=== PATIENT | female | born 1970 | race Caucasian/White ===

== ENCOUNTER → 2016-03-29 | Outpatient (CLI) | payer BC ==
[~2016-03-29] MED LIST: ASPI81TA28 PO; BUPR-79 PO; CHOL100010 PO; CLC100 PO; DAPA1TAB2 PO; ESZO1TAB16 PO; EZET10TA63 PO; HYDR200T5 PO; INSDGI SC; LORA-741 PO; MOMLX PO; MTR600X PO; OMEP20CA59 PO; ONDA4TAB46 PO; OXYC5TAB PO; RANI300T2 PO; SIMV80TA2 PO
[2016-03-29 09:32] LABS: BASO % 0.3 %; BASO ABS # 0.06 K/uL (0-0.2); COMPLETE YES; EOS % 2.1 %; HEMATOCRIT 44.9 % (37-47); IG% 0.3 %; LYMPH % 27.1 %; LYMPH ABS # 4.66 K/uL (1.2-3.4); MEAN CELL VOLUME 87.7 fL (80-100); MEAN CORPUSCULAR HEMOGLOBIN 29.7 pg (25-34); MEAN CORPUSCULAR HGB CONC 33.9 g/dl (32-36); MEAN PLATELET VOLUME 9.7 fL (7.4-10.4); MONO % 5.4 %; NEUT % 64.8 %; PLATELET COUNT 453 K/uL (130-400); RED BLOOD COUNT 5.12 M/uL (4.2-5.4); WHITE BLOOD COUNT 17.19 K/uL (4.8-10.8)
[2016-03-29 09:51] LABS: ESTIMATED AVERAGE GLUCOSE 166 mg/dl; HA1C FLAG Normal (Normal)
[2016-03-29 10:08] LABS: ALT/SGPT 19 U/L (12-78); AST/SGOT 8 U/L (15-37); BLOOD UREA NITROGEN 17 mg/dl (7-18); CALCIUM 8.9 mg/dl (8.5-10.1); CARBON DIOXIDE 23 mmol/L (21-32); CHLORIDE 106 mmol/L (98-107); CHOLESTEROL 189 mg/dl (0-200); CREATININE 0.76 mg/dl (0.60-1.20); GLUCOSE 160 mg/dl (70-99); POTASSIUM 3.9 mmol/L (3.5-5.1); SODIUM 140 mmol/L (136-145); TRIGLYCERIDES 449 mg/dl (0-150)
[2016-03-29 10:11] LABS: HDL CHOLESTEROL 21 mg/dl
== END | disposition home or self-care (01) ==
LOC: C.LAB1850 07:19
DX: E11.9 Type 2 diabetes mellitus without complications (principal); E78.5 Hyperlipidemia, unspecified

== ENCOUNTER → 2016-03-31 | Outpatient (CLI) | payer BC ==
[2016-03-31 17:20] LABS: BASO % 0.2 %; BASO ABS # 0.04 K/uL (0-0.2); COMPLETE YES; EOS % 1.7 %; HEMATOCRIT 47.3 % (37-47); IG% 0.4 %; LYMPH % 27.1 %; MEAN CELL VOLUME 88.2 fL (80-100); MEAN PLATELET VOLUME 9.2 fL (7.4-10.4); MONO % 5.4 %; NEUT % 65.2 %; PLATELET COUNT 420 K/uL (130-400); RED BLOOD COUNT 5.36 M/uL (4.2-5.4); WHITE BLOOD COUNT 18.09 K/uL (4.8-10.8)
--- NOTE | 2016-03-31 17:48 | DIAGNOSTIC IMAGING REPORT ---
CHEST 2 VIEWS ROUTINE HISTORY: Atypical CHEST PAIN/LEUKOCYTOSIS COMPARISON: None. FINDINGS: The lungs are clear. Cardiac silhouette is normal in size. No pleural effusions. No pneumothorax. IMPRESSION: No acute process. Electronically signed by: Wilton Duckworth M.D. 03/31/2016 5:47 PM Dictated Date/Time: 03/31/2016 5:46 PM
[2016-03-31 18:03] LABS: CKMB/CK RATIO 1.4 (0-3.0)
== END | disposition home or self-care (01) ==
LOC: C.CPL 16:54
DX: R07.9 Chest pain, unspecified (principal); D72.829 Elevated white blood cell count, unspecified

== ENCOUNTER → 2016-04-22 | Outpatient (CLI) | payer BC ==
--- NOTE | 2016-04-22 17:11 | EXERCISE STRESS ECHO ---
*NOTICE TO RECEIVING REPUBLICAN AGENCY This information is strictly Confidential and protected under [place] law. [place] law prohibits you from making any further disclosure of this information unless further disclosure is expressly permitted by the written consent of the person to whom it pertains or is authorized by law. A general authorization for the release of medical or other information is not sufficient for this purpose. Hospital accepts no responsibility if the information is made available to any other person, INCLUDING THE PATIENT. Interpretation Summary * Name: JOSEPH LAU Study Date: 04/22/2016 09:45 AM BP: 115/64 mmHg * Patient Location: [facility] HR: 87 * : 1970 (M/d/yyyy) Gender: Female Height: 61 in * Age: 45 yrs Ethnicity: [place] Weight: 139 lb * Ordering Physician: Easton Hua * Referring Physician: Easton Hua D.O. * Performed By: Anitra Falcon * * Reason For Study: REDUCED EXERTIONAL TOLERANCE, DYSPNEA, DIABETES * BSA: 1.6 m2 * -- Conclusions -- * Left ventricular systolic function is normal. Procedure Details * ECHOEX, CPT #99246 * ECHO DOPPLER, CPT #19812 * ECHO COLOR FLOW, CPT #46778 Left Ventricular Findings with Stress * Normal baseline echocardiogram EKG and echo images suggest mild ischemia in the anterior apex., but her overall risk for coronary disease is low Left Ventricle * The left ventricle is normal in size. * There is normal left ventricular wall thickness. * Left ventricular systolic function is normal. * The left ventricular wall motion is normal. Right Ventricle * The right ventricle is normal in size and function. Atria * The left atrial size is normal. * Right atrial size is normal. Mitral Valve * The mitral valve is grossly normal. * There is no mitral regurgitation noted. Tricuspid Valve * The tricuspid valve is not well visualized, but is grossly normal. * There is trace tricuspid regurgitation. Aortic Valve * The aortic valve is normal in structure and function. * No hemodynamically significant valvular aortic stenosis. * There is no significant aortic regurgitation. Great Vessels * The aortic root is normal size. Pericardium * There is no pericardial effusion. Stress Parameters * Sinus with T-wave flattening * 05mm horozontal depressions at peak exertion whcih resolved quickly in recovery * The stress portion of this study was personally supervised by the undersigned interpreting physician. * Rest heart rate was '87' BPM. * Rest blood pressure was '115/64' * Maximum heart rate achieved was 141 bpm. * Maximum heart rate was 81 % of maximum age-predicted heart rate. * Maximum blood pressure was '181/71' * Total exercise time was '8:28' * Maximum exercise MET level achieved was '10.1' METS * Maximum treadmill speed was '3.40' miles per hour. * Maximum treadmill elevation was '14.00'% grade. * Exercise was terminated due to 'fatigue.' * Target Heart Rate was not achieved due to fatigue. * The patient exhibited leg pain during exercise. * Normal blood pressure response to exercise. Left Ventricular Findings with Stress * Baseline echo reveals normal function and wall motion. Stress images suggest inducible hypokinesis of the anterior apex (mild) in one view No symptoms reported. Hughes treadmill score: 6 (low risk) Left Ventricular Diastolic Function * Normal diastolic function MMode 2D Measurements and Calculations IVSd 1.1 cm IVSs 1.5 cm LVIDd 4.0 cm LVIDs 2.7 cm LVPWd 0.88 cm LVPWs 1.3 cm IVS/LVPW 1.2 FS 30.7 % EDV(Teich) 68.5 ml ESV(Teich) 28.2 ml EF(Teich) 58.8 % EDV(cubed) 62.3 ml ESV(cubed) 20.8 ml EF(cubed) 66.7 % % IVS thick 36.3 % % LVPW thick 50.4 % LV mass(C)d 121.5 grams LV mass(C)dI 75.1 grams/m\S\2 LV mass(C)s 124.9 grams LV mass(C)sI 77.2 grams/m\S\2 CO(Teich) 3.1 l/min CI(Teich) 1.9 l/min/m\S\2 SV(Teich) 40.3 ml SI(Teich) 24.9 ml/m\S\2 CO(cubed) 3.2 l/min CI(cubed) 2.0 l/min/m\S\2 SV(cubed) 41.5 ml SI(cubed) 25.7 ml/m\S\2 ACS 1.1 cm LA dimension 3.0 cm asc Aorta Diam 2.4 cm LVOT diam 1.7 cm LVOT area 2.2 cm\S\2 LVAd ap4 22.0 cm\S\2 LVLd ap4 7.0 cm EDV(MOD-sp4) 58.4 ml LVAs ap4 13.1 cm\S\2 LVLs ap4 6.1 cm ESV(MOD-sp4) 24.5 ml EF(MOD-sp4) 58.0 % LVAd ap2 19.8 cm\S\2 LVLd ap2 7.1 cm EDV(MOD-sp2) 46.4 ml LVAs ap2 11.1 cm\S\2 LVLs ap2 5.5 cm ESV(MOD-sp2) 18.6 ml EF(MOD-sp2) 59.9 % CO(MOD-sp4) 2.6 l/min CI(MOD-sp4) 1.6 l/min/m\S\2 SV(MOD-sp4) 33.9 ml SI(MOD-sp4) 20.9 ml/m\S\2 CO(MOD-sp2) 2.2 l/min CI(MOD-sp2) 1.3 l/min/m\S\2 SV(MOD-sp2) 27.8 ml SI(MOD-sp2) 17.2 ml/m\S\2 Doppler Measurements and Calculations MV E max john 85.2 cm/sec MV A max john 71.8 cm/sec MV E/A 1.2 MV dec time 0.20 sec Ao V2 max 160.2 cm/sec Ao max PG 10.3 mmHg Ao max PG (full) 5.5 mmHg SHIV(V,A) 1.5 cm\S\2 SHIV(V,D) 1.5 cm\S\2 LV V1 max PG 4.7 mmHg LV V1 mean PG 2.2 mmHg LV V1 max 108.8 cm/sec LV V1 mean 68.1 cm/sec LV V1 VTI 24.9 cm SV(LVOT) 54.0 ml SI(LVOT) 33.3 ml/m\S\2 PA V2 max 66.4 cm/sec PA max PG 1.8 mmHg PI end-d john 106.6 cm/sec
== END | disposition home or self-care (01) ==
LOC: C.CPL 09:28
DX: R06.09 Other forms of dyspnea (principal); E78.5 Hyperlipidemia, unspecified; E11.8 Type 2 diabetes mellitus with unspecified complications; Z87.891 Personal history of nicotine dependence; Z82.49 Family history of ischemic heart disease and other diseases of the circulatory system

== ENCOUNTER → 2016-05-26 | Outpatient (CLI) | payer BC ==
[~2016-05-26] MED LIST changes: -DAPA1TAB2 PO; +DAPA1TAB8 PO
[2016-05-26 09:36] LABS: BASO % 0.2 %; BASO ABS # 0.03 K/uL (0-0.2); COMPLETE YES; EOS % 1.7 %; HEMATOCRIT 46.6 % (37-47); IG% 0.1 %; LYMPH % 24.1 %; LYMPH ABS # 3.47 K/uL (1.2-3.4); MEAN CELL VOLUME 90.5 fL (80-100); MEAN CORPUSCULAR HEMOGLOBIN 30.7 pg (25-34); MEAN CORPUSCULAR HGB CONC 33.9 g/dl (32-36); MEAN PLATELET VOLUME 9.8 fL (7.4-10.4); MONO % 5.5 %; NEUT % 68.4 %; PLATELET COUNT 382 K/uL (130-400); RED BLOOD COUNT 5.15 M/uL (4.2-5.4); WHITE BLOOD COUNT 14.37 K/uL (4.8-10.8)
[2016-05-26 09:54] LABS: ESTIMATED AVERAGE GLUCOSE 171 mg/dl; HA1C FLAG Normal (Normal)
[2016-05-30 00:37] LABS: ENDOMYSIAL IGA AB TC 15064 Negative (Negative); GLIADIN DEAMIDATED IgA AB 4 UNITS (<20); GLIADIN DEAMIDATED IgG AB 8 UNITS (<20)
--- NOTE | 2016-05-31 13:19 | CODING QUERY MEDICAL NECESSITY ---
SUPPORTING DIAGNOSIS NEEDED A supporting diagnosis is required for the test/procedure performed on this patient in order for us to be reimbursed by the patient's insurance. Please provide a supporting diagnosis for the following test/procedure listed below next to the test name along with your signature. *If there is no additional diagnosis for this patient that would support the following test/procedure please document that below next to the test/procedure. Test(s)/Procedure(s) that require a supporting diagnosis: DOS 05/26 * Vitamin D DIAGNOSIS: Provider Signature: Date: Thank you Marcela King Health Information Management Once completed, please kindly fax back to [phone] For questions please call [phone]
== END | disposition home or self-care (01) ==
LOC: C.LAB1850 07:52
DX: D72.829 Elevated white blood cell count, unspecified (principal); R10.9 Unspecified abdominal pain; E11.9 Type 2 diabetes mellitus without complications; E55.9 Vitamin D deficiency, unspecified

== ENCOUNTER → 2016-07-19 | Outpatient (CLI) | payer BC ==
[2016-07-19 10:09] LABS: BLOOD UREA NITROGEN 15 mg/dl (7-18); BUN/CREATININE RATIO 17.9 (10-20); CARBON DIOXIDE 23 mmol/L (21-32); CHLORIDE 108 mmol/L (98-107); CREATININE 0.86 mg/dl (0.60-1.20); GLUCOSE 176 mg/dl (70-99); POTASSIUM 3.9 mmol/L (3.5-5.1); SODIUM 141 mmol/L (136-145)
[2016-07-19 10:15] LABS: CALCIUM 8.9 mg/dl (8.5-10.1)
[2016-07-19 10:18] LABS: ESTIMATED AVERAGE GLUCOSE 157 mg/dl; HA1C FLAG Normal (Normal)
[2016-07-19 10:21] LABS: RATIO 26.8 mcg/mg (0-30.0)
== END | disposition home or self-care (01) ==
LOC: C.LAB1850 07:34
DX: E11.9 Type 2 diabetes mellitus without complications (principal)

== ENCOUNTER → 2016-10-05 | Outpatient (CLI) | payer BC ==
[~2016-10-05] MED LIST changes: +DAPA1TAB2 PO; -DAPA1TAB8 PO
[2016-10-05 09:54] LABS: BASO % 0.4 %; BASO ABS # 0.06 K/uL (0-0.2); COMPLETE YES; EOS % 2.3 %; HEMATOCRIT 45.7 % (37-47); IG% 0.4 %; LYMPH % 20.9 %; LYMPH ABS # 3.32 K/uL (1.2-3.4); MEAN CELL VOLUME 90.3 fL (80-100); MEAN CORPUSCULAR HEMOGLOBIN 30.4 pg (25-34); MEAN CORPUSCULAR HGB CONC 33.7 g/dl (32-36); MEAN PLATELET VOLUME 10.2 fL (7.4-10.4); PLATELET COUNT 359 K/uL (130-400); RED BLOOD COUNT 5.06 M/uL (4.2-5.4); WHITE BLOOD COUNT 15.92 K/uL (4.8-10.8)
[2016-10-05 10:03] LABS: BLOOD UREA NITROGEN 19 mg/dl (7-18); BUN/CREATININE RATIO 23.8 (10-20); CARBON DIOXIDE 27 mmol/L (21-32); CHLORIDE 105 mmol/L (98-107); CREATININE 0.79 mg/dl (0.60-1.20); GLUCOSE 147 mg/dl (70-99); SODIUM 137 mmol/L (136-145)
[2016-10-05 10:10] LABS: ESTIMATED AVERAGE GLUCOSE 148 mg/dl; HA1C FLAG Normal (Normal)
== END | disposition home or self-care (01) ==
LOC: C.LAB1850 07:31
DX: D72.829 Elevated white blood cell count, unspecified (principal); E11.9 Type 2 diabetes mellitus without complications

== ENCOUNTER → 2016-12-22 | Outpatient (CLI) | payer BC ==
[~2016-12-22] MED LIST changes: -DAPA1TAB2 PO; +DAPA1TAB8 PO
[2016-12-22 09:37] LABS: BASO % 0.5 %; BASO ABS # 0.06 K/uL (0-0.2); COMPLETE YES; EOS % 2.4 %; HEMATOCRIT 45.4 % (37-47); IG% 0.3 %; LYMPH ABS # 3.53 K/uL (1.2-3.4); MEAN CELL VOLUME 90.4 fL (80-100); MEAN CORPUSCULAR HEMOGLOBIN 30.7 pg (25-34); MEAN CORPUSCULAR HGB CONC 33.9 g/dl (32-36); MEAN PLATELET VOLUME 9.4 fL (7.4-10.4); MONO % 6.6 %; NEUT % 63.2 %; PLATELET COUNT 422 K/uL (130-400); RED BLOOD COUNT 5.02 M/uL (4.2-5.4); WHITE BLOOD COUNT 13.07 K/uL (4.8-10.8)
[2016-12-22 09:47] LABS: ALT/SGPT 24 U/L (12-78); AST/SGOT 16 U/L (15-37); BLOOD UREA NITROGEN 18 mg/dl (7-18); BUN/CREATININE RATIO 22.9 (10-20); CALCIUM 8.5 mg/dl (8.5-10.1); CARBON DIOXIDE 26 mmol/L (21-32); CHLORIDE 106 mmol/L (98-107); CHOLESTEROL 168 mg/dl (0-200); GLUCOSE 156 mg/dl (70-99); POTASSIUM 3.9 mmol/L (3.5-5.1); SODIUM 140 mmol/L (136-145)
[2016-12-22 09:50] LABS: HDL CHOLESTEROL 28 mg/dl; TRIGLYCERIDES 149 mg/dl (0-150); VERY LOW DENSITY LIPOPROT CALC 30 mg/dl
[2016-12-22 10:14] LABS: ESTIMATED AVERAGE GLUCOSE 151 mg/dl; HA1C FLAG Normal (Normal)
== END | disposition home or self-care (01) ==
LOC: C.LAB1850 07:35
DX: E11.9 Type 2 diabetes mellitus without complications (principal); E78.5 Hyperlipidemia, unspecified; D72.829 Elevated white blood cell count, unspecified

== ENCOUNTER → 2017-08-30 | Outpatient (CLI) | payer OTHER ==
[~2017-08-30] MED LIST changes: +DAPA1TAB8; +NTRGSL/4 UT; +NVLGI7030 SC; +PLQ200; +ROSU40TA PO; +[UNRECOGNIZED DRUG - OTHER]
--- NOTE | 2017-08-30 16:34 | DIAGNOSTIC IMAGING REPORT ---
CERVICAL WITHOUT CONTRAST HISTORY: Pain. Neuropathy. CERVICAL RADICULOPATHY, RT SIDE TECHNIQUE: Multiplanar multisequence MRI of the cervical spine was performed without the use of contrast. COMPARISON STUDY: None. FINDINGS: Signal characteristics of the vertebral bodies are unremarkable. Minimal disc desiccation C6-C7. Signal characteristics of all the vertebral disks otherwise are unremarkable. Note is made of low-lying cerebellar tonsils C2-C3: No significant central canal or neural foraminal narrowing. C3-C4: No significant central canal or neural foraminal narrowing. C4-C5: No significant central canal or neural foraminal narrowing. C5-C6: No significant central canal or neural foraminal narrowing. C6-C7: Moderate right posterior disc herniation. Mild focal impact right anterior aspect cervical cord with moderate narrowing right neuroforamina. C7-T1: No significant central canal or neural foraminal narrowing. IMPRESSION: 1. Mild right posterior disc herniation C6-C7.. 2. This creates a mild impact upon the anterior aspect of the cervical cord as well as mild compromise of the right neuroforamina.. 3. Study is otherwise negative. The above report was generated using voice recognition software. It may contain grammatical, syntax or spelling errors. Electronically signed by: Yang Arriaza M.D. 08/30/2017 4:33 PM Dictated Date/Time: 08/30/2017 4:30 PM
== END | disposition home or self-care (01) ==
LOC: C.MRI 15:40
DX: M50.20 Other cervical disc displacement, unspecified cervical region (principal)

== ENCOUNTER → 2017-09-12 | Outpatient (CLI) | payer OTHER ==
[~2017-09-12] MED LIST changes: -CLC100 PO; -DAPA1TAB8; -EZET10TA63 PO; -HYDR200T5 PO; -INSDGI SC; -MOMLX PO; -OXYC5TAB PO; -SIMV80TA2 PO
== END | disposition home or self-care (01) ==
LOC: C.LABSPEC 14:59
DX: N39.0 Urinary tract infection, site not specified (principal)

== ENCOUNTER 2022-03-11 15:15 | Inpatient (IN) ==
[2022-03-11 15:51] LABS: Basophils % (auto) 0.5 %; Eosinophils # (auto) 0.19 K/uL (0-0.50); Eosinophils % (auto) 0.9 %; Hematocrit (blood only) 46.7 % (37.0-47.0); Immature Granulocytes # (auto) 0.12 K/uL (0.01-0.20); Immature Granulocytes % (auto) 0.5 %; Lymphocytes # (auto) 2.83 K/uL (1.2-3.4); Lymphocytes % (auto) 12.9 %; Mean Corpuscular Hemoglobin 30.9 pg (25.0-34.0); Mean Corpuscular Hgb Conc 34.3 g/dL (32.0-36.0); Mean Corpuscular Volume 90.3 fL (80.0-100.0); Monocytes # (auto) 1.46 K/uL (0.11-0.59); Monocytes % (auto) 6.6 %; Neutrophils # (auto) 17.31 K/uL (1.40-6.50); Neutrophils % (auto) 78.6 %; Platelet Count 403 K/uL (130-400); RDW Coefficient of Variation 13.3 % (11.5-14.5); RDW Standard Deviation 44.1 fL (36.4-46.3); Red Blood Count 5.17 M/uL (4.20-5.40); White Blood Count 22.01 K/ul (4.8-10.8)
[2022-03-11 16:02] LABS: Partial Thromboplastin Ratio 1.1; Partial Thromboplastin Time 31.3 Seconds (21.0-31.0); Prothrombin Time 10.9 Seconds (9.0-12.0)
[2022-03-11 16:05] LABS: Albumin Level 4.4 gm/dl (3.4-5.0); Anion Gap 9 (3-11); Bilirubin,Total 0.4 mg/dl (0.2-1.0); Calcium 10.1 mg/dl (8.5-10.1); Carbon Dioxide 28 mmol/L (21-32); Chloride 101 mmol/L (98-107); Magnesium 1.8 mg/dl (1.7-2.4); Potassium 4.1 mmol/L (3.5-5.1); Sodium 138 mmol/L (136-145)
[2022-03-11 16:11] LABS: Alanine Aminotransferase 15 U/L (7-52); Albumin Globulin Ratio 1.3 (0.9-2); Alkaline Phosphatase 95 U/L (34-104); Aspartate Aminotransferase 14 U/L (13-39); BUN Creatinine Ratio 15.7 (10-20); Blood Urea Nitrogen 14 mg/dl (6-23); Est GFR (African American) 85.8 ml/min; Globulin 3.4 gm/dl (2.5-4.0); Glucose 156 mg/dl (70-99(Fasting)); Total Protein 7.8 gm/dl (6.0-8.3)
[2022-03-11] MEDS ORDERED: CEFEPIME 2,000 MG/20 ML VIAL IV STA (16:12)
[2022-03-11] MEDS ORDERED: SODIUM CHLORIDE 0.9% 1000ML 1,000 ML IV SCH (16:15)
[2022-03-11] MEDS ORDERED: methylPREDNISolone 125 MG/2 ML VIAL IV STA (16:22)
[2022-03-11] MEDS ORDERED: ALBUT/IPRATROP 3MG/0.5MG NEB 3 ML VIAL NEB STA (16:22)
[2022-03-11] MEDS: SODIUM CHLORIDE 0.9% 1000ML 1,000 ML IV SCH ×2 (16:53→18:01)
--- NOTE | 2022-03-11 17:03 | XRay Report ---
XR chest 1V portable HISTORY: 51 years-old Female Sepsis acute chest pain COMPARISON: 01/01/2019 TECHNIQUE: AP view of the chest FINDINGS: Cardiomediastinal and hilar silhouettes are within normal limits. Subtle ill-defined patchy left midl joe airspace opacities. No pneumothorax, large pleural effusion or overt pulmonary edema. Bones of th e chest appear grossly intact. IMPRESSION: Subtle ill-defined left midlung airspace opacities are suspicious for pneumonia. ACT 112: Negative or not required by law. The above report was generated using voice recognition software. It may contain grammatical, syntax o r spelling errors. Electronically signed by: Casper Huber M.D. 03/11/2022 5:01 PM
[2022-03-11 17:57] LABS: Troponin I High Sensitivity 8.3 pg/ml (0-14)
[2022-03-11] MEDS ORDERED: ACETAMINOPHEN 325 MG TAB PO STA (18:09)
--- NOTE | 2022-03-11 18:13 | Emergency Department Note ---
Impression & Plan Pneumonia, Hypoxia ED Provider Note INFORMANT: Patient ED PROVIDER(S): Papo Law DO CHIEF COMPLAINT: Low pulse ox, pneumonia PLAN: Disposition: Admission Condition: Stable Outpatient prescription management: none Referral: I spoke with the hospitalist, who will see the patient for admission /observation and further evaluation and consultation. MEDICAL DECISION MAKING: This is a 51-year-old female who presents to the ED with a chief complaint of upper respiratory cold symptoms. The patient states that she saw her PCP yesterday and was clinically diagnosed with pneumonia. She was started on a Z- Aden. She states that her pulse ox at the office was in the high 80s. She does have a history of smoking and likely COPD although no formal diagnosis has ever been made. She reports 1 week of cough and upper respiratory symptoms. She took a home COVID test a couple of days ago that was negative. The patient also is a insulin-dependent diabetic. She reports pulse ox in the low 80s at home today and decided to come in for further evaluation. The patient also had a dose of prednisone last night. She was started on this. No inhalers. She does have wheezing on my exam. The patient does have a pneumonia in the left lung on chest x-ray. She does have a leukocytosis with a white blood cell count around 22,000. EKG showed a sinus tach at a rate of 110. Lactic acid and procalcitonin are negative. Because of the patient's hypoxia, I spoke with the hospitalist about inpatient evaluation. She was given IV cefepime here as well as 30 cc/kg of IV fluids and IV Solu-Medrol as well as a DuoNeb treatment. Triage Nursing notes reviewed. Vital Signs: reviewed Prior /Outside records reviewed: none Differential diagnosis: Differential includes pneumonia, bronchitis, pulmonary embolism, congestive heart failure less likely, other. Diagnostics, as interpreted by me: 12 lead ECG: Sinus tach at a rate of 110. No ST elevation. No PVCs. Normal QTC Cardiac Monitoring: none Medical decision rules: none Imaging studies: Chest x-ray: Left middle lobe pneumonia Procedures: none. Critical care: none. HPI: See MDM above. PAST MEDICAL HISTORY: See Below PAST SURGICAL HISTORY: See Below SOCIAL HISTORY: See Below HOME MEDICATIONS: See Below ALLERGIES: See Below VITALS: See Below PHYSICAL EXAMINATION: CONSTITUTIONAL/VITAL SIGNS: Reviewed GENERAL: Non-toxic in appearance. INTEGUMENTARY: Warm, dry, and [place]. HEAD: Normocephalic. EYES: without scleral icterus. ENT/OROPHARYNX: clear and moist. RESPIRATORY: No increased work of breathing. Lungs diminished bilaterally with some expiratory wheezing. CARDIOVASCULAR: Regular rate. Regular rhythm. GI/ABDOMEN: Soft and nontender. . EXTREMITIES: Normal NEUROLOGICAL: Intact without focal deficits. PSYCHIATRIC: Normal affect. MUSCULOSKELETAL: Normal. TRIAGE NURSING DOCUMENTATION REVIEWED. Past Med/Surg History Medical History (Updated 03/11/22 @ 18:13 by Papo Law DO) Anxiety disorder Depressive disorder Diabetes Diverticulitis Fibroid, uterine GERD (gastroesophageal reflux disease) Hypercholesterolemia Osteoarthritis Surgical History History of bilateral carpal tunnel release History of hysterectomy History of recent maxillofacial surgery Social History Smoking Status: Never smoker Cigarettes Per Day: 1 ppd; Preferred Language: Ug[place] marital status: Current Living Situation: Spouse current occupational status: employed current occupation: [employer] x 20 years Feels Safe at Home: Yes Allergies Allergies Allergy/AdvReac Type Severity Reaction Status Date / Time metformin AdvReac Unknown GI UPSET Verified 06/18/21 12:44 Home Meds Home Medications Medication Instructions Recorded Confirmed gabapentin 300 mg capsule 300 mg PO HS 05/30/18 06/18/21 aspirin 81 mg tablet,delayed 81 mg PO QAM 06/29/18 06/18/21 release (Adult Low Dose Aspirin) bupropion HCl 150 mg 24 hr tablet, 150 mg PO QAM 06/29/18 06/18/21 extended release (Wellbutrin XL) eszopiclone 3 mg tablet (Lunesta) 3 mg PO HS 06/29/18 06/18/21 hydroxychloroquine 200 mg tablet 200 mg PO QAM 06/29/18 06/18/21 (Plaquenil) ibuprofen 600 mg tablet 600 mg PO Q6H PRN pain 06/29/18 06/18/21 insulin admin supplies (InPen (for #1 ea 06/29/18 06/29/18 Novolog or Fiasp) subcutaneous) lorazepam 0.5 mg tablet (Ativan) 0.5 mg PO DAILY PRN Anxiety 06/29/18 06/18/21 nitroglycerin 0.4 mg sublingual 0.4 mg sublingual Q5M PRN Chest 06/29/18 06/18/21 tablet (Nitrostat) Pain omeprazole 40 mg capsule,delayed 40 mg PO Q OTHER DAY 06/29/18 06/18/21 release ondansetron 4 mg disintegrating 4 mg PO Q8H PRN Nausea 06/29/18 06/18/21 tablet ranitidine HCl 300 mg tablet 300 mg PO HS 06/29/18 06/18/21 (Zantac) rosuvastatin 40 mg tablet (Crestor) 40 mg PO PM 06/29/18 06/18/21 amitriptyline 10 mg tablet 30 mg PO HS 01/01/19 06/18/21 clonidine HCl 0.1 mg tablet 0.1 mg PO HS 01/01/19 06/18/21 insulin aspart U-100 100 unit/mL 0 unit subcut UD 01/01/19 06/18/21 (3 mL) subcutaneous pen (Novolog FlexPen U-100 Insulin aspart) dulaglutide 0.75 mg/0.5 mL 0.75 mg subcut WK 06/18/21 06/18/21 subcutaneous pen injector (Trulicity) Results & Data (ED) Vital Signs Vital Signs - 24 hr 03/11/22 15:26 03/11/22 15:29 03/11/22 16:55 Temperature 36.8 C Temperature Source Temporal Artery Scan Pulse Rate 107 H 101 H Pulse Rhythm Regular Regular Pulse Strength Normal Respiratory Rate 20 20 Respiratory Effort / Characteristics Non-Labored Spontaneous Respiratory Depth Normal Respiratory Pattern Regular Blood Pressure 156/79 H Blood Pressure Mean 104 Blood Pressure Position Sitting Pulse Oximetry 86 L 92 99 Oxygen Delivery Method Room Air Nasal Cannula Nasal Cannula Oxygen Flow Rate 4 4 Sepsis Recent Fever Within 48 Hours No Sepsis New/Unexplained Change in Mental Status No Sepsis Action Taken by Nursing No Action Required 03/11/22 16:38 03/11/22 16:45 Temperature Temperature Source Pulse Rate 106 H 108 H Pulse Rhythm Pulse Strength Respiratory Rate 35 H 33 H Respiratory Effort / Characteristics Respiratory Depth Respiratory Pattern Blood Pressure 127/66 Blood Pressure Mean 86 Blood Pressure Position Pulse Oximetry Oxygen Delivery Method Oxygen Flow Rate Sepsis Recent Fever Within 48 Hours Sepsis New/Unexplained Change in Mental Status Sepsis Action Taken by Nursing Laboratory Data 03/11/22 15:40 03/11/22 15:40 Lab Results 03/11/22 03/11/22 03/11/22 Range/Units 15:40 15:40 15:40 WBC 22.01 H (4.8-10.8) K/ul RBC 5.17 (4.20-5.40) M/uL Hgb 16.0 (12.0-16.0) g/dl Hct 46.7 (37.0-47.0) % MCV 90.3 (80.0-100.0) fL MCH 30.9 (25.0-34.0) pg MCHC 34.3 (32.0-36.0) g/dL RDW Std Deviation 44.1 (36.4-46.3) fL RDW Coeff of Narcisa 13.3 (11.5-14.5) % Plt Count 403 H (130-400) K/uL MPV 9.0 L (9.4-12.4) fL Immature Gran % (Auto) 0.5 % Neut % (Auto) 78.6 % Lymph % (Auto) 12.9 % [place] % (Auto) 6.6 % Eos % (Auto) 0.9 % Baso % (Auto) 0.5 % Neut # (Auto) 17.31 H (1.40-6.50) K/uL Lymph # (Auto) 2.83 (1.2-3.4) K/uL [place] # (Auto) 1.46 H (0.11-0.59) K/uL Eos # (Auto) 0.19 (0-0.50) K/uL Baso # (Auto) 0.10 (0-0.2) K/uL Immature Gran # (Auto) 0.12 (0.01-0.20) K/uL PT 10.9 (9.0-12.0) Seconds INR 1.0 (0.9-1.1) APTT 31.3 H (21.0-31.0) Seconds PTT Ratio 1.1 Sodium 138 (136-145) mmol/L Potassium 4.1 (3.5-5.1) mmol/L Chloride 101 (98-107) mmol/L Carbon Dioxide 28 (21-32) mmol/L Anion Gap 9 (3-11) BUN 14 (6-23) mg/dl Creatinine 0.89 (0.6-1.2) mg/dl Est Cr Clr Drug Dosing Not Reportable Est GFR ( Amer) 85.8 ml/min Est GFR (Non-Af Amer) 74.0 ml/min BUN/Creatinine Ratio 15.7 (10-20) Glucose 156 H (70-99(Fasting)) mg/dl Lactate (0.4-2.0) mmol/L Calcium 10.1 (8.5-10.1) mg/dl Magnesium 1.8 (1.7-2.4) mg/dl Total Bilirubin 0.4 (0.2-1.0) mg/dl AST 14 (13-39) U/L ALT 15 (7-52) U/L Alkaline Phosphatase 95 (34-104) U/L Troponin I High Sens 8.3 (0-14) pg/ml Total Protein 7.8 (6.0-8.3) gm/dl Albumin 4.4 (3.4-5.0) gm/dl Globulin 3.4 (2.5-4.0) gm/dl Albumin/Globulin Ratio 1.3 (0.9-2) Procalcitonin (0-0.5) ng/ml 03/11/22 03/11/22 03/11/22 Range/Units 15:40 15:40 16:41 WBC (4.8-10.8) K/ul RBC (4.20-5.40) M/uL Hgb (12.0-16.0) g/dl Hct (37.0-47.0) % MCV (80.0-100.0) fL MCH (25.0-34.0) pg MCHC (32.0-36.0) g/dL RDW Std Deviation (36.4-46.3) fL RDW Coeff of Narcisa (11.5-14.5) % Plt Count (130-400) K/uL MPV (9.4-12.4) fL Immature Gran % (Auto) % Neut % (Auto) % Lymph % (Auto) % [place] % (Auto) % Eos % (Auto) % Baso % (Auto) % Neut # (Auto) (1.40-6.50) K/uL Lymph # (Auto) (1.2-3.4) K/uL [place] # (Auto) (0.11-0.59) K/uL Eos # (Auto) (0-0.50) K/uL Baso # (Auto) (0-0.2) K/uL Immature Gran # (Auto) (0.01-0.20) K/uL PT (9.0-12.0) Seconds INR (0.9-1.1) APTT (21.0-31.0) Seconds PTT Ratio Sodium (136-145) mmol/L Potassium (3.5-5.1) mmol/L Chloride (98-107) mmol/L Carbon Dioxide (21-32) mmol/L Anion Gap (3-11) BUN (6-23) mg/dl Creatinine (0.6-1.2) mg/dl Est Cr Clr Drug Dosing Est GFR ( Amer) ml/min Est GFR (Non-Af Amer) ml/min BUN/Creatinine Ratio (10-20) Glucose (70-99(Fasting)) mg/dl Lactate 0.7 (0.4-2.0) mmol/L Calcium (8.5-10.1) mg/dl Magnesium (1.7-2.4) mg/dl Total Bilirubin (0.2-1.0) mg/dl AST (13-39) U/L ALT (7-52) U/L Alkaline Phosphatase (34-104) U/L Troponin I High Sens Cancelled (0-14) pg/ml Total Protein (6.0-8.3) gm/dl Albumin (3.4-5.0) gm/dl Globulin (2.5-4.0) gm/dl Albumin/Globulin Ratio (0.9-2) Procalcitonin 0.08 (0-0.5) ng/ml Administered Medications Sodium Chloride (Nss 1000ml) 1,000 mls @ 999 mls/hr IV .Q1H1M LUCAS Stop: 03/11/22 18:15 Last Admin: 03/11/22 18:01 Dose: 999 mls/hr Documented By: [id number] Infusion: 03/11/22 17:54 Dose: 999 mls/hr Documented By: [id number] Admin: 03/11/22 16:53 Dose: 999 mls/hr Documented By: AJH Discontinued Medications Albuterol (Albut/Ipratrop 3mg/0.5mg Neb 3 Ml Vial) 3 ml NEB NOW STA; Protocol Stop: 03/11/22 16:23 Last Admin: 03/11/22 16:54 Dose: 3 ml Documented By: JO ANN Sodium Chloride (Nss 1000ml) 1,000 mls @ 999 mls/hr IV .Q1H1M LUCAS Stop: 03/11/22 17:15 Last Infusion: 03/11/22 18:02 Dose: 0 mls/hr Documented By: [id number] Admin: 03/11/22 16:53 Dose: 999 mls/hr Documented By: JO ANN Cefepime HCl (Maxipime) 2,000 mg in 20 mls @ 5 mls/min IV NOW STA; Protocol Stop: 03/11/22 16:15 Last Admin: 03/11/22 16:53 Dose: 5 mls/min Documented By: JO ANN Methylprednisolone (Methylprednisolone 125 Mg/2 Ml Vial) 125 mg IV NOW STA Stop: 03/11/22 16:23 Last Admin: 03/11/22 16:54 Dose: 125 mg Documented By: JO ANN Imaging Data Radiologist's Impression: Chest X-Ray 03/11/22 16:13 XR chest 1V portable HISTORY: 51 years-old Female Sepsis acute chest pain COMPARISON: 01/01/2019 TECHNIQUE: AP view of the chest FINDINGS: Cardiomediastinal and hilar silhouettes are within normal limits. Subtle ill- defined patchy left midlung airspace opacities. No pneumothorax, large pleural effusion or overt pulmonary edema. Bones of the chest appear grossly intact. IMPRESSION: Subtle ill-defined left midlung airspace opacities are suspicious for pneumonia. ACT 112: Negative or not required by law. The above report was generated using voice recognition software. It may contain grammatical, syntax or spelling errors. Electronically signed by: Casper Huber M.D. 03/11/2022 5:01 PM Discharge Plan Visit Data Chief Complaint: Respiratory Problems Stated Complaint: PNEMONIA ED Provider: Papo Law Discharge Problem: Pneumonia, Hypoxia Patient Disposition: Being Evaluated by Hospitalist Forms Stand Alone Forms: [facility] Prescriptions Prescriptions: No Action gabapentin 300 mg capsule 300 mg PO HS aspirin [Adult Low Dose Aspirin] 81 mg tablet,delayed release (DR/EC) 81 mg PO QAM bupropion HCl [Wellbutrin XL] 150 mg tablet extended release 24 hr 150 mg PO QAM eszopiclone [Lunesta] 3 mg tablet 3 mg PO HS ibuprofen 600 mg tablet 600 mg PO Q6H PRN (Reason: pain) rosuvastatin [Crestor] 40 mg tablet 40 mg PO PM hydroxychloroquine [Plaquenil] 200 mg tablet 200 mg PO QAM (DME) InPen (for Novolog or Fiasp) insulin pen See Dose Instructions .ROUTE .MEDSUPPLY Qty: 1 Rx Instructions: As directed lorazepam [Ativan] 0.5 mg tablet 0.5 mg PO DAILY PRN (Reason: Anxiety) nitroglycerin [Nitrostat] 0.4 mg tablet, sublingual 0.4 mg SL Q5M PRN (Reason: Chest Pain) omeprazole 40 mg capsule,delayed release(DR/EC) 40 mg PO Q OTHER DAY ondansetron 4 mg tablet,disintegrating 4 mg PO Q8H PRN (Reason: Nausea) ranitidine HCl [Zantac] 300 mg tablet 300 mg PO HS clonidine HCl 0.1 mg tablet 0.1 mg PO HS amitriptyline 10 mg tablet 30 mg PO HS insulin aspart U-100 [Novolog FlexPen U-100 Insulin] 100 unit/mL (3 mL) Insulin Pen 0 unit SUBCUT UD Rx Instructions: As per sliding scale Trulicity 0.75 mg/0.5 mL Pen Injector 0.75 mg SUBCUT WK Referrals Referrals: Gill Francisco MD [Primary Care Provider] -
[2022-03-11] MEDS ORDERED: POLYETHYLENE (MIRALAX) 17 GM PACK PO PRN (18:19)
[2022-03-11] MEDS ORDERED: ACETAMINOPHEN 325 MG TAB PO PRN (18:19)
[2022-03-11] MEDS ORDERED: GLUCOSE 40% GEL 15 GM TUBE PO PRN (18:19)
[2022-03-11] MEDS ORDERED: DEXTROSE 50% 50 ML SYRINGE IV PRN (18:19)
[2022-03-11] MEDS ORDERED: PHARMACY GLYCEMIC MGMT CONSULT PRN (18:19)
[2022-03-11] MEDS ORDERED: GLUCOSE 10 TAB/TUBE PO PRN (18:19)
[2022-03-11] MEDS ORDERED: ALUMINUM/MAGNESIUM SUSP 30 ML UDC PO PRN (18:19)
[2022-03-11] MEDS ORDERED: CARBOHYDRATES FOR HYPOGLYCEMIA PO PRN (18:19)
[2022-03-11] MEDS ORDERED: GLUCAGON FOR INJ 1 MG VIAL SQ PRN (18:19)
[2022-03-11] MEDS ORDERED: MAGNESIUM HYDROXIDE SUSP 30 ML UDC PO PRN (18:19)
--- NOTE | 2022-03-11 18:19 | History & Physical Report ---
Date of Service March 11, 2022 Assessment & Plan (1) Hypoxia: (2) Pneumonia: (3) Insulin dependent diabetes mellitus: (4) Anxiety disorder: (5) Hypercholesterolemia: (6) GERD (gastroesophageal reflux disease): Plan 51-year-old with hypoxia. Chest x-ray left-sided pneumonia. WBC 22.01. IV steroids, a IV antibiotics, sputum culture, Mucinex, chest x-ray in a.m. Other PMH includes insulin-dependent diabetic, HLD, anxiety. Pneumonia: Hypoxia: Tobacco use: -SpO2 85-86% on RA. No orthopnea. -1ppd cigarette smoker; medical marijuana vaping -CXR: Subtle ill-defined left midlung airspace opacities are suspicious for pneumonia. -WBC 22.01 -Lactate 0.7, procalcitonin negative -Cefepime IV; Blood cultures pending; adjust tx course pending results -IV steroids ordered; keep in mind closer glucose control with steroids -ISB, flutter valve ordered -Nebs 4 times daily and every 2 as needed -Mucinex p.o. for cough expectorant -CXR in AM -Bio fire pending; tested negative for COVID outpatient yesterday -Smoking cessation recommended; decline Nicotine patch for now -No formal diagnosis of COPD. Consider outpatient PFTs and pulmonary follow-up -Consider inpatient pulmonary consultation if no shown improvement Insulin-dependent diabetes mellitus type 2: Peripheral neuropathy: -Has Dexcom G6 transmitter -Discussed with patient and will monitor with FSBS ACHS and SSI here -Takes NovoLog SQ and Trulicity SQ (Last dose on Tuesday); hold while here -Last A1C 08/03/21: 7.4; recheck while here. -Takes gabapentin 100 mg p.o. nightly; continue -Glycemic pharmacy for assistance with Lantus while on steroids Anxiety disorder: -Takes Ativan 0.5 mg PO QID PRN; does not take it daily -Takes amitriptyline and Wellbutrin; continue -Has anxiety with anticipating nausea and vomiting Hypercholesterolemia: -Takes rosuvastatin; continue -Lipid panel 08/03/2021: TG 225, HDL 32, LDL 69 -Trend lipid panel in a.m. GERD: -Takes omeprazole and famotidine; continue Disposition: PCP: Dr. Martinez CODE STATUS: Full code VTE prophylaxis: Lovenox subcu A total of 87 minutes was spent with greater than 50% of that time personally reviewing all current laboratory work and diagnostic imaging studies obtained in the ED. Additionally, I was able to review the patients past medication reconciliation and history with direct visualization in the patients chart. Included in the time above, a portion of that time was spent assessing the patient while discussing and collaborating with specialists, if necessary, and making medical decisions regarding orders to be placed. All of the aforementioned completed while collaborating with Dr. Kirk for a full treatment plan. Please see her addendum for further details. History of Present Illness Chief Complaint: SOB Primary Care Provider: Gill Francisco MD Ms. Emmy Galindo is a 51-year-old female that presented to the [facility] with increasing shortness of breath that has been occurring over the past week. She stated that midweek last week she started to have a nonproductive cough and yesterday 03/10 she proceeded to her PCP office as her breathing became more labored and SPO2 that was monitored at home was 85 to 86%. On her way to her appointment her SPO2 level dropped to 81%. She reports shortness of breath at rest but no orthopnea. At the outpatient appointment she was given a Z-Aden and taper steroids for which she took 1 days worth without improvement. 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 Chest x-ray reveals left-sided pneumonia. Patient smokes cigarettes 1 PPD x20 years and also has a medical marijuana card for which she does vape. She does report that she does not use vaping daily however when she started to use it a few days ago is when her cough became worse. She denies any alcohol or other recreational drug use. Leukocytosis noted WBC 22.01. Mag 1.8, lactic acid 0.7, procalcitonin negative. Patient denies any sick contacts and tested negative for COVID yesterday. She is vaccinated against flu and COVID. In the ED she received IV steroids and 1 dose IV cefepime. Slight tachycardia heart rate 101. She does not wear supplemental oxygen at baseline. During my encounter she had 4 L nasal cannula on with SPO2 97%. Patient has never received a formal diagnosis of COPD however feel it would be beneficial to have outpatient PFTs and pulmonary consultation. Patient AOx4 and able to answer all questions without becoming dyspneic. Dorian whipple is having expiratory wheezes and sounds coarse and tight. Otherwise euvolemic on exam and reports she has been eating and drinking. Her sugars have been a little higher than normal at home. Patient receptive for admission for further evaluation and management. Please see A/P for further details. Allergies Allergy/AdvReac Type Severity Reaction Status Date / Time metformin AdvReac Unknown GI UPSET Verified 06/18/21 12:44 Home Medications Medication Instructions Recorded Confirmed Type aspirin 81 mg tablet,delayed 81 mg PO QAM 06/29/18 03/11/22 History release (Adult Low Dose Aspirin) bupropion HCl 150 mg 24 hr tablet, 150 mg PO QAM 06/29/18 03/11/22 History extended release (Wellbutrin XL) eszopiclone 3 mg tablet (Lunesta) 3 mg PO HS 06/29/18 03/11/22 History lorazepam 0.5 mg tablet (Ativan) 0.5 mg PO Q4 PRN Anxiety 06/29/18 03/11/22 History nitroglycerin 0.4 mg sublingual 0.4 mg sublingual Q5M PRN Chest 06/29/18 03/11/22 History tablet (Nitrostat) Pain rosuvastatin 40 mg tablet (Crestor) 40 mg PO QAM 06/29/18 03/11/22 History amitriptyline 10 mg tablet 30 mg PO HS 01/01/19 03/11/22 History insulin aspart U-100 100 unit/mL 7 unit subcut PC 01/01/19 03/11/22 History (3 mL) subcutaneous pen (Novolog FlexPen U-100 Insulin aspart) dulaglutide 0.75 mg/0.5 mL 0.75 mg subcut WK 06/18/21 03/11/22 History subcutaneous pen injector (Trulicity) azithromycin 250 mg tablet 250 mg PO UD 03/11/22 03/11/22 History dulaglutide 1.5 mg/0.5 mL 1.5 mg subcut WK 03/11/22 03/11/22 History subcutaneous pen injector (Trulicity) famotidine 40 mg tablet 40 mg PO QAM 03/11/22 03/11/22 History gabapentin 100 mg capsule 100 mg PO HS 03/11/22 03/11/22 History omeprazole 20 mg tablet,delayed 20 mg PO QAM 03/11/22 03/11/22 History release ondansetron 8 mg disintegrating 8 mg translingual Q8 PRN Nausea 03/11/22 03/11/22 History tablet And Vomiting prednisone 10 mg tablet 10 mg PO UD 03/11/22 03/11/22 History Past Med/Surg History Medical History Anxiety disorder Depressive disorder Diabetes Diverticulitis Fibroid, uterine GERD (gastroesophageal reflux disease) Hypercholesterolemia Osteoarthritis Surgical History History of bilateral carpal tunnel release History of hysterectomy History of recent maxillofacial surgery Social History Smoking Status: Never smoker Cigarettes Per Day: 1 ppd; Preferred Language: [place]er marital status: Current Living Situation: Spouse current occupational status: employed current occupation: [employer] 20 years Feels Safe at Home: Yes Review of Systems Review of Systems: Neuro: (-) Falls, trauma, slurred speech HEENT: (-) DE PAZ, dizziness, dysphagia, visual or auditory changes CV: (-) CP, palpitations, swelling Resp: (+) SOB (+) non productive cough GI: (-) appetite changes, N/V/D, bowel changes : (-) urinary changes Skin: (-) rashes Psych: (+) anxiety, depression Physical Exam Physical Exam: Neuro: AAOx4, PERRLA, no aphagia, memory changes, CNII-XII grossly intact HEENT: head normocephalic, moist mucus membranes CV: S1/S2, (-) M/G/R, (-) edema, cap refill < 3 seconds Resp: Lungs posterior wheezes, coarse, decreased in bases. On 4 LNC GI: Abdomen S/NT/ND, Ax4 bowel sounds, (-) CVA tenderness Musculoskeletal: 5/5 B/L UE strength, 5/5 B/L LE strength. No gait disturbance Skin: (-) rashes , (-) erythema. Psych: euthymic mood Results & Data Results & Data ([facility]) Vital Signs (Past 12 Hours) Vital Signs Temp Pulse Resp BP Pulse Ox O2 Del Method O2 Flow Rate 03/11/22 16:45 108 H 33 H 127/66 03/11/22 16:38 106 H 35 H 03/11/22 16:55 101 H 20 99 Nasal Cannula 4 03/11/22 15:29 92 Nasal Cannula 4 03/11/22 15:26 36.8 C 107 H 20 156/79 H 86 L Room Air Laboratory Results Short CBC 03/11/22 Range/Units 15:40 WBC 22.01 H (4.8-10.8) K/ul Hgb 16.0 (12.0-16.0) g/dl Hct 46.7 (37.0-47.0) % Plt Count 403 H (130-400) K/uL BMP 03/11/22 15:40 Sodium 138 Potassium 4.1 Chloride 101 Carbon Dioxide 28 BUN 14 Creatinine 0.89 Glucose 156 H Calcium 10.1 Liver Function 03/11/22 Range/Units 15:40 Total Bilirubin 0.4 (0.2-1.0) mg/dl AST 14 (13-39) U/L ALT 15 (7-52) U/L Alkaline Phosphatase 95 (34-104) U/L Albumin 4.4 (3.4-5.0) gm/dl Diagnostic Findings Chest X-Ray 03/11/22 16:13 XR chest 1V portable HISTORY: 51 years-old Female Sepsis acute chest pain COMPARISON: 01/01/2019 TECHNIQUE: AP view of the chest FINDINGS: Cardiomediastinal and hilar silhouettes are within normal limits. Subtle ill- defined patchy left midlung airspace opacities. No pneumothorax, large pleural effusion or overt pulmonary edema. Bones of the chest appear grossly intact. IMPRESSION: Subtle ill-defined left midlung airspace opacities are suspicious for pneumonia. ACT 112: Negative or not required by law. The above report was generated using voice recognition software. It may contain grammatical, syntax or spelling errors. Electronically signed by: Casper Huber M.D. 03/11/2022 5:01 PM Code Status & VTE Plan Code Status Full code in the event of cardiac or respiratory arrest VTE Prophylaxis Plan VTE Prophylaxis will be ordered: Yes Supervising Physician Co-Signing Physician Notes I have seen and examined the patient and have discussed the case with the provider above. I agree with the assessment and plan as stated. 51 yo smoker with pneumonia. Symptoms ongoing for 2 days, now hypoxic requiring 3-4 LPM of oxygen supplementation. NAD on physical exam and hse is mentating clearly. There is no increased work of breathing. Tachycardic with S1/2 heard. No edema. Euvolemic. Diagnostics reviewed and discussed with provider above. Agree with plan for antibiotics, steroids given wheezing along with bronchodilator therapy and pulmonary support efforts with things like mucinex. Ambulate early and often as tolerated. Smoking cessation strongly advised. Raegan, DO
[2022-03-11] MEDS: ALBUT/IPRATROP 3MG/0.5MG NEB 3 ML VIAL NEB SCH (20:09)
[2022-03-11] MEDS ORDERED: LANTUS PER UNIT CHARGE SQ ONE (22:00)
[2022-03-11] MEDS: INSULIN ASPART PER UNIT SC SCH (22:02)
[2022-03-11] MEDS: AMITRIPTYLINE HCL 10 MG TAB PO SCH (23:01)
[2022-03-11] MEDS: GABAPENTIN 100 MG CAP PO SCH (23:02)
[2022-03-11] MEDS: guaiFENesin 600 MG TABCR PO SCH (23:03)
[2022-03-11] MEDS: LORazepam 0.5 MG TAB PO PRN (23:03)
[2022-03-11] MEDS: CEFEPIME 2,000 MG in SYRINGE 0 ML IV SCH (23:05)
[2022-03-11] MEDS: ESZOPICLONE 1 MG TAB PO SCH (23:19)
[2022-03-11 23:40] LABS: Appearance Urine Clear (Clear); Bilirubin Urine Negative (Negative); Blood Urine Negative (Negative); Color Urine Yellow; Glucose Urine UA 3+ (Negative); Ketones Urine Negative (Negative); Leukocyte Esterase Urine Negative (Negative); Nitrite Urine Negative (Negative); Protein Urine Negative (Negative); Specific Gravity Urine 1.012 (1.000-1.030); Urobilinogen Urine Negative (Negative)
[2022-03-12] MEDS: INSULIN ASPART PER UNIT SC SCH ×6 (00:07→20:59)
[2022-03-12 01:10] LABS: Adenovirus PCR Not Detected (NotDetected); Bordetella parapertussis PCR Not Detected (NotDetected); Bordetella pertussis PCR Not Detected (NotDetected); Chlamydia pneumoniae PCR Not Detected (NotDetected); Coronavirus 229E PCR Not Detected (NotDetected); Coronavirus CoV-2 (COVID19)PCR Not Detected (NotDetected); Coronavirus HKU1 PCR Not Detected (NotDetected); Coronavirus NL63 PCR Not Detected (NotDetected); Coronavirus OC43PCR Not Detected (NotDetected); Human Metapneumovirus PCR Not Detected (NotDetected); Influenza A PCR Not Detected (NotDetected); Influenza B PCR Not Detected (NotDetected); Mycoplasma pneumoniae PCR Not Detected (NotDetected); Parainfluenza Virus 1 PCR Not Detected (NotDetected); Parainfluenza Virus 2 PCR Not Detected (NotDetected); Parainfluenza Virus 3 PCR Not Detected (NotDetected); Parainfluenza Virus 4 PCR Not Detected (NotDetected); Respiratory Syncytial VirusPCR Not Detected (NotDetected); Rhinovirus/Enterovirus PCR Not Detected (NotDetected)
[2022-03-12] MEDS ORDERED: FLUARIX QUADRIVALENT 0.5 ML SYR IM ONE (02:15)
[2022-03-12] MEDS ORDERED: methylPREDNISolone 30 MG in SYRINGE 0 ML IV SCH (05:00)
[2022-03-12] MEDS: ALBUT/IPRATROP 3MG/0.5MG NEB 3 ML VIAL NEB SCH ×4 (07:23→19:14)
[2022-03-12] MEDS: buPROPion XL 150 MG TABCR PO SCH (07:50)
[2022-03-12] MEDS: FAMOTIDINE 40 MG TABLET PO SCH (07:50)
[2022-03-12] MEDS: PANTOprazole 40 MG TAB PO SCH (07:50)
[2022-03-12] MEDS: ROSUVASTATIN CALCIUM 20 MG TAB PO SCH (07:50)
[2022-03-12] MEDS: ASPIRIN 81 MG ECTAB PO SCH (07:51)
[2022-03-12] MEDS: guaiFENesin 600 MG TABCR PO SCH ×2 (07:51→20:50)
[2022-03-12] MEDS: ENOXAPARIN INJ 30 MG/0.3 ML SYR SQ SCH (07:57)
[2022-03-12] MEDS: CEFEPIME 2,000 MG in SYRINGE 0 ML IV SCH (07:57)
[2022-03-12 08:06] LABS: Hematocrit (blood only) 40.1 % (37.0-47.0); Hemoglobin 13.5 g/dl (12.0-16.0); Mean Corpuscular Hemoglobin 30.5 pg (25.0-34.0); Mean Corpuscular Hgb Conc 33.7 g/dL (32.0-36.0); Mean Corpuscular Volume 90.7 fL (80.0-100.0); Mean Platelet Volume 9.2 fL (9.4-12.4); Platelet Count 420 K/uL (130-400); RDW Coefficient of Variation 13.2 % (11.5-14.5); RDW Standard Deviation 44.5 fL (36.4-46.3); Red Blood Count 4.42 M/uL (4.20-5.40); White Blood Count 20.04 K/ul (4.8-10.8)
--- NOTE | 2022-03-12 08:19 | XRay Report ---
XR chest 1V portable HISTORY: hypoxia COMPARISON: Chest 03/11/2022. FINDINGS: No pneumothorax. No pleural effusions. The heart is normal in size. Ill-defined left midlun g zone patchy airspace opacities have improved. The right lung appears clear. No evidence for pulmona ry edema. IMPRESSION: Slight improvement in the left midlung zone patchy air space opacities. ACT 112: Negative or not required by law. Electronically signed by: Wilton Duckworth M.D. 03/12/2022 8:18 AM
[2022-03-12] MEDS: DOXYCYCLINE HYCLATE 100 MG CAP PO SCH ×2 (08:50→20:49)
[2022-03-12] MEDS: LANTUS PER UNIT CHARGE SQ SCH ×2 (08:50→20:58)
[2022-03-12] MEDS ORDERED: OPTIRAY 320 500ml IV ONE (10:26)
[2022-03-12 10:51] LABS: Estimated Average Glucose 160 mg/dl; Hemoglobin A1C 7.2 % (4.5-5.6)
--- NOTE | 2022-03-12 11:24 | Electrocardiogram Report ---
Test Reason : Blood Pressure : / mmHG Vent. Rate : 110 BPM Atrial Rate : 110 BPM P-R Int : 120 ms QRS Dur : 080 ms QT Int : 316 ms P-R-T Axes : 077 015 070 degrees QTc Int : 427 ms Poor data quality, interpretation may be adversely affected Sinus tachycardia Poor R wave progression, consider anterior TN vs. lead placement vs. LVH Abnormal ECG When compared with ECG of 01-JAN-2019 15:20, Nonspecific T wave abnormality, worse in Inferior leads Nonspecific T wave abnormality now evident in Lateral leads QT has shortened Confirmed by Eric Sevilla ([id number]) on 03/12/2022 11:24:21 AM Referred By: Confirmed By:Eric Sevilla
--- NOTE | 2022-03-12 12:02 | CT Scan Report ---
CT angio chest PE protocol CT DOSE: 234.01 mGy.cm HISTORY: 51 years-old Female with Rule out PE. Acute shortness of breath TECHNIQUE: Multiple CTA images of the chest were obtained after the intravenous administration of 118 ml Optiray. Coronal and sagittal MIPS were obtained from the axial data set and were submitted for review. All measurements were obtained according to NASCET criteria. A dose lowering technique was u tilized adhering to the principles of ALARA. COMPARISON: Chest radiograph of same day FINDINGS: CTA: Heart is normal in size without pericardial effusion. Unremarkable thoracic aorta. Patency of the susan ged great vessels. No central pulmonary emboli identified. Suboptimal evaluation of the segmental and subsegmental branches secondary to respiratory motion artifact. CT CHEST: No thyroid nodule identified. Borderline enlarged mediastinal lymph nodes measure up to 10 mm in the subcarinal distribution, likely physiologic. No pneumothorax or pleural effusion. 6 mm subpleural nodule of the right lung apex on image 218 serie s 4 is likely benign. Subsegmental consolidation of the lingula and medial segment right middle lobe. Patchy multifocal multilobar groundglass densities. 3 mm subpleural solid nodule of the right lower lobe on image 127. Subcentimeter calcified granuloma of the basal left lower lobe. Central airways ar e patent. No acute process of the imaged upper abdomen. Indeterminate 7 mm hypodense focus of the central liver on image 22 series 2. Focal fatty infiltration of the left hepatic lobe adjacent to the falciform li gament. No acute fracture identified. IMPRESSION: 1. No pulmonary emboli are identified. 2. Patchy bilateral groundglass densities are suggestive of infectious or inflammatory pneumonitis horn ch as viral pneumonia. Mild subsegmental consolidation of the right middle lobe and lingula. 3. There are two low suspicion solid pulmonary nodules of the right lung measuring up to 5 mm, likely benign. 4. Mild mediastinal lymphadenopathy, likely reactive. Please refer to below summary of Fleischner criteria recommendations for follow-up of incidental CT n odules (Sarabjit Fields, Guidelines for management of small pulmonary nodules detected on CT scans: A sta tement from the Fleischner Society, Radiology 237: [phone].) SOLID NODULES Multiple nodules size: <6 mm * Low risk patients: no routine follow-up * high risk patients: optional CT at 12 months Note: newly detected indeterminate nodule in persons 35 years of age or older. * Low risk patients: minimal or absent history of smoking and/or other known risk factors * high risk patients: history of smoking or of other known risk factors (e.g. first degree relative with lung cancer, or exposure to asbestos, radon, uranium) * if a nodule up to 8 mm is partly solid or is ground glass further follow-up is required after 24 m onths to exclude possible slow growing adenocarcinoma (FAY) ACT 112: Negative or not required by law. The above report was generated using voice recognition software. It may contain grammatical, syntax o r spelling errors. Electronically signed by: Casper Huber M.D. 03/12/2022 12:01 PM
--- NOTE | 2022-03-12 12:03 | Electrocardiogram Report ---
Test Reason : Blood Pressure : / mmHG Vent. Rate : 090 BPM Atrial Rate : 090 BPM P-R Int : 146 ms QRS Dur : 076 ms QT Int : 406 ms P-R-T Axes : 077 026 068 degrees QTc Int : 496 ms Normal sinus rhythm Poor R wave progression, consider anterior RI vs. lead placement vs. LVH Nonspecific ST and T wave abnormality Abnormal ECG When compared with ECG of 11-MAR-2022 15:34, (unconfirmed) QT has lengthened Confirmed by Eric Sevilla ([id number]) on 03/12/2022 12:02:43 PM Referred By: REFERRED SELF Confirmed By:Eric Sevilla
--- NOTE | 2022-03-12 12:25 | Hospitalist Progress Note ---
Date of Service March 12, 2022 Assessment & Plan (1) Hypoxia: (2) Pneumonia: (3) Insulin dependent diabetes mellitus: (4) Anxiety disorder: (5) Hypercholesterolemia: (6) GERD (gastroesophageal reflux disease): Plan 51-year-old with hypoxia. Chest x-ray left-sided pneumonia. WBC 22.01. IV steroids, a IV antibiotics, sputum culture, Mucinex, chest x-ray in a.m. Other PMH includes insulin-dependent diabetic, HLD, anxiety. Pneumonia: Hypoxia: Tobacco use: -SpO2 85-86% on RA. -1ppd cigarette smoker; medical marijuana vaping -CXR: Subtle ill-defined left midlung airspace opacities are suspicious for pneumonia. -WBC 22.01 > 20. -Lactate 0.7, procalcitonin negative Respiratory bio fire negative CTA chest done; no PE; bilateral patchy groundglass opacities seen suggestive of infectious/inflammatory pneumonia. Mild subsegmental consolidation of right middle lobe and lingula. Plan; Continue supplemental oxygen as needed to keep saturation above 92% Continue on duo nebs, IV steroids and antibiotic Mucinex -ISB, flutter valve ordered -Nebs 4 times daily and every 2 as needed -Smoking cessation recommended. Insulin-dependent diabetes mellitus type 2: Peripheral neuropathy: -Has Dexcom G6 transmitter -Discussed with patient and will monitor with FSBS ACHS and SSI here -Takes NovoLog SQ and Trulicity SQ (Last dose on Tuesday); hold while here -Last A1C 08/03/21: 7.4; recheck while here. -Takes gabapentin 100 mg p.o. nightly; continue -Glycemic pharmacy for assistance with Lantus while on steroids Anxiety disorder: -Takes Ativan 0.5 mg PO QID PRN; does not take it daily -Takes amitriptyline and Wellbutrin; continue -Has anxiety with anticipating nausea and vomiting Hypercholesterolemia: -Takes rosuvastatin; continue -Lipid panel 08/03/2021: TG 225, HDL 32, LDL 69 GERD: -Takes omeprazole and famotidine; continue Disposition: PCP: Dr. Martinez CODE STATUS: Full code VTE prophylaxis: Lovenox subcu Admission and Anticipated Discharge Date Admission Date: March 11, 2022 Subjective Patient seen and examined at bedside. She reports that her shortness of breath has improved compared to yesterday. Denies any fever, chills, chest pain, abdominal pain or urinary symptoms. Review of Systems Review of Systems: All systems reviewed & are unremarkable except as noted in Subjective Physical Exam Physical Exam: Constitutional: WD/WN, vitals as above, NAD, sitting up in bed, pleasant, conversing easily Respiratory: Occasional wheeze heard. Cardiovascular: RRR, no murmur, no edema Vessels: no JVD or carotid bruit Chest: normal inspection of chest Abdomen: normal bowel sounds, soft, nontender, no hepatosplenomegaly Musculoskeletal: no cyanosis or clubbing, extremities motor strength 5/5 Skin: no rashes, warm and dry normal turgor Neurologic: PERRL, EOMI, accommodation nl, no face palsy, no dysarthria CN's II- XI intact bilaterally and moves all extremities Psychiatric: A+Ox3, euthymic affect Lymphatic: no cervical or axillary lymphadenopathy : deferred Results & Data Results & Data ([facility]) Vital Signs (Past 12 Hours) Vital Signs Temp Pulse Pulse Resp BP Pulse Ox O2 Del Method 03/12/22 11:23 100 H 18 126/66 96 Nasal Cannula 03/12/22 11:06 107 H 20 90 Nasal Cannula 03/12/22 10:11 Nasal Cannula 03/12/22 07:24 96 H 03/12/22 07:23 96 H 18 93 Nasal Cannula 03/12/22 04:00 36.7 C 86 18 114/66 95 Nasal Cannula 03/12/22 01:38 101 H 03/12/22 01:28 Nasal Cannula 03/12/22 01:28 36.5 C 103 H 18 146/72 H 91 Nasal Cannula O2 Flow Rate 03/12/22 11:23 3 03/12/22 11:06 3 03/12/22 10:11 2 03/12/22 07:24 03/12/22 07:23 3 03/12/22 04:00 3 03/12/22 01:38 03/12/22 01:28 3 03/12/22 01:28 3 Laboratory Results Laboratory Results WBC 20.04 K/ul (4.8-10.8) H 03/12/22 07:15 RBC 4.42 M/uL (4.20-5.40) 03/12/22 07:15 Hgb 13.5 g/dl (12.0-16.0) 03/12/22 07:15 Hct 40.1 % (37.0-47.0) 03/12/22 07:15 MCV 90.7 fL (80.0-100.0) 03/12/22 07:15 MCH 30.5 pg (25.0-34.0) 03/12/22 07:15 MCHC 33.7 g/dL (32.0-36.0) 03/12/22 07:15 RDW Std Deviation 44.5 fL (36.4-46.3) 03/12/22 07:15 RDW Coeff of Narcisa 13.2 % (11.5-14.5) 03/12/22 07:15 Plt Count 420 K/uL (130-400) H 03/12/22 07:15 MPV 9.2 fL (9.4-12.4) L 03/12/22 07:15 Immature Gran % (Auto) 0.5 % 03/11/22 15:40 Neut % (Auto) 78.6 % 03/11/22 15:40 Lymph % (Auto) 12.9 % 03/11/22 15:40 [place] % (Auto) 6.6 % 03/11/22 15:40 Eos % (Auto) 0.9 % 03/11/22 15:40 Baso % (Auto) 0.5 % 03/11/22 15:40 Neut # (Auto) 17.31 K/uL (1.40-6.50) H 03/11/22 15:40 Lymph # (Auto) 2.83 K/uL (1.2-3.4) 03/11/22 15:40 [place] # (Auto) 1.46 K/uL (0.11-0.59) H 03/11/22 15:40 Eos # (Auto) 0.19 K/uL (0-0.50) 03/11/22 15:40 Baso # (Auto) 0.10 K/uL (0-0.2) 03/11/22 15:40 Immature Gran # (Auto) 0.12 K/uL (0.01-0.20) 03/11/22 15:40 PT 10.9 Seconds (9.0-12.0) 03/11/22 15:40 INR 1.0 (0.9-1.1) 03/11/22 15:40 APTT 31.3 Seconds (21.0-31.0) H 03/11/22 15:40 PTT Ratio 1.1 03/11/22 15:40 Sodium 138 mmol/L (136-145) 03/11/22 15:40 Potassium 4.1 mmol/L (3.5-5.1) 03/11/22 15:40 Chloride 101 mmol/L (98-107) 03/11/22 15:40 Carbon Dioxide 28 mmol/L (21-32) 03/11/22 15:40 Anion Gap 9 (3-11) 03/11/22 15:40 BUN 14 mg/dl (6-23) 03/11/22 15:40 Creatinine 0.89 mg/dl (0.6-1.2) 03/11/22 15:40 Est Cr Clr Drug Dosing Not Reportable 03/11/22 15:40 Est GFR ( Amer) 85.8 ml/min 03/11/22 15:40 Est GFR (Non-Af Amer) 74.0 ml/min 03/11/22 15:40 BUN/Creatinine Ratio 15.7 (10-20) 03/11/22 15:40 Glucose 156 mg/dl (70-99(Fasting)) H 03/11/22 15:40 POC Glucose 208 mg/dl (70-99) H 03/12/22 11:29 Estimat Average Glucose 160 mg/dl 03/12/22 07:15 Hemoglobin A1c 7.2 % (4.5-5.6) H 03/12/22 07:15 Lactate 0.7 mmol/L (0.4-2.0) 03/11/22 16:41 Calcium 10.1 mg/dl (8.5-10.1) 03/11/22 15:40 Magnesium 1.8 mg/dl (1.7-2.4) 03/11/22 15:40 Total Bilirubin 0.4 mg/dl (0.2-1.0) 03/11/22 15:40 AST 14 U/L (13-39) 03/11/22 15:40 ALT 15 U/L (7-52) 03/11/22 15:40 Alkaline Phosphatase 95 U/L (34-104) 03/11/22 15:40 Troponin I High Sens 8.3 pg/ml (0-14) 03/11/22 15:40 Troponin I High Sens Cancelled 03/11/22 15:40 Total Protein 7.8 gm/dl (6.0-8.3) 03/11/22 15:40 Albumin 4.4 gm/dl (3.4-5.0) 03/11/22 15:40 Globulin 3.4 gm/dl (2.5-4.0) 03/11/22 15:40 Albumin/Globulin Ratio 1.3 (0.9-2) 03/11/22 15:40 Procalcitonin 0.08 ng/ml (0-0.5) 03/11/22 15:40 Urine Color Yellow 03/11/22 23:09 Urine Appearance Clear (Clear) 03/11/22 23:09 Urine pH 7.0 (4.5-7.5) 03/11/22 23:09 Ur Specific [place] 1.012 (1.000-1.030) 03/11/22 23:09 Urine Protein Negative (Negative) 03/11/22 23:09 Urine Glucose (UA) 3+ (Negative) H 03/11/22 23:09 Urine Ketones Negative (Negative) 03/11/22 23:09 Urine Blood Negative (Negative) 03/11/22 23:09 Urine Nitrite Negative (Negative) 03/11/22 23:09 Urine Bilirubin Negative (Negative) 03/11/22 23:09 Urine Urobilinogen Negative (Negative) 03/11/22 23:09 Ur Leukocyte Esterase Negative (Negative) 03/11/22 23:09 Adenovirus (PCR) Not Detected (NotDetected) 03/12/22 00:10 B. pertussis DNA (PCR) Not Detected (NotDetected) 03/12/22 00:10 B.parapertussis DNA PCR Not Detected (NotDetected) 03/12/22 00:10 C. pneumoniae DNA (PCR) Not Detected (NotDetected) 03/12/22 00:10 Coronavirus OC43 (PCR) Not Detected (NotDetected) 03/12/22 00:10 Coronavirus HKU1 (PCR) Not Detected (NotDetected) 03/12/22 00:10 Coronavirus 229E (PCR) Not Detected (NotDetected) 03/12/22 00:10 SARS-CoV-2 (PCR) Not Detected (NotDetected) 03/12/22 00:10 Coronavirus NL63 (PCR) Not Detected (NotDetected) 03/12/22 00:10 Human Metapneumovir PCR Not Detected (NotDetected) 03/12/22 00:10 Influenza Type A (PCR) Not Detected (NotDetected) 03/12/22 00:10 Influenza Type B (PCR) Not Detected (NotDetected) 03/12/22 00:10 M. pneumoniae (PCR) Not Detected (NotDetected) 03/12/22 00:10 Parainfluenza 1 (PCR) Not Detected (NotDetected) 03/12/22 00:10 Parainfluenza 2 (PCR) Not Detected (NotDetected) 03/12/22 00:10 Parainfluenza 3 (PCR) Not Detected (NotDetected) 03/12/22 00:10 Parainfluenza 4 (PCR) Not Detected (NotDetected) 03/12/22 00:10 RSV (PCR) Not Detected (NotDetected) 03/12/22 00:10 Entero/Rhino (PCR) Not Detected (NotDetected) 03/12/22 00:10 SARS-CoV-2, RNA, NAAT NEGATIVE (NEGATIVE) 03/11/22 18:16 Impressions Chest X-Ray 03/12/22 08:00 XR chest 1V portable HISTORY: hypoxia COMPARISON: Chest 03/11/2022. FINDINGS: No pneumothorax. No pleural effusions. The heart is normal in size. Ill-defined left midlung zone patchy airspace opacities have improved. The right lung appears clear. No evidence for pulmonary edema. IMPRESSION: Slight improvement in the left midlung zone patchy air space opacities. ACT 112: Negative or not required by law. Electronically signed by: Wilton Duckworth M.D. 03/12/2022 8:18 AM Chest CTA 03/12/22 09:02 CT angio chest PE protocol CT DOSE: 234.01 mGy.cm HISTORY: 51 years-old Female with Rule out PE. Acute shortness of breath TECHNIQUE: Multiple CTA images of the chest were obtained after the intravenous administration of 118 ml Optiray. Coronal and sagittal MIPS were obtained from the axial data set and were submitted for review. All measurements were obtained according to NASCET criteria. A dose lowering technique was utilized adhering to the principles of ALARA. COMPARISON: Chest radiograph of same day FINDINGS: CTA: Heart is normal in size without pericardial effusion. Unremarkable thoracic aorta. Patency of the imaged great vessels. No central pulmonary emboli identified. Suboptimal evaluation of the segmental and subsegmental branches secondary to respiratory motion artifact. CT CHEST: No thyroid nodule identified. Borderline enlarged mediastinal lymph nodes measure up to 10 mm in the subcarinal distribution, likely physiologic. No pneumothorax or pleural effusion. 6 mm subpleural nodule of the right lung apex on image 218 series 4 is likely benign. Subsegmental consolidation of the lingula and medial segment right middle lobe. Patchy multifocal multilobar groundglass densities. 3 mm subpleural solid nodule of the right lower lobe on image 127. Subcentimeter calcified granuloma of the basal left lower lobe. Central airways are patent. No acute process of the imaged upper abdomen. Indeterminate 7 mm hypodense focus of the central liver on image 22 series 2. Focal fatty infiltration of the left hepatic lobe adjacent to the falciform ligament. No acute fracture identified. IMPRESSION: 1. No pulmonary emboli are identified. 2. Patchy bilateral groundglass densities are suggestive of infectious or inflammatory pneumonitis such as viral pneumonia. Mild subsegmental consolidation of the right middle lobe and lingula. 3. There are two low suspicion solid pulmonary nodules of the right lung measuring up to 5 mm, likely benign. 4. Mild mediastinal lymphadenopathy, likely reactive. Please refer to below summary of Fleischner criteria recommendations for follow- up of incidental CT nodules (Sarabjit Fields, Guidelines for management of small pulmonary nodules detected on CT scans: A statement from the Fleischner Society, Radiology 237: [phone].) SOLID NODULES Multiple nodules size: <6 mm * Low risk patients: no routine follow-up * high risk patients: optional CT at 12 months Note: newly detected indeterminate nodule in persons 35 years of age or older. * Low risk patients: minimal or absent history of smoking and/or other known risk factors * high risk patients: history of smoking or of other known risk factors (e.g. first degree relative with lung cancer, or exposure to asbestos, radon, uranium) * if a nodule up to 8 mm is partly solid or is ground glass further follow-up is required after 24 months to exclude possible slow growing adenocarcinoma (FAY) ACT 112: Negative or not required by law. The above report was generated using voice recognition software. It may contain grammatical, syntax or spelling errors. Electronically signed by: Casper Huber M.D. 03/12/2022 12:01 PM
[2022-03-12 12:40] LABS: Anion Gap 7 (3-11); Blood Urea Nitrogen 17 mg/dl (6-23); Calcium 9.9 mg/dl (8.5-10.1); Carbon Dioxide 27 mmol/L (21-32); Chloride 105 mmol/L (98-107); Chol HDL Ratio 3.3 (0-5); Cholesterol 138 mg/dl (0-200); Creatinine Clr Calc Pharmacy 67.6 ml/min; Est GFR (African American) 96.1 ml/min; Est GFR (Non-African American) 82.9 ml/min; Glucose 182 mg/dl (70-99(Fasting)); HDL Cholesterol 42 mg/dl; LDL Cholesterol Calculated 74 mg/dl; Sodium 139 mmol/L (136-145); Triglycerides 108 mg/dl (0-150); VLDL Cholesterol 22 mg/dl (0-30)
--- NOTE | 2022-03-12 13:44 | Pharmacy Report ---
Pharmacy Glycemic Short Note 2 - Date of Service March 12, 2022 - Glycemic Short BSG Results (Last 24 hours): 03/11/22 03/11/22 03/11/22 15:40 21:30 23:23 Glucose 156 H POC Glucose 339 H* 263 H 03/12/22 03/12/22 03/12/22 04:42 07:15 07:35 Glucose 182 H POC Glucose 207 H 182 H 03/12/22 11:29 Glucose POC Glucose 208 H OUTPATIENT ANTIDIABETIC REGIMEN: * Trulicity 2.25mg SQ weekly * Novolog 7 units SQ TID with meals * HbA1c: 7.2% (03/12/22) ASSESSMENT: * Ms Oh is a 51yo diabetic F admitted with hypoxia/pneumonia. * Pt is currently receiving high-dose IV steroids (SoluMedrol 40mg IV q12h), which are expected to contribute to hyperglycemia. * Pt was initiated on SQ basal/bolus insulin on admission. * Will continue to titrate until adequate glycemic control is achieved. Expect that patient's insulin requirements will decrease as steroids taper or stop. PLAN FOR INPATIENT GLYCEMIC CONTROL: * Basal insulin * Lantus 10 units SQ BID * Bolus insulin * NovoLog per scale ACHS or Q6hrs while NPO * Goal Range: Low 110 mg/dL - High 140 mg/dL * Correction Factor: 30 mg/dL/unit * Nutritional / Prandial insulin per carb ratio of 1 unit per 10 grams CHO consumed
[2022-03-12] MEDS: cefTRIAXone SODIUM 1,000 MG in DEXTROSE 5% AD-VAN 50 ML IV SCH (15:37)
[2022-03-12] MEDS: methylPREDNISolone 40 MG in SYRINGE 0 ML IV SCH (17:08)
[2022-03-12] MEDS: LORazepam 0.5 MG TAB PO PRN (20:49)
[2022-03-12] MEDS: ONDANSETRON INJ 2 MG/ML 2 ML VIAL IV PRN (20:49)
[2022-03-12] MEDS: GABAPENTIN 100 MG CAP PO SCH (20:50)
[2022-03-12] MEDS: AMITRIPTYLINE HCL 10 MG TAB PO SCH (20:51)
[2022-03-12] MEDS: ESZOPICLONE 1 MG TAB PO SCH (21:03)
[2022-03-13] MEDS: methylPREDNISolone 40 MG in SYRINGE 0 ML IV SCH ×2 (05:19→17:18)
[2022-03-13] MEDS: ALBUT/IPRATROP 3MG/0.5MG NEB 3 ML VIAL NEB SCH ×4 (07:28→19:35)
[2022-03-13] MEDS: buPROPion XL 150 MG TABCR PO SCH (07:37)
[2022-03-13] MEDS: ASPIRIN 81 MG ECTAB PO SCH (07:38)
[2022-03-13] MEDS: FAMOTIDINE 40 MG TABLET PO SCH (07:38)
[2022-03-13] MEDS: ROSUVASTATIN CALCIUM 20 MG TAB PO SCH (07:38)
[2022-03-13] MEDS: guaiFENesin 600 MG TABCR PO SCH (07:38)
[2022-03-13] MEDS: DOXYCYCLINE HYCLATE 100 MG CAP PO SCH ×2 (07:38→21:01)
[2022-03-13] MEDS: ENOXAPARIN INJ 30 MG/0.3 ML SYR SQ SCH (07:39)
[2022-03-13] MEDS: PANTOprazole 40 MG TAB PO SCH (07:39)
[2022-03-13 08:05] LABS: Albumin Globulin Ratio 1.5 (0.9-2); Albumin Level 4.1 gm/dl (3.4-5.0); BUN Creatinine Ratio 24.7 (10-20); Bilirubin,Total 0.3 mg/dl (0.2-1.0); Creatinine Clr Calc Pharmacy 64.7 ml/min; Est GFR (African American) 90.7 ml/min; Est GFR (Non-African American) 78.2 ml/min; Globulin 2.8 gm/dl (2.5-4.0); Potassium 4.4 mmol/L (3.5-5.1); Total Protein 6.9 gm/dl (6.0-8.3)
[2022-03-13 08:14] LABS: Basophils # (auto) 0.03 K/uL (0-0.2); Basophils % (auto) 0.1 %; Eosinophils # (auto) 1.25 K/uL (0-0.50); Eosinophils % (auto) 6.2 %; Hematocrit (blood only) 41.8 % (37.0-47.0); Hemoglobin 14.3 g/dl (12.0-16.0); Immature Granulocytes # (auto) 0.17 K/uL (0.01-0.20); Immature Granulocytes % (auto) 0.8 %; Lymphocytes # (auto) 1.99 K/uL (1.2-3.4); Lymphocytes % (auto) 9.8 %; Mean Corpuscular Hemoglobin 30.8 pg (25.0-34.0); Mean Corpuscular Hgb Conc 34.2 g/dL (32.0-36.0); Mean Corpuscular Volume 89.9 fL (80.0-100.0); Mean Platelet Volume 8.9 fL (9.4-12.4); Monocytes # (auto) 1.08 K/uL (0.11-0.59); Monocytes % (auto) 5.3 %; Neutrophils % (auto) 77.8 %; Platelet Count 414 K/uL (130-400); RBC Morphology Unremarkable; RDW Coefficient of Variation 13.3 % (11.5-14.5); Red Blood Count 4.65 M/uL (4.20-5.40); White Blood Count 20.22 K/ul (4.8-10.8)
[2022-03-13] MEDS ORDERED: LANTUS PER UNIT CHARGE SQ SCH ×2 (09:00→21:00)
[2022-03-13] MEDS: INSULIN ASPART PER UNIT SC SCH ×4 (09:17→21:09)
--- NOTE | 2022-03-13 11:10 | Hospitalist Progress Note ---
Date of Service March 13, 2022 Assessment & Plan (1) Hypoxia: (2) Pneumonia: (3) Insulin dependent diabetes mellitus: (4) Anxiety disorder: (5) Hypercholesterolemia: (6) GERD (gastroesophageal reflux disease): Plan 51-year-old with hypoxia. Chest x-ray left-sided pneumonia. WBC 22.01. IV steroids, a IV antibiotics, sputum culture, Mucinex, chest x-ray in a.m. Other PMH includes insulin-dependent diabetic, HLD, anxiety. Pneumonia: Hypoxia: Tobacco use: -SpO2 85-86% on RA. -1ppd cigarette smoker; medical marijuana vaping -CXR: Subtle ill-defined left midlung airspace opacities are suspicious for pneumonia. -WBC 22.01 > 20. -Lactate 0.7, procalcitonin negative Respiratory bio fire negative CTA chest done; no PE; bilateral patchy groundglass opacities seen suggestive of infectious/inflammatory pneumonia. Mild subsegmental consolidation of right middle lobe and lingula. Plan; Continue supplemental oxygen as needed to keep saturation above 92% Continue on duo nebs, IV steroids and antibiotic Mucinex -ISB, flutter valve ordered -Nebs 4 times daily and every 2 as needed -Smoking cessation recommended. Insulin-dependent diabetes mellitus type 2: Peripheral neuropathy: -Has Dexcom G6 transmitter -Discussed with patient and will monitor with FSBS ACHS and SSI here -Takes NovoLog SQ and Trulicity SQ (Last dose on Tuesday); hold while here -Last A1C 08/03/21: 7.4; recheck while here. -Takes gabapentin 100 mg p.o. nightly; continue -Glycemic pharmacy for assistance with Lantus while on steroids Anxiety disorder: -Takes Ativan 0.5 mg PO QID PRN; does not take it daily -Takes amitriptyline and Wellbutrin; continue -Has anxiety with anticipating nausea and vomiting Hypercholesterolemia: -Takes rosuvastatin; continue -Lipid panel 08/03/2021: TG 225, HDL 32, LDL 69 GERD: -Takes omeprazole and famotidine; continue Disposition: PCP: Dr. Martinez CODE STATUS: Full code VTE prophylaxis: Lovenox subcu Dispositionshe is requiring supplemental oxygen at 2 to 3 L to keep her saturation over 92%; continue current treatment with IV steroids, IV antibiotics and [id number] duo nebs. Admission and Anticipated Discharge Date Admission Date: March 11, 2022 Subjective Patient seen and examined at bedside. She reports that she is feeling a little better. Reports improvement in shortness of breath. Review of Systems Review of Systems: All systems reviewed & are unremarkable except as noted in Subjective Physical Exam Physical Exam: Constitutional: WD/WN, vitals as above, NAD, sitting up in bed, pleasant, conversing easily Respiratory: Occasional wheeze heard. Cardiovascular: RRR, no murmur, no edema Vessels: no JVD or carotid bruit Chest: normal inspection of chest Abdomen: normal bowel sounds, soft, nontender, no hepatosplenomegaly Musculoskeletal: no cyanosis or clubbing, extremities motor strength 5/5 Skin: no rashes, warm and dry normal turgor Neurologic: PERRL, EOMI, accommodation nl, no face palsy, no dysarthria CN's II- XI intact bilaterally and moves all extremities Psychiatric: A+Ox3, euthymic affect Lymphatic: no cervical or axillary lymphadenopathy : deferred Results & Data Results & Data ([facility]) Vital Signs (Past 12 Hours) Vital Signs Temp Pulse Pulse Resp BP BP Pulse Ox 03/13/22 10:59 80 18 94 03/13/22 09:30 36.6 C 99 H 20 113/68 94 03/13/22 07:40 36.5 C 96 H 22 138/69 93 03/13/22 07:29 100 H 18 92 03/13/22 07:15 79 03/13/22 03:00 36.6 C 94 H 18 96/59 L 96 03/12/22 23:27 101 H O2 Del Method O2 Flow Rate 03/13/22 10:59 Nasal Cannula 3 03/13/22 09:30 Nasal Cannula 2 03/13/22 07:40 Nasal Cannula 2 03/13/22 07:29 Nasal Cannula 3 03/13/22 07:15 03/13/22 03:00 Nasal Cannula 2 03/12/22 23:27
[2022-03-13] MEDS: guaiFENesin/DEXTROM SYRUP 200MG/20MG 10ML UDC PO PRN ×2 (12:26→21:08)
--- NOTE | 2022-03-13 14:41 | Pharmacy Report ---
Pharmacy Glycemic Short Note 2 - Date of Service March 13, 2022 - Glycemic Short BSG Results (Last 24 hours): 03/12/22 03/12/22 03/13/22 16:34 20:03 07:16 Glucose 192 H POC Glucose 131 H 212 H 03/13/22 03/13/22 07:42 11:33 Glucose POC Glucose 223 H 274 H OUTPATIENT ANTIDIABETIC REGIMEN: * Trulicity 2.25mg SQ weekly * Novolog 7 units SQ TID with meals * HbA1c: 7.2% (03/12/22) ASSESSMENT: 03/13 * Patient received total of 46 units of insulin yesterday, of which 20 units were basal insulin * Fasting BSG 192 mg/dL - will plan to titrate up basal with ongoing steroids * Will tighten CF/CR with lunch since BSG trending up 03/12 * Ms Oh is a 51yo diabetic F admitted with hypoxia/pneumonia. * Pt is currently receiving high-dose IV steroids (SoluMedrol 40mg IV q12h), which are expected to contribute to hyperglycemia. * Pt was initiated on SQ basal/bolus insulin on admission. * Will continue to titrate until adequate glycemic control is achieved. Expect that patient's insulin requirements will decrease as steroids taper or stop. PLAN FOR INPATIENT GLYCEMIC CONTROL: * Basal insulin * Lantus 10-15 units SQ BID * Bolus insulin * NovoLog per scale ACHS or Q6hrs while NPO * Goal Range: Low 110 mg/dL - High 140 mg/dL * Correction Factor: 25 mg/dL/unit * Nutritional / Prandial insulin per carb ratio of 1 unit per 7 grams CHO consumed
[2022-03-13] MEDS: cefTRIAXone SODIUM 1,000 MG in DEXTROSE 5% AD-VAN 50 ML IV SCH (15:35)
[2022-03-13] MEDS: LORazepam 0.5 MG TAB PO PRN (20:59)
[2022-03-13] MEDS: ONDANSETRON INJ 2 MG/ML 2 ML VIAL IV PRN (21:00)
[2022-03-13] MEDS: AMITRIPTYLINE HCL 10 MG TAB PO SCH (21:00)
[2022-03-13] MEDS: ESZOPICLONE 1 MG TAB PO SCH (21:00)
[2022-03-13] MEDS: GABAPENTIN 100 MG CAP PO SCH (21:01)
[2022-03-13] MEDS ORDERED: CALCIUM CARBONATE 500 MG CHEWABLE TAB PO PRN (23:50)
[2022-03-14] MEDS ORDERED: INSULIN ASPART PER UNIT SC SCH
[2022-03-14] MEDS: methylPREDNISolone 40 MG in SYRINGE 0 ML IV SCH (04:05)
[2022-03-14 06:48] LABS: Basophils # (auto) 0.03 K/uL (0-0.2); Basophils % (auto) 0.2 %; Eosinophils # (auto) 0.01 K/uL (0-0.50); Eosinophils % (auto) 0.1 %; Hematocrit (blood only) 42.6 % (37.0-47.0); Hemoglobin 14.3 g/dl (12.0-16.0); Immature Granulocytes # (auto) 0.11 K/uL (0.01-0.20); Immature Granulocytes % (auto) 0.6 %; Lymphocytes # (auto) 2.04 K/uL (1.2-3.4); Lymphocytes % (auto) 11.3 %; Mean Corpuscular Hemoglobin 30.5 pg (25.0-34.0); Mean Corpuscular Hgb Conc 33.6 g/dL (32.0-36.0); Mean Corpuscular Volume 90.8 fL (80.0-100.0); Monocytes # (auto) 0.97 K/uL (0.11-0.59); Monocytes % (auto) 5.4 %; Neutrophils # (auto) 14.92 K/uL (1.40-6.50); Neutrophils % (auto) 82.4 %; Platelet Count 450 K/uL (130-400); RDW Coefficient of Variation 13.2 % (11.5-14.5); Red Blood Count 4.69 M/uL (4.20-5.40); White Blood Count 18.08 K/ul (4.8-10.8)
[2022-03-14 06:52] LABS: Albumin Globulin Ratio 1.5 (0.9-2); Albumin Level 4.1 gm/dl (3.4-5.0); BUN Creatinine Ratio 25.8 (10-20); Bilirubin,Total 0.3 mg/dl (0.2-1.0); Calcium 10.3 mg/dl (8.5-10.1); Creatinine Clr Calc Pharmacy 58.9 ml/min; Est GFR (African American) 81.3 ml/min; Est GFR (Non-African American) 70.2 ml/min; Globulin 2.8 gm/dl (2.5-4.0); Potassium 4.2 mmol/L (3.5-5.1); Total Protein 6.9 gm/dl (6.0-8.3)
[2022-03-14] MEDS: ALBUT/IPRATROP 3MG/0.5MG NEB 3 ML VIAL NEB SCH ×2 (07:12→11:27)
[2022-03-14] MEDS: ENOXAPARIN INJ 30 MG/0.3 ML SYR SQ SCH (07:27)
[2022-03-14] MEDS: ASPIRIN 81 MG ECTAB PO SCH (07:28)
[2022-03-14] MEDS: PANTOprazole 40 MG TAB PO SCH (07:28)
[2022-03-14] MEDS: FAMOTIDINE 40 MG TABLET PO SCH (07:28)
[2022-03-14] MEDS: ROSUVASTATIN CALCIUM 20 MG TAB PO SCH (07:28)
[2022-03-14] MEDS: buPROPion XL 150 MG TABCR PO SCH (07:28)
[2022-03-14] MEDS: DOXYCYCLINE HYCLATE 100 MG CAP PO SCH (07:29)
[2022-03-14] MEDS: INSULIN ASPART PER UNIT SC SCH (08:18)
[2022-03-14] MEDS ORDERED: LANTUS PER UNIT CHARGE SQ SCH (09:00)
--- NOTE | 2022-03-14 10:48 | Discharge Summary ---
Date of Service March 14, 2022 Admission HPI Per Admitting Provider Ms. Emmy Galindo is a 51-year-old female that presented to the [facility] with increasing shortness of breath that has been occurring over the past week. She stated that midweek last week she started to have a nonproductive cough and yesterday 03/10 she proceeded to her PCP office as her breathing became more labored and SPO2 that was monitored at home was 85 to 86%. On her way to her appointment her SPO2 level dropped to 81%. She reports shortness of breath at rest but no orthopnea. At the outpatient appointment she was given a Z-Aden and taper steroids for which she took 1 days worth without improvement. 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 Chest x-ray reveals left-sided pneumonia. Patient smokes cigarettes 1 PPD x20 years and also has a medical marijuana card for which she does vape. She does report that she does not use vaping daily however when she started to use it a few days ago is when her cough became worse. She denies any alcohol or other recreational drug use. Leukocytosis noted WBC 22.01. Mag 1.8, lactic acid 0.7, procalcitonin negative. Patient denies any sick contacts and tested negative for COVID yesterday. She is vaccinated against flu and COVID. In the ED she received IV steroids and 1 dose IV cefepime. Slight tachycardia heart rate 101. She does not wear supplemental oxygen at baseline. During my encounter she had 4 L nasal cannula on with SPO2 97%. Patient has never received a formal diagnosis of COPD however feel it would be beneficial to have outpatient PFTs and pulmonary consultation. Patient AOx4 and able to answer all questions without becoming dyspneic. Patient is having expiratory wheezes and sounds coarse and tight. Otherwise euvolemic on exam and reports she has been eating and drinking. Her sugars have been a little higher than normal at home. Patient receptive for admission for further evaluation and management. Please see A/P for further details. Admission Exam Per Admitting Provider Neuro: AAOx4, PERRLA, no aphagia, memory changes, CNII-XII grossly intact HEENT: head normocephalic, moist mucus membranes CV: S1/S2, (-) M/G/R, (-) edema, cap refill < 3 seconds Resp: Lungs posterior wheezes, coarse, decreased in bases. On 4 LNC GI: Abdomen S/NT/ND, Ax4 bowel sounds, (-) CVA tenderness Musculoskeletal: 5/5 B/L UE strength, 5/5 B/L LE strength. No gait disturbance Skin: (-) rashes , (-) erythema. Psych: euthymic mood Principal Diagnosis Pneumonia: Acute Hypoxia Respiratory Failure: Tobacco use: Discharge Exam Constitutional: WD/WN, vitals as above, NAD, sitting up in bed, pleasant, conversing easily Respiratory: Occasional wheeze heard. Cardiovascular: RRR, no murmur, no edema Vessels: no JVD or carotid bruit Chest: normal inspection of chest Abdomen: normal bowel sounds, soft, nontender, no hepatosplenomegaly Musculoskeletal: no cyanosis or clubbing, extremities motor strength 5/5 Skin: no rashes, warm and dry normal turgor Neurologic: PERRL, EOMI, accommodation nl, no face palsy, no dysarthria CN's II- XI intact bilaterally and moves all extremities Psychiatric: A+Ox3, euthymic affect Lymphatic: no cervical or axillary lymphadenopathy : deferred Discharge Data Allergies Allergy/AdvReac Type Severity Reaction Status Date / Time metformin AdvReac Unknown GI UPSET Verified 06/18/21 12:44 Consultations 03/11/22 18:05 ED Decision to Admit Stat Ordered Studies 03/12/22 09:02 CT angio chest PE protocol Urgent Hospital Course (1) Hypoxia: (2) Pneumonia: (3) Insulin dependent diabetes mellitus: (4) Anxiety disorder: (5) Hypercholesterolemia: (6) GERD (gastroesophageal reflux disease): Plan Patient is a 51-year-old female with past medical history of type 2 diabetes mellitus with peripheral neuropathy, hyperlipidemia, hypertension, anxiety who presented to the ED with shortness of breath for last 1 week. She had gone to her primary care doctor; found to have 86% saturation on room air and was sent here. On presentation, patient was hemodynamically stable; required 2 to 3 L to maintain oxygen saturation. Patient had extensive history of smoking and vaping. Chest x-ray was done which showed subtle ill-defined left midlung airspace opacities. CT angio chest was done which did not show any PE; patchy bilateral groundglass density suggestive of infective/inflammatory dermatitis was present. Patient was treated with IV steroids, IV antibiotics and supplemental oxygen. Through the course of the hospitalization, patient showed signs of improvement. 2 step oxygen evaluation was done at discharge; did not require any oxygen at rest and on exertion. She was discharged with 5 more days of oral antibiotic, 3 days of oral steroids. Nicotine patch and albuterol inhaler were also prescribed. Discussion was done with the patient regarding following up with primary care doctor. Discussion was also done regarding following up on pulmonary nodule with CT chest in the future after discussion with her primary care doctor. Total Time Total Time Spent Total Time Spent (In Minutes): 40 Total Time Includes: Examination of the Patient, Discharge Planning, Medication Reconciliation, Communication With Other Providers and Other Discharge Plan Discharge Items Patient Disposition: Home - Self-Care Reason For Visit: HYPOXIA Discharge Diagnosis: Pneumonia: Hypoxia: Tobacco use: Activity: Resume your previous activity Non-emergency contact: Primary Care Provider Call non-emergency contact if: you have any medication questions and your symptoms worsen Follow-up/Referrals: Gill Francisco MD [Primary Care Provider] - Diet: Regular and Carb Consistent or DM2 Addtl Attending Provider Instructions: You were admitted to the hospital with pneumonia. You are treated with steroids and antibiotic during the hospitalization. You are following prescription sent to your pharmacy: 1) Antibiotics (cefdinir and doxycycline) twice a day for 5 more days 2) Prednisone 40 mg once daily for 3 days 3) Cough syrup as needed every 6 hours. 4) Albuterol inh every 6 hours as needed for shortness of breath/ wheezing. You were also prescribed nicotine patch. You can also buy [id number] nicotine gum if you have craving for smoking. Please follow-up with your primary care doctor later this week. No other medication changes are made. You had a CT scan done which showed "two low suspicion solid pulmonary nodules of the right lung measuring up to 5 mm, likely benign". You will need follow-up CT scan in the future. Please discuss this with your primary care doctor. Pending Studies at Discharge: No Stand-Alone Forms: [employer], Smoking Cessation Medications and DC Order Prescriptions: New doxycycline hyclate 100 mg Capsule 100 mg PO BID 4 Days Qty: 8 0RF Robitussin Cough-Chest Jose DM 5-100 mg/5 mL Liquid 10 ml PO Q6H PRN (Reason: cough) Qty: 237 0RF cefdinir 300 mg capsule 300 mg PO BID 5 Days Qty: 10 0RF prednisone 20 mg tablet 40 mg PO DAILY 3 Days Qty: 6 0RF nicotine 21 mg/24 hr patch 24 hour 1 patch transdermal DAILY Qty: 7 0RF albuterol sulfate 90 mcg/actuation aerosol powdr breath activated 1 inh inhalation Q6H PRN (Reason: shortness of breath or wheezing) Qty: 1 0RF Continued aspirin [Adult Low Dose Aspirin] 81 mg tablet,delayed release (DR/EC) 81 mg PO QAM bupropion HCl [Wellbutrin XL] 150 mg tablet extended release 24 hr 150 mg PO QAM eszopiclone [Lunesta] 3 mg tablet 3 mg PO HS rosuvastatin [Crestor] 40 mg tablet 40 mg PO QAM lorazepam [Ativan] 0.5 mg tablet 0.5 mg PO Q4 PRN (Reason: Anxiety) nitroglycerin [Nitrostat] 0.4 mg tablet, sublingual 0.4 mg SL Q5M PRN (Reason: Chest Pain) Rx Instructions: place under tongue 0.4mg every 5 minutes as needed for chest pain amitriptyline 10 mg tablet 30 mg PO HS insulin aspart U-100 [Novolog FlexPen U-100 Insulin] 100 unit/mL (3 mL) In sulin Pen 7 unit SUBCUT PC Rx Instructions: inject after meal Trulicity 0.75 mg/0.5 mL Pen Injector 0.75 mg SUBCUT WK Rx Instructions: use with 1.5mg gabapentin 100 mg capsule 100 mg PO HS Trulicity 1.5 mg/0.5 mL pen injector 1.5 mg SUBCUT WK Rx Instructions: use with 0.75mg ondansetron 8 mg tablet,disintegrating 8 mg translingual Q8 PRN (Reason: Nausea And Vomiting) omeprazole 20 mg Tablet,Delayed Release (Dr/Ec) 20 mg PO QAM famotidine 40 mg Tablet 40 mg PO QAM prednisone 10 mg tablet 10 mg PO UD Rx Instructions: take 5 tabs for 2 days,4 tabs for 2 days,3 tabs for 2 days,2 tabs for 2 days then 1 tab for 2 days// ordered 03/10/22 Discontinued azithromycin 250 mg tablet 250 mg PO UD Rx Instructions: ordered 03/10/22 take 2 tabs first day,then 1 tab daily on days 2-5 Discharge Orders: Discharge Order (Routine); Ordered 03/14/22 Ordered By: Leonardo Camargo Admission Data Admit Date/Time: 03/11/22 18:19 Attending Provider: Leonardo Camargo Admit Provider: Franci Kirk Primary Care Provider: Gill Francisco Other Providers: Franci Kirk
--- NOTE | 2022-03-17 11:08 | Coding Query ---
PRESENT ON ADMISSION QUERY To promote full compliance with coding requirements relating to pateint care, physician participation is requested in all cases of magistrate judge uncertainty. Please assist us with the question(s) below: Please place an X within the parenthesis (x). The following diagnosis listed in this patient's medical record require physician assistance to determine if they were present on admission (POA) or not. Please advise for each diagnosis whether it was present on admission, not present on admission, or if it was clinically undetermined. 1. ACUTE HYPOXIA RESPIRATORY FAILURE (regarding the Acute Respiratory Failure - the Acute Respiratory Failure is not documented until the Discharge Summary) (X ) Present On Admission ( ) Not Present On Admission ( ) Clinically Undetermined Thank you Bibiana Cervantes *Definition of the present on admission (POA)-Present on admission is defined as present at the time the order for inpatient admission occurs. Conditions that develop during an outpatient encounter prior to a written order for inpatient admission (including emergency department, observation, or outpatient surgery) are considered present on admission. MTDD
== END 2022-03-14 12:54 | disposition home or self-care (01) | DRG 193 ==
LOC: ED 15:15 → SUATTDRO 18:19 → EDINP 18:19 → 2N 21:32

== ENCOUNTER 2023-01-23 15:11 | Inpatient (IN) ==
--- OUTSIDE RECORDS SUMMARY | 2023-01-23 15:17 | External Medical Summary | Summary of Care ---
Author Name Unknown Organization [facility] [address] [facility] [address] Phone [phone] Care Team Providers Care Brazer Induction Name Role Phone Tom Francisco MD Primary Care Provid er Encounter Details Date Type Department Care Team Description 09/07/[address] [facility] [address] [place] [address] Tom Francisco MD [address] [place] [address] Allergies Active Allergy Reactions Severity Noted Date Comments Chlorpheniramine-Codeine 11/03/2021 ADDICTIVE FOR PT Metformin Nausea/vomiting High 11/22/2012 Other reaction(s): Nausea, Nausea/Vomiting documented as of this encounter (statuses as of 10/08/2022) Medications Medication Sig Dispensed Refills Start Date End Date Status Kvglzaapzk-TPSK-Ul ffeine 50-325-40 MG Oral Capsule Take by mouth 1 Capsule every 4 hours as needed . 0 Active Nitroglycerin 0.4 MG Sublingual Tablet Sublingual (Nitrostat) Place under the tongue 0.4 mg every 5 minutes as needed for Pain, Chest. 0 Active Aspirin 81 MG Oral Tablet Delayed Release Take by mouth 81 mg in the morning. 0 Active D3 2000 50 MCG (1999) Oral Capsule (Cholecalciferol) Take by mouth 2,000 Units daily . 0 Active Omeprazole 20 MG Oral Capsule Delayed Release (PriLOSEC) Take by mouth 20 mg in the morning. 0 Active Glucagon 1 MG/0.2ML Subcutaneous Solution Auto-injector Inject under the skin 1 mg . 0 06/05/19 22 Active Triamcinolone Acetonide 0.1 % External Cream (Aristocort) triamcinolone acetonide 0.1 % topical cream 0 Active OneTouch Ultra Blue In Vitro Strip (Glucose Blood) OneTouch Ultra Test strips 0 Active Rosuvastatin Calcium 40 MG Oral Tablet (Crestor)Indicatio ns:Dyslipidemia, goal LDL below 70 Take by mouth 1 Tablet in the morning. 90 Tablet 3 11/14/19 22 Active NovoLOG FlexPen 100 UNIT/ML Subcutaneous Solution Pen-injector (insulin aspart) INJECT 7 UNITS SUBCUTANEOUSLY AFTER EACH MEAL Strength: 100 UNIT/ML 1 Each 5 01/09/20 22 Active buPROPion HCl ER (XL) 150 MG Oral Tablet Extended Release 24 Hour (Wellbutrin XL) Take 1 Tablet by mouth in the morning. 90 Tablet 3 02/22/19 23 Active Trulicity 1.5 MG/0.5ML Subcutaneous Solution Pen-injector (Dulaglutide)Indic ations:Type 2 diabetes mellitus with hemoglobin A1c goal of less than 7.0% (HCC),Ischemic heart disease Inject 1.5 mg under the skin once a week. 2 mL 5 03/07/19 23 Active Trulicity 0.75 MG/0.5ML Subcutaneous Solution Pen-injector (Dulaglutide)Indic ations:Type 2 diabetes mellitus with hemoglobin A1c goal of less than 7.0% (HCC),Ischemic heart disease Inject 0.75 mg under the skin once a week. To be used along with 1.5mg dose for a total of 2.25 mg weekly. 2 mL 5 03/07/19 23 Active Benzonatate 100 MG Oral Capsule Take 2 Capsules by mouth 3 times a day as needed for Cough. 30 Capsule 1 03/10/19 23 Active Cefdinir 300 MG Oral Capsule (Omnicef) Take 1 Capsule by mouth in the morning and 1 Capsule in the evening. For 5 days. 0 03/14/19 23 Active predniSONE 20 MG Oral Tablet (Deltasone) Take 1 Tablet by mouth in the morning. For 3 days. 0 03/14/19 23 Active Nicotine 21 MG/24HR Transdermal Patch 24 Hour (Nicoderm CQ) Place 1 Patch topically on the skin daily. 0 03/14/19 23 Active Albuterol Sulfate HFA 108 (90 Base) MCG/ACT Inhalation Aerosol Solution Inhale 1 Puff by mouth every 6 hours as needed. 0 03/14/19 23 Active BD Pen Needle Clau U/F 32G X 4 MM (Insulin Pen Needle) USE ONE PEN NEEDLE FOR INSULIN THREE TIMES A DAY BEFORE MEALS. 300 Each 3 03/30/19 23 Active Famotidine 40 MG Oral Tablet (Pepcid) TAKE ONE TABLET BY MOUTH IN THE MORNING 90 Tablet 1 06/01/19 23 Active Gabapentin 100 MG Oral Capsule (Neurontin)Indicat ions:Persistent insomnia TAKE ONE CAPSULE BY MOUTH NIGHTLY AT BEDTIME Strength: 100 mg 30 Capsule 5 06/26/19 23 Active Trulicity 3 MG/0.5ML Subcutaneous Solution Pen-injector (Dulaglutide)Indic ations:Type 2 diabetes mellitus with hemoglobin A1c goal of less than 7.0% ([facility]),Ischemic heart disease Inject 3 mg under the skin once a week. 2 mL 5 07/27/19 23 Active Eszopiclone 3 MG Oral Tablet Take 1 Tablet by mouth at bedtime. 30 Tablet 2 08/10/19 23 Active LORazepam 0.5 MG Oral Tablet (Ativan)Indication s:Other situational type phobia Take 1 Tablet by mouth every 8 hours as needed for Anxiety. 30 Tablet 0 09/08/19 23 Active Amitriptyline HCl 10 MG Oral Tablet (Elavil) Take 3 Tablets by mouth at bedtime. 90 Tablet 3 09/05/19 23 Active Ondansetron 8 MG Oral Tablet Disintegrating (Zofran) DISSOLVE 1 TABLET ON TONGUE EVERY 8 HOURS NEEDED FOR NAUSEA AND VOMITING. 20 Tablet 1 09/05/19 23 Active Simvastatin 80 MG Oral Tablet (Zocor) 0 Active Citalopram Hydrobromide 10 MG Oral Tablet (CeleXA) Take 1 Tablet by mouth in the morning. 30 Tablet 5 10/09/19 23 Active FreeStyle Marcela 14 Day Sensor Use as directed. 2 Each 3 06/09/19 23 023 Discontinued Hospital, Clinic, or Other Facility Administered Medication Ordered Dose Route Frequency Start Date End Date Status Albuterol Sulfate (Proventil) (2.5 MG/3ML) 0.083% inhalation solution 2.5 mgIndications:Cigarette smoker,Hypoxia,Pneumoni a due to infectious organism, unspecified laterality, unspecified part of lung,Vapes non-nicotine containing substance 2.5 mg NEBULIZER ONCE PRN 03/22/2022 03/22/2023 Active documented as of this encounter (statuses as of 10/08/2022) Active Problems Problem Noted Date Smokes 1 pack of cigarettes per day 07/08 Cigarette smoker 03/22/2022 Chronic low back pain 02/05/2022 Other situational type phobia 02/05/2022 Vitamin D deficiency 11/03/2021 RLS (restless legs syndrome) 11/03/2021 Diverticulitis 11/03/2021 Dysmenorrhea 11/03/2021 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 Ischemic heart disease 11/03/2021 Type 2 diabetes mellitus with hemoglobin A1c goal of less than 7.0% 07/28/2021 Persistent insomnia 07/28/2021 Medical marijuana use 07/28/2021 History of tobacco abuse 07/28/2021 Long-term current use of benzodiazepine 07/28/2021 History of narcotic addiction 07/28/2021 Current use of insulin 07/28/2021 MEDICATION USE AGREEMENT 07/28/2021 Prolonged PTT (partial thromboplastin ti me) 10/29/2015 documented as of this encounter (statuses as of 10/08/2022) Immunizations Name Administration Dates Next Due COVID-19 mRNA, LNP-s, No Pre serve, 2-Dose Series (Moderna) 05/22/2020,05/01/2020 COVID-19, LNP-s, No Preserve , Sourav-sucrose, Ages 12+ (Pfizer) 01/14/2021 DTaP - Dipth/Tet/Acell Pertussis 09/25/2013,1002/2001 Pneumococcal Conjugate Vacc, 13 Valent (Prevnar) 01/14/2015 Pneumococcal Polysaccharide PPV23 (Pneumovax) Seasonal Influenza, Split, IIV3, With Preserve, Inj 11/26/2008 documented as of this encounter Social History Tobacco Use Types Packs/Day Years Used Date Smoking Tobacco: Every Day Cigarettes 1 30 Smokeless Tobacco: Never Comments:1ppd Alcohol Use Standard Drinks/Week Comments No 0 (1 standard drink = 0.6 oz pur e alcohol) Food Insecurity Answer Date Recorded Within the past 12 months, y ou worried that your food would run out before you got money to buy more. Never true 09/07/2022 Within the past 12 months, t he food you bought just didn't last and you didn't have money to get more. Never true 09/07/2022 Sex Assigned at Date Recorded Female 09/07/2022 6:21 PM E [employer] Job Start Date Occupation Industry Not on file Not on file Not on file documented as of this encounter Miscellaneous Notes * Addendum Note - Tom Francisco MD - 10/08/2022 12:58 PM EDTAddended by: TOM FRANCISCO on: 10/08/2022 12:58 PM Modules accepted: Orders * Telephone Encounter - Tom Francisco MD - 09/07/2022 6:50 PM EDT MyG sent documented in this encounter Plan of Treatment Upcoming Encounters Date Type Specialty Care Team Description 01/21/2023 Office Visit Family Medicine Tom Francisco MD [address] [place] [address] Health Maintenance Due Date Last Done Comments DISCUSS TOBACCO CESSATION (REFER TO SMARTSET #8899) 1968 Hepatitis B (1 of 3 - 3-dose series) 1968 Albumin/Creatinine Ratio 1986 DIABETES-FOOT EXAM 1986 Cologuard 2013 Fecal Occult Blood Test 2013 Sigmoidoscopy 2013 Zoster Vaccines (1 of 2) 2018 COVID-19 Vaccine (4 - Moderna series) 03/11/2021 01/14/2021, 05/22/2020, 05/22/2020, Additional history exists Mammogram 01/22/2022 01/22/2021, 01/07, 01/22/2021, Additional history exists DIABETES-EYE EXAM 02/25/2022 02/25/2021 Depression Screening, Annual for Pts 12 and Over 07/28/2022 07/28/2021 GFR 08/03/2022 08/03/2021, 07/08, 06/18/2021, Additional history exists Influenza Vaccine (FLU shot) (#1) 2022 11/26/2008 HbA1c 01/18/2023 07/19/2022, 01/07, 07/08/2015 DTaP,Tdap,and Td Vaccines (3 - Tdap) 09/26/2023 09/25/2013, 11/07/2001 Colonoscopy 07/20/2025 07/21/2015, 07/21/2015 Colorectal Cancer Screening 07/20/2025 Pneumococcal Vaccine: Pediatrics (0 to 5 Years) and At-Risk Patients (6 to 64 Years) (3 - PPSV23 or PCV20) 2033 12/24/2016, 01/14/2015 Pap Smear Discontinued 05/27/2015 Hepatitis C Screening Completed 08/03/2021 , 08/03/2021, 08/03/2021 LUNG CANCER SCREENING - USE SMARTSET [id number] Completed 03/12/2022 GARDASIL-HPV IMMUNIZATION SERIES Aged Out No longer eligible based on patient's age to complete this topic MENINGOCOCCAL (MENACTRA/MENVEO) Aged Out No longer eligible based on patient's age to complete this topic documented as of this encounter Medical Devices Not on filedocumented as of this encounter Care Teams Brazer Induction Relationship Specialty Start Date End Date Tom Francisco MD [address] [place] [address] PCP - General Family Medicine 07/28/21 documented as of this encounter
--- OUTSIDE RECORDS SUMMARY | 2023-01-23 15:17 | External Medical Summary | Summary of Care ---
Author Name Unknown Organization [facility] [address] [facility] [address] Phone [phone] Care Team Providers Care Hairspring Truer Name Role Phone Gill Francisco MD Primary Care Provid er Encounter Details Date Type Department Care Team Description 09/08/2022 Telephone [facility] [address] [place] [address] Gill Francisco MD [address] [place] [address] Allergies Active Allergy Reactions Severity Noted Date Comments Chlorpheniramine-Codeine 11/03/2021 ADDICTIVE FOR PT Metformin Nausea/vomiting High 11/22/2012 Other reaction(s): Nausea, Nausea/Vomiting documented as of this encounter (statuses as of 09/10/2022) Medications Medication Sig Dispensed Refills Start Date End Date Status Epeewyeilo-GKZL-Tfy feine 50-325-40 MG Oral Capsule Take by mouth 1 Capsule every 4 hours as needed . 0 Active Nitroglycerin 0.4 MG Sublingual Tablet Sublingual (Nitrostat) Place under the tongue 0.4 mg every 5 minutes as needed for Pain, Chest. 0 Active Aspirin 81 MG Oral Tablet Delayed Release Take by mouth 81 mg in the morning. 0 Active D3 2000 50 MCG (1999 UT) Oral Capsule (Cholecalciferol) Take by mouth 2,000 Units daily . 0 Active Omeprazole 20 MG Oral Capsule Delayed Release (PriLOSEC) Take by mouth 20 mg in the morning. 0 Active Glucagon 1 MG/0.2ML Subcutaneous Solution Auto-injector Inject under the skin 1 mg . 0 2 Active Triamcinolone Acetonide 0.1 % External Cream (Aristocort) triamcinolone acetonide 0.1 % topical cream 0 Active OneTouch Ultra Blue In Vitro Strip (Glucose Blood) OneTouch Ultra Test strips 0 Active Rosuvastatin Calcium 40 MG Oral Tablet (Crestor)Indication s:Dyslipidemia, goal LDL below 70 Take by mouth 1 Tablet in the morning. 90 Tablet 3 2 Active NovoLOG FlexPen 100 UNIT/ML Subcutaneous Solution Pen-injector (insulin aspart) INJECT 7 UNITS SUBCUTANEOUSLY AFTER EACH MEAL Strength: 100 UNIT/ML 1 Each 5 2 Active buPROPion HCl ER (XL) 150 MG Oral Tablet Extended Release 24 Hour (Wellbutrin XL) Take 1 Tablet by mouth in the morning. 90 Tablet 3 3 Active Trulicity 1.5 MG/0.5ML Subcutaneous Solution Pen-injector (Dulaglutide)Indica tions:Type 2 diabetes mellitus with hemoglobin A1c goal of less than 7.0% (HCC),Ischemic heart disease Inject 1.5 mg under the skin once a week. 2 mL 5 3 Active Trulicity 0.75 MG/0.5ML Subcutaneous Solution Pen-injector (Dulaglutide)Indica tions:Type 2 diabetes mellitus with hemoglobin A1c goal of less than 7.0% (HCC),Ischemic heart disease Inject 0.75 mg under the skin once a week. To be used along with 1.5mg dose for a total of 2.25 mg weekly. 2 mL 5 3 Active Benzonatate 100 MG Oral Capsule Take 2 Capsules by mouth 3 times a day as needed for Cough. 30 Capsule 1 3 Active Cefdinir 300 MG Oral Capsule (Omnicef) Take 1 Capsule by mouth in the morning and 1 Capsule in the evening. For 5 days. 0 3 Active predniSONE 20 MG Oral Tablet (Deltasone) Take 1 Tablet by mouth in the morning. For 3 days. 0 3 Active Nicotine 21 MG/24HR Transdermal Patch 24 Hour (Nicoderm CQ) Place 1 Patch topically on the skin daily. 0 3 Active Albuterol Sulfate HFA 108 (90 Base) MCG/ACT Inhalation Aerosol Solution Inhale 1 Puff by mouth every 6 hours as needed. 0 3 Active BD Pen Needle Clau U/F 32G X 4 MM (Insulin Pen Needle) USE ONE PEN NEEDLE FOR INSULIN THREE TIMES A DAY BEFORE MEALS. 300 Each 3 3 Active Famotidine 40 MG Oral Tablet (Pepcid) TAKE ONE TABLET BY MOUTH IN THE MORNING 90 Tablet 1 3 Active FreeStyle Marcela 14 Day Sensor Use as directed. 2 Each 3 3 Active Gabapentin 100 MG Oral Capsule (Neurontin)Indicati ons:Persistent insomnia TAKE ONE CAPSULE BY MOUTH NIGHTLY AT BEDTIME Strength: 100 mg 30 Capsule 5 3 Active Trulicity 3 MG/0.5ML Subcutaneous Solution Pen-injector (Dulaglutide)Indica tions:Type 2 diabetes mellitus with hemoglobin A1c goal of less than 7.0% ([facility]),Ischemic heart disease Inject 3 mg under the skin once a week. 2 mL 5 3 Active Eszopiclone 3 MG Oral Tablet Take 1 Tablet by mouth at bedtime. 30 Tablet 2 3 Active LORazepam 0.5 MG Oral Tablet (Ativan)Indications :Other situational type phobia Take 1 Tablet by mouth every 8 hours as needed for Anxiety. 30 Tablet 0 3 Active Amitriptyline HCl 10 MG Oral Tablet (Elavil) Take 3 Tablets by mouth at bedtime. 90 Tablet 3 3 Active Ondansetron 8 MG Oral Tablet Disintegrating (Zofran) DISSOLVE 1 TABLET ON TONGUE EVERY 8 HOURS NEEDED FOR NAUSEA AND VOMITING. 20 Tablet 1 3 Active Simvastatin 80 MG Oral Tablet (Zocor) 0 Activ e Escitalopram Oxalate 10 MG Oral Tablet (Lexapro)Indication s:Anxiety Take 1 Tablet by mouth daily. 30 Tablet 5 3 Active Escitalopram Oxalate 10 MG Oral Tablet (Lexapro)Indication s:Anxiety Take 1 tab daily for 7 days then increase to 2 tabs daily. 60 Tablet 1 3 09/11/19 23 Discontinu ed(Refill) Hospital, Clinic, or Other Facility Administered Medication Ordered Dose Route Frequency Start Date End Date Status Albuterol Sulfate (Proventil) (2.5 MG/3ML) 0.083% inhalation solution 2.5 mgIndications:Cigarette smoker,Hypoxia,Pneumoni a due to infectious organism, unspecified laterality, unspecified part of lung,Vapes non-nicotine containing substance 2.5 mg NEBULIZER ONCE PRN 03/22/2022 03/22/2023 Active documented as of this encounter (statuses as of 09/10/2022) Active Problems Problem Noted Date Smokes 1 [...] as of this encounter (statuses as of 09/10/2022) Immunizations Name Administration Dates Next Due COVID-19 mRNA, LNP-s, No Pre serve, 2-Dose Series (Moderna) 05/22/2020,05/01/2020 COVID-19, LNP-s, No Preserve , Sourav-sucrose, Ages 12+ (Pfizer) 01/14/2021 DTaP - Dipth/Tet/Acell Pertussis 09/25/2013,10/02/2001 Pneumococcal Conjugate Vacc, 13 Valent (Prevnar) 01/14/2015 [...] as of this encounter Miscellaneous Notes * Telephone Encounter - Gill Francisco MD - 09/10/2022 3:32 PM EDT Script changed. * Telephone Encounter - Mirella Ordonez LPN - 09/10/2022 7:58 AM EDT Fax from pharmacy-lexapro 10mg BID is not covered. They will only cover one per day. Please change to 20mg tab daily if appropriate. * Telephone Encounter - Evelyn Lambert LPN - 09/08/2022 9:25 AM EDT error documented in this encounter Plan of Treatment Upcoming Encounters Date Type Specialty Care Team Description 09/21/2022 Appointment Radiology 01/21/2023 Office Visit Family Medicine Gill Francisco MD [address], [place] [id number] Health Maintenance Due Date Last Done Comments DISCUSS TOBACCO CESSATION (REFER TO SMARTSET #8616) 1970 Hepatitis B (1 of 3 - [...] 08/03/2021 LUNG CANCER SCREENING - USE SMARTSET 70256 Completed 03/12/2022 GARDASIL-HPV IMMUNIZATION SERIES Aged Out No longer eligible based on patient's age to complete this topic MENINGOCOCCAL (MENACTRA/MENVEO) Aged Out No longer eligible based on patient's age to complete this topic documented as of this encounter Medical Devices Not on filedocumented as of this encounter Visit Diagnoses Diagnosis Anxiety Anxiety state, unspecified documented in this encounter Care Teams Hairspring Truer Relationship Specialty Start Date End Date Gill Francisco MD [address] [place] [address] PCP - General Family Medicine 07/28/21 documented as of this encounter
--- OUTSIDE RECORDS SUMMARY | 2023-01-23 15:17 | External Medical Summary | Summary of Care ---
Author Name Unknown Organization [facility] Address [address] [place] [address] Phone [phone] Care Team Providers Care College Professor Name Role Phone Tom Cleaning MD Primary Care Provid er Reason for Visit * Reason Comments eRx-Medication Refill Encounter Details Date Type Department Care Team (Late st Contact Info) Description 09/22/2022 Refill [facility] [address] [place] [address] Tom Cleaning MD [address] [place] [address] Allergies Active Allergy Reactions Criticality Noted Date Comments Chlorpheniramine-Codeine 11/03/2021 ADDICTIVE FOR PT Metformin Nausea/vomiting High 11/22/2012 Other reaction(s): Nausea, Nausea/Vomiting documented as of this encounter (statuses as of 12/22/2022) Medications Medication Sig Dispensed Refills Start Date End Date Status Hlqwiorapl-DZIC-Bf ffeine 50-325-40 MG Oral Capsule Take by mouth 1 Capsule every 4 hours as needed . 0 Active Nitroglycerin 0.4 MG Sublingual Tablet Sublingual (Nitrostat) Place under the tongue 0.4 mg every 5 minutes as needed for Pain, Chest. 0 Active Aspirin 81 MG Oral Tablet Delayed Release Take by mouth 81 mg in the morning. 0 Active D3 2000 50 MCG (2000 UT) Oral Capsule (Cholecalciferol) Take by mouth [...] morning. 90 Tablet 3 11/14/19 22 Active buPROPion HCl ER (XL) 150 [...] hemoglobin A1c goal of less than 7.0% ([facility]),Ischemic heart disease Inject 3 mg under the skin once a week. 2 mL 5 07/27/19 23 Active Amitriptyline HCl 10 MG Oral Tablet (Elavil) Take 3 Tablets by mouth at bedtime. 90 Tablet 3 09/05/19 23 Active Simvastatin 80 MG Oral Tablet (Zocor) 0 Active NovoLOG FlexPen 100 UNIT/ML Subcutaneous Solution Pen-injector (insulin aspart) INJECT 7 UNITS SUBCUTANEOUSLY AFTER EACH MEAL Strength: 100 UNIT/ML 1 Each 5 01/09/20 22 023 Discontinued FreeStyle Marcela 14 Day Sensor Use as directed. 2 Each 3 06/09/19 23 023 Discontinued Eszopiclone 3 MG Oral Tablet Take 1 Tablet by mouth at bedtime. 30 Tablet 2 08/10/19 23 023 Discontinued(Re fill) LORazepam 0.5 MG Oral Tablet (Ativan)Indication s:Other situational type phobia Take 1 Tablet by mouth every 8 hours as needed for Anxiety. 30 Tablet 0 09/08/19 23 023 Discontinued(Re fill) Ondansetron 8 MG Oral Tablet Disintegrating (Zofran) DISSOLVE 1 TABLET ON TONGUE EVERY 8 HOURS NEEDED FOR NAUSEA AND VOMITING. 20 Tablet 1 09/05/19 23 023 Discontinued(Re fill) Escitalopram Oxalate 10 MG Oral Tablet (Lexapro)Indicatio ns:Anxiety Take 1 Tablet by mouth daily. 30 Tablet 5 09/11/19 23 023 Discontinued FreeStyle Marcela 14 Day Sensor USE DIRECTED 3 Each 0 09/24/19 23 023 Discontinued(Re fill) Hospital, Clinic, or Other Facility Administered Medication Ordered Dose Route Frequency Start Date End Date Status Albuterol Sulfate (Proventil) (2.5 MG/3ML) 0.083% inhalation solution 2.5 mgIndications:Cigarette smoker,Hypoxia,Pneumoni a due to infectious organism, unspecified laterality, unspecified part of lung,Vapes non-nicotine containing substance 2.5 mg NEBULIZER ONCE PRN 03/22/2022 03/22/2023 Active documented as of this encounter (statuses as of 12/22/2022) Active Problems Problem Noted Date Diagnosed Date Smokes 1 pack of cigarettes per day 07/20/2022 Cigarette smoker 03/22/2022 Chronic low back pain 02/05/2022 Other situational type phobia 02/05/2022 Vitamin D deficiency 11/03/2021 RLS (restless legs syndrome) 11/03/2021 Diverticulitis 11/03/2021 Dysmenorrhea 11/03/2021 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 Ischemic heart disease 11/03/2021 Type 2 diabetes mellitus wit h hemoglobin A1c goal of less than 7.0% 07/28/2021 Persistent insomnia 07/28/2021 Medical marijuana use 07/28/2021 History of tobacco abuse 07/28/2021 Long-term current use of benzodiazepine 07/29/19 22 History of narcotic addiction 07/28/2021 Current use of insulin 07/28/2021 MEDICATION USE AGREEMENT 07/28/2021 Prolonged PTT (partial thromboplastin time) 10/09 documented as of this encounter (statuses as of 12/22/2022) Immunizations Name Administration Dates Next Due COVID-19 mRNA, LNP-s, No Pre serve, 2-Dose Series (Moderna) 05/22/2020,05/01/2020 COVID-19, LNP-s, No Preserve , Sourav-sucrose, Ages 12+ (Pfizer) 01/14/2021 DTaP Dipth/Tet/Acell Pertussis (Infanrix), Peds 09/25/2013,11/07/2001 Pneumococcal Conjugate Vacc, 13 Valent (Prevnar) 01/14/2015 Pneumococcal Polysaccharide PPV23 (Pneumovax) Seasonal Influenza, Split, IIV3, With Preserve, Inj 11/26/2008 documented as of this encounter Social History Tobacco Use Types Packs/Day Years Used Date Smoking Tobacco: Every Day Cigarettes 1 30 Smokeless Tobacco: Never Comments:1ppd Alcohol Use Standard Drinks/Week Comments No 0 (1 standard drink = 0.6 oz pur e alcohol) PHQ-2 Answer Date Recorded PHQ Adult Total Score 0 07/28/2021 Hunger Vital Sign Answer Date Recorded Within the past 12 months, y ou worried that your food would run out before you got the money to buy more. Never true 09/08/19 23 Within the past 12 months, t he food you bought just didn't last and you didn't have money to get more. Never true 09/07/2022 Sex and Gender Information Value Date Recorded Sex Assigned at Female 09/07/2022 6:21 PM EDT Gender Identity Female 09/07/2022 6:21 PM EDT Sexual Orientation Bisexual 09/07/2022 6: 21 PM EDT Job Start Date Occupation Industry Not on file Not on file Not on file documented as of this encounter Miscellaneous Notes * Telephone Encounter - Emmy Gutierrez farm field manager - 12/22/2022 6:31 AM EST Received message from [facility] regarding patient needing labs. Letter was sent out to patient to advise. Thank you, Emmy Gutierrez [place] Supervisor [facility] ([facility] (Formerly Telepharmacy) 12/22/2022,6:31 AM * Telephone Encounter - Edil Mayorga [facility] - 09/23/2022 10:11 AM EDT Signed Prescriptions: Disp Refills FreeStyle Marcela 14 Day Sensor 3 Each 0 Sig: USE DIRECTED Authorizing Provider: TOM CLEANING Ordering User: EDIL MAYORGA * Telephone Encounter - Edil Mayorga RPh - 09/23/2022 10:09 AM EDT Provided 90 days supply with 0 refill(s). Per refill protocol patient should have Lipid panel on file within past year. Reviewed AMP report, Care Gaps/Health Maintenance, medications list, and for any routine labs typically ordered for this patient. Lab orders placed. Please contact patient to advise of labs ordered for blood draw. Recommend patient to fast if able for labs. Patient may still have water and regular medications. Advise to obtain labs before requesting the next refill. Thanks, Edil Mayorga, PharmD Clinical Pharmacist [facility](formerly telepharmacy) [phone] 09/23/2022, 10:09 AM documented in this encounter Plan of Treatment Upcoming Encounters Date Type Department Care Team (Late st Contact Info) Description 01/21/2023 3:20 PM EST Office Visit [facility] [address] [place] [address] Tom Cleaning MD [address] [place] [address] Health Maintenance Due Date Last Done Comments DISCUSS TOBACCO CESSATION (REFER TO SMARTSET #5627) 1970 Hepatitis B (1 of 3 - 3-dose series) 1970 Albumin/Creatinine Ratio 1986 Diabetic Foot Exam 1986 Cologuard 2013 Fecal Occult Blood Test 2013 Sigmoidoscopy 2013 Zoster Vaccines (1 of 2) 2018 Mammogram 01/22/2022 01/22/2021, 01/07, 01/22/2021, Additional history exists Diabetic Eye Exam 02/25/2022 02/25/2021 Depression Screening 07/28/2022 07/28/2021 GFR 08/03/2022 08/03/2021, 07/08, 06/18/2021, Additional history exists COVID-19 Vaccine ( - 2022-24 season) 2022 01/14/2021, 05/22/2020, 05/22/2020, Additional history exists Influenza Vaccine (FLU shot) (#1) 2022 11/26/2008 HbA1c 01/18/2023 07/19/2022, 01/07, 07/08/2015 DTaP,Tdap,and Td Vaccines (3 - Tdap) 09/26/2023 09/25/2013, 11/07/2001 Colonoscopy 07/20/2025 07/21/2015, 07/21/2015 Colorectal Cancer Screening 07/20/2025 Pneumococcal Vaccine: Pediatrics (0 to 5 Years) and At-Risk Patients (6 to 64 Years) (3 - PPSV23 or PCV20) 2033 12/24/2016, 01/14/2015 Pap Smear Discontinued 05/27/2015 LUNG CANCER SCREENING - USE SMARTSET 40793 Completed 03/12/2022 GARDASIL-HPV IMMUNIZATION SERIES Aged Out No longer eligible based on patient's age to complete this topic MENINGOCOCCAL (MENACTRA/MENVEO) Aged Out No longer eligible based on patient's age to complete this topic documented as of this encounter Medical Devices Not on filedocumented as of this encounter Care Teams College Professor Relationship Specialty Start Date End Date Tom Cleaning MD [address] [place] [facility] [place] [address] PCP - General Family Medicine 07/28/21 documented as of this encounter
--- OUTSIDE RECORDS SUMMARY | 2023-01-23 15:17 | External Medical Summary | Summary of Care ---
Author Name Unknown Organization [facility] Address [address] [place] [address] Phone [phone] Care Team Providers Care Armored Machine Operator Name Role Phone Tom Cleaning MD Primary Care Provid er Reason for Visit * Reason Comments eRx-Medication Refill Encounter Details Date Type Department Care Team (Late st Contact Info) Description 11/28/2022 Refill [facility] [address] [place] [address] Tom Cleaning MD [address] [place] [address] Allergies Active Allergy Reactions Criticality Noted Date Comments Chlorpheniramine-Codeine 11/03/2021 ADDICTIVE FOR PT Metformin Nausea/vomiting High 11/22/2012 Other reaction(s): Nausea, Nausea/Vomiting documented as of this encounter (statuses as of 11/29/2022) Medications Medication Sig Dispensed Refills Start Date End Date Status Duawgubhhl-DUKB-Sf ffeine 50-325-40 MG Oral Capsule Take by [...] hemoglobin A1c goal of less than 7.0% ([facility]),Ischemic heart disease Inject 3 mg [...] morning. 30 Tablet 5 10/09/19 23 Active Ondansetron 8 MG Oral Tablet Disintegrating (Zofran) DISSOLVE 1 TABLET ON TONGUE EVERY 8 HOURS NEEDED FOR NAUSEA AND VOMITING. 20 Tablet 1 11/02/19 23 Active FreeStyle Marcela 14 Day Sensor Use as directed. Use as directed. 3 Each 5 11/02/19 23 Active Eszopiclone 3 MG Oral Tablet Take 1 Tablet by mouth at bedtime. 30 Tablet 2 11/04/19 23 Active LORazepam 0.5 MG Oral Tablet (Ativan)Indication s:Other situational type phobia,Anxiety Take 1 Tablet by mouth every 8 hours as needed for Anxiety. 30 Tablet 0 11/20/19 23 Active NovoLOG FlexPen 100 UNIT/ML Subcutaneous Solution Pen-injector (insulin aspart) INJECT 7 UNITS UNDER THE SKIN AFTER EACH MEAL 15 mL 2 11/30/19 23 Active NovoLOG FlexPen 100 UNIT/ML Subcutaneous Solution Pen-injector (insulin aspart) INJECT 7 UNITS SUBCUTANEOUSLY AFTER EACH MEAL Strength: 100 UNIT/ML 1 Each 5 01/09/20 22 023 Discontinued Hospital, Clinic, or Other Facility Administered Medication Ordered Dose Route Frequency Start Date End Date Status Albuterol Sulfate (Proventil) (2.5 MG/3ML) 0.083% inhalation solution 2.5 mgIndications:Cigarette smoker,Hypoxia,Pneumoni a due to infectious organism, unspecified laterality, unspecified part of lung,Vapes non-nicotine containing substance 2.5 mg NEBULIZER ONCE PRN 03/22/2022 03/22/2023 Active documented as of this encounter (statuses as of 11/29/2022) Active Problems Problem Noted Date Diagnosed Date [...] 07/28/2021 Long-term current use of benzodiazepine 07/29/19 History of narcotic addiction 07/28/2021 Current use of insulin 07/28/2021 MEDICATION USE AGREEMENT 07/28/2021 Prolonged PTT (partial thromboplastin time) 10/09 documented as of this encounter (statuses as of 11/29/2022) Immunizations Name Administration Dates Next Due COVID-19 [...] drink = 0.6 oz pur e alcohol) Hunger Vital Sign Answer Date Recorded Within [...] encounter Miscellaneous Notes * Telephone Encounter - Magui Haq RPh - 11/29/2022 6:08 AM EDTSigned Prescriptions: Disp Refills NovoLOG FlexPen 100 UNIT/ML Subcutaneous S*15 mL 2 Sig: INJECT 7UNITS UNDER THE SKIN AFTER EACH MEALAuthorizing Provider: TOM CLEANING User: MAGUI HAQ documented in this encounter Plan of Treatment Upcoming Encounters Date Type Department Care Team (Late st Contact Info) Description 01/21/2023 3:20 PM EST Office Visit [facility] [address] [place] [address] Tom Cleaning MD [address] [facility] [place] [address] Health Maintenance Due Date Last Done Comments DISCUSS TOBACCO CESSATION (REFER TO SMARTSET #8461) 1970 Hepatitis B (1 of 3 - 3-dose series) 1970 Albumin/Creatinine Ratio 1986 Diabetic Foot Exam 1986 Cologuard 2013 Fecal Occult Blood Test 2013 Sigmoidoscopy 2013 Zoster Vaccines (1 of 2) 2018 Mammogram 01/22/2022 01/22/2021, 01/07, 01/22/2021, Additional history exists DIABETES-EYE EXAM 02/25/2022 02/25/2021 Depression Screening 07/28/2022 07/28/2021 GFR 08/03/2022 08/03/2021, 07/08, 06/18/2021, Additional history exists COVID-19 Vaccine (2022- season) 2022 01/14/2021, 05/22/2020, 05/22/2020, Additional history [...] 05/27/2015 LUNG CANCER SCREENING - USE SMARTSET 19807 Completed 03/12/2022 GARDASIL-HPV IMMUNIZATION SERIES Aged Out No longer eligible based on patient's age to complete this topic MENINGOCOCCAL (MENACTRA/MENVEO) Aged Out No longer eligible based on patient's age to complete this topic documented as of this encounter Medical Devices Not on filedocumented as of this encounter Care Teams Armored Machine Operator Relationship Specialty Start Date End Date Tom Cleaning MD [address] [address] PCP - General Family Medicine 07/28/21 documented as of this encounter
--- OUTSIDE RECORDS SUMMARY | 2023-01-23 15:17 | External Medical Summary | Summary of Care ---
Author Name Unknown Organization [facility] Address [address] [place] [address] Phone [phone] Care Team Providers Care Finance Mgr Name Role Phone Tom Cleaning MD Primary Care Provid er Reason for Visit * Reason Onset Date Comments Medication Refill 01/04/2023 Encounter Details Date Type Department Care Team (Late st Contact Info) Description 01/04/2023 Refill [facility] [address] [place] [address] Tom Cleaning MD [address] [place] [address] Allergies Active Allergy Reactions Criticality Noted Date Comments Chlorpheniramine-Codeine 11/03/2021 ADDICTIVE FOR PT Metformin Nausea/vomiting High 11/22/2012 Other reaction(s): Nausea, Nausea/Vomiting documented as of this encounter (statuses as of 01/06/2023) Medications Medication Sig Dispensed Refills Start Date End Date Status Llllpbzeif-WMCP-Hgb feine 50-325-40 MG Oral Capsule Take by [...] the morning. 90 Tablet 3 2 Active buPROPion HCl ER (XL) 150 [...] THE MORNING 90 Tablet 1 3 Active Trulicity 3 MG/0.5ML Subcutaneous Solution Pen-injector (Dulaglutide)Indica tions:Type 2 diabetes mellitus with hemoglobin A1c goal of less than 7.0% ([facility]),Ischemic heart disease Inject 3 mg under the skin once a week. 2 mL 5 3 Active Simvastatin 80 MG Oral Tablet (Zocor) 0 Activ e Citalopram Hydrobromide 10 MG Oral Tablet (CeleXA) Take 1 Tablet by mouth in the morning. 30 Tablet 5 3 Active FreeStyle Marcela 14 Day Sensor Use as directed. Use as directed. 3 Each 5 3 Active Eszopiclone 3 MG Oral Tablet Take 1 Tablet by mouth at bedtime. 30 Tablet 2 3 Active LORazepam 0.5 MG Oral Tablet (Ativan)Indications :Other situational type phobia,Anxiety Take 1 Tablet by mouth every 8 hours as needed for Anxiety. 30 Tablet 0 3 Active NovoLOG FlexPen 100 UNIT/ML Subcutaneous Solution Pen-injector (insulin aspart) INJECT 7 UNITS UNDER THE SKIN AFTER EACH MEAL 15 mL 2 3 Active Gabapentin 100 MG Oral Capsule (Neurontin)Indicati ons:Persistent insomnia TAKE 1 CAPSULE BY MOUTH AT BEDTIME 30 Capsule 0 3 Active Amitriptyline HCl 10 MG Oral Tablet (Elavil) Take 3 Tablets by mouth at bedtime. 90 Tablet 3 3 Active Ondansetron 8 MG Oral Tablet Disintegrating (Zofran) DISSOLVE 1 TABLET ON TONGUE EVERY 8 HOURS NEEDED FOR NAUSEA AND VOMITING. 20 Tablet 1 3 Active Amitriptyline HCl 10 MG Oral Tablet (Elavil) Take 3 Tablets by mouth at bedtime. 90 Tablet 3 3 01/05/20 23 Discontinu ed(Refill) Ondansetron 8 MG Oral Tablet Disintegrating (Zofran) DISSOLVE 1 TABLET ON TONGUE EVERY 8 HOURS NEEDED FOR NAUSEA AND VOMITING. 20 Tablet 1 3 01/05/20 23 Discontinu ed(Refill) Hospital, Clinic, or Other Facility Administered Medication Ordered Dose Route Frequency Start Date End Date Status Albuterol Sulfate (Proventil) (2.5 MG/3ML) 0.083% inhalation solution 2.5 mgIndications:Cigarette smoker,Hypoxia,Pneumoni a due to infectious organism, unspecified laterality, unspecified part of lung,Vapes non-nicotine containing substance 2.5 mg NEBULIZER ONCE PRN 03/22/2022 03/22/2023 Active documented as of this encounter (statuses as of 01/06/2023) Active Problems Problem Noted Date Diagnosed Date [...] as of this encounter (statuses as of 01/06/2023) Immunizations Name Administration Dates Next Due COVID-19 [...] encounter Miscellaneous Notes * Telephone Encounter - Tom Cleaning MD - 01/06/2023 8:49 AM EST Signed Prescriptions: Disp Refills Amitriptyline HCl 10 MG Oral Tablet (Elavi*90 Tab*3 Sig: Take 3 Tablets by mouth at bedtime. Authorizing Provider: TOM CLEANING Ondansetron 8 MG Oral Tablet Disintegratin*20 Tab*1 Sig: DISSOLVE 1 TABLET ON TONGUE EVERY 8 HOURS NEEDED FOR NAUSEA AND VOMITING. Authorizing Provider: TOM CLEANING ---- * Telephone Encounter - Néstor Fairbanks [facility] - 01/04/2023 3:23 PM ESTPending Prescriptions: Disp Refills Amitriptyline HCl 10 MG Oral Tablet (Elavi*90 Tab*3 Sig: Take 3 Tablets by mouth at bedtime. Ondansetron 8 MG Oral Tablet Disintegratin*20 Tab*1 Sig: DISSOLVE 1 TABLET ON TONGUE EVERY 8 HOURS NEEDED FOR NAUSEA AND VOMITING. * Telephone Encounter - Néstor Fairbanks RPh - 01/04/2023 3:23 PM EST Pending Prescriptions: Disp Refills Amitriptyline HCl 10 MG Oral Tablet (Elavi*90 Tab*3 Sig: Take 3 Tablets by mouth at bedtime. Ondansetron 8 MG Oral Tablet Disintegratin*20 Tab*1 Sig: DISSOLVE 1 TABLET ON TONGUE EVERY 8 HOURS NEEDED FOR NAUSEA AND VOMITING. Last Visit: 03/22/2022 (in office), 09/07/2022 (telemedicine) Next Visit: 01/21/2023 If no future appointments scheduled, and last appointment is greater than a year ago, please schedule patient for a follow-up appointment Last date the medication was ordered: 09-04-22, 11-01-22 Pharmacy: [facility] [id number] [place] [address] Is this request for a controlled substance?No Urine Drug Screen: Results for orders placed or performed in visit on 08/03/21 TOXICOLOGY, URINE SCREEN W/O CONFIRMATION Result Value Amphetamine Negative Benzodiazepines Negative Cannabinoids Negative Cocaine Metabolite Negative Fentanyl Negative Hydrocodone / Hydromorphone Negative Methadone Metabolite Negative Morphine / Codeine Negative Oxycodone / Oxymorphone Negative Narrative Cutoff Concentrations: Drug Level Amphetamines 500 ng/mL Benzodiazepines 100 ng/mL Cannabinoids 50 ng/mL Cocaine Metabolite 150 ng/mL Fentanyl 1 ng/mL Hydrocodone / Hydromorphone 300 ng/mL Methadone Metabolite 100 ng/mL Morphine / Codeine 300 ng/mL Oxycodone / Oxymorphone 100 ng/mL Screening results are presumptive and can only be used for medical purposes. Confirmatory testing is available upon request. Patient Phone Numbers Labs: Lab Results Component Value Date/Time CREAT 0.9 08/03/2021 09:22 AM CREAT 0.82 03/25/2020 01:49 PM CREAT 0.7 07/17/2015 08:53 AM POTASSIUM 4.5 08/03/2021 09:22 AM POTASSIUM 4.0 03/25/2020 01:49 PM POTASSIUM 4.4 07/17/2015 08:53 AM TSH 2.00 03/28/2019 02:11 PM LDLDIRECT 69 08/03/2021 09:22 AM ALT 23 01/16/2021 08:41 AM ALT 17 07/17/2015 08:53 AM HGBA1C 7.4 (H) 07/19/2022 12:47 PM HGBA1C 7.7 01/16/2021 08:41 AM documented in this encounter Plan of Treatment Upcoming Encounters Date Type Department Care Team (Late st Contact Info) Description 01/21/2023 3:20 PM EST Office Visit [facility] [address] [place] [address] Tom Cleaning MD [address] [place] [address] Health Maintenance Due Date Last Done Comments DISCUSS TOBACCO CESSATION (REFER TO SMARTSET #1615) 1970 Hepatitis B (1 of 3 - 3-dose series) 1968 Albumin/Creatinine Ratio 1986 Diabetic Foot Exam 1986 Cologuard 2013 Fecal Occult Blood Test 2013 Sigmoidoscopy 2013 Zoster Vaccines (1 of 2) 2018 Mammogram 01/22/2022 01/22/2021, 01/07, 01/22/2021, Additional history exists Diabetic Eye Exam 02/25/2022 02/25/2021 Depression Screening 07/28/2022 07/28/2021 GFR 08/03/2022 08/03/2021, 07/08, 06/18/2021, Additional history exists COVID-19 Vaccine (4 - 2022-24 season) 2022 01/14/2021, 05/22/2020, 05/22/2020, [...] 05/27/2015 LUNG CANCER SCREENING - USE SMARTSET 12889 Completed 03/12/2022 GARDASIL-HPV IMMUNIZATION SERIES Aged Out No longer eligible based on patient's age to complete this topic MENINGOCOCCAL (MENACTRA/MENVEO) Aged Out No longer eligible based on patient's age to complete this topic documented as of this encounter Medical Devices Not on filedocumented as of this encounter Care Teams Finance Mgr Relationship Specialty Start Date End Date Tom Cleaning MD [address] [facility] [place] [address] PCP - General Family Medicine 07/28/21 documented as of this encounter
--- OUTSIDE RECORDS SUMMARY | 2023-01-23 15:17 | External Medical Summary | Summary of Care ---
Author Name Unknown Organization [facility] Address [address] [place] [address] Phone [phone] Care Team Providers Care Sergeant Of Officers Name Role Phone Tom Cleaning MD Primary Care Provid er Reason for Visit * Reason Onset Date Comments Medication Refill 11/02/2022 Encounter Details Date Type Department Care Team Description 11/02/2022 Refill [facility] [id number] [place] [address] Tom Cleaning MD [address] [place] [address] Allergies Active Allergy Reactions Severity Noted Date Comments Chlorpheniramine-Codeine 11/03/2021 ADDICTIVE FOR PT Metformin Nausea/vomiting High 11/22/2012 Other reaction(s): Nausea, Nausea/Vomiting documented as of this encounter (statuses as of 11/03/2022) Medications Medication Sig Dispensed Refills Start Date End Date Status Acxvegwagp-DRPN-Yhi feine 50-325-40 MG Oral Capsule Take by [...] THE MORNING 90 Tablet 1 3 Active Gabapentin 100 MG Oral Capsule (Neurontin)Indicati ons:Persistent insomnia TAKE ONE CAPSULE BY MOUTH NIGHTLY AT BEDTIME Strength: 100 mg 30 Capsule 5 3 Active Trulicity 3 MG/0.5ML Subcutaneous Solution Pen-injector (Dulaglutide)Indica tions:Type 2 diabetes mellitus with hemoglobin A1c goal of less than 7.0% ([facility]),Ischemic heart disease Inject 3 mg under the skin once a week. 2 mL 5 3 Active Amitriptyline HCl 10 MG Oral Tablet (Elavil) Take 3 Tablets by mouth at bedtime. 90 Tablet 3 3 Active Simvastatin 80 MG Oral Tablet (Zocor) 0 Activ e Citalopram Hydrobromide 10 MG Oral Tablet (CeleXA) Take 1 Tablet by mouth in the morning. 30 Tablet 5 3 Active LORazepam 0.5 MG Oral Tablet (Ativan)Indications :Other situational type phobia Take 1 Tablet by mouth every 8 hours as needed for Anxiety. 30 Tablet 0 3 Active Ondansetron 8 MG Oral Tablet Disintegrating (Zofran) DISSOLVE 1 TABLET ON TONGUE EVERY 8 HOURS NEEDED FOR NAUSEA AND VOMITING. 20 Tablet 1 3 Active FreeStyle Marcela 14 Day Sensor Use as directed. Use as directed. 3 Each 5 3 Active Eszopiclone 3 MG Oral Tablet Take 1 Tablet by mouth at bedtime. 30 Tablet 2 3 Active Eszopiclone 3 MG Oral Tablet Take 1 Tablet by mouth at bedtime. 30 Tablet 2 3 11/03/19 23 Discontinu ed(Refill) Hospital, Clinic, or Other Facility Administered Medication Ordered Dose Route Frequency Start Date End Date Status Albuterol Sulfate (Proventil) (2.5 MG/3ML) 0.083% inhalation solution 2.5 mgIndications:Cigarette smoker,Hypoxia,Pneumoni a due to infectious organism, unspecified laterality, unspecified part of lung,Vapes non-nicotine containing substance 2.5 mg NEBULIZER ONCE PRN 03/22/2022 03/22/2023 Active documented as of this encounter (statuses as of 11/03/2022) Active Problems Problem Noted Date Smokes 1 [...] as of this encounter (statuses as of 11/03/2022) Immunizations Name Administration Dates Next Due COVID-19 [...] Telephone Encounter - Tom Cleaning MD - 11/03/2022 3:40 PM EDT Signed Prescriptions: Disp Refills Eszopiclone 3 MG Oral Tablet 30 Tab*2 Sig: Take 1 Tablet by mouth at bedtime. Authorizing Provider: TOM CLEANING * Telephone Encounter - Néstor Fairbanks [facility] - 11/03/2022 9:54 AM EDTPending Prescriptions: Disp Refills Eszopiclone 3 MG Oral Tablet 30 Tab*2 Sig: Take 1 Tablet by mouth at bedtime. * Telephone Encounter - Néstor Fairbanks RP - 11/03/2022 9:54 AM EDT I have reviewed the patients controlled substance dispensing history in the Prescription Drug Monitoring Program in compliance with the [facility] regulations before prescribing a controlled substance. PDMP checked on 11/03/2022. Pending Prescriptions: Disp Refills Eszopiclone 3 MG Oral Tablet 30 Tab*2 Sig: Take 1 Tablet by mouth at bedtime. Last Visit: 03/22/2022 (in office), 09/07/2022 (telemedicine) Next Visit: 01/21/2023 Date medication was last filled: 10-05-22 Date medication is due for refill: 11-03-22 Pharmacy: [facility] [id number] [place] [address] Is this request for a controlled substance? and Urine Drug Screen Not completed Toxicology results: Results for orders placed or performed in [...] purposes. Confirmatory testing is available upon request. Please approve if appropriate. Thanks, Néstor Fairbanks, Beth.Ph. Clinical Pharmacist [facility] [phone] 11/03/2022,9:54 AM documented in this encounter Plan of Treatment Upcoming Encounters Date Type Specialty Care Team Description 01/21/2023 Office Visit Family Medicine Tom Cleaning [facility] [address] [facility] [place] [address] Health Maintenance Due Date Last Done Comments DISCUSS TOBACCO CESSATION (REFER TO SMARTSET #3063) 1970 Hepatitis B (1 of 3 - [...] 05/27/2015 LUNG CANCER SCREENING - USE SMARTSET 61668 Completed 03/12/2022 GARDASIL-HPV IMMUNIZATION SERIES Aged Out No longer eligible based on patient's age to complete this topic MENINGOCOCCAL (MENACTRA/MENVEO) Aged Out No longer eligible based on patient's age to complete this topic documented as of this encounter Medical Devices Not on filedocumented as of this encounter Care Teams Sergeant Of Officers Relationship Specialty Start Date End Date Tom Cleaning MD [address] [place] [address] PCP - General Family Medicine 07/28/21 documented as of this encounter
--- OUTSIDE RECORDS SUMMARY | 2023-01-23 15:17 | External Medical Summary | Summary of Care ---
Author Name Unknown Organization [facility] Address [address] [place] [address] Phone [phone] Care Team Providers Care Mrb Engineer Name Role Phone Tom Cleaning MD Primary Care Provid er Reason for Visit * Reason Onset Date Comments Medication Refill 10/31/2022 Encounter Details Date Type Department Care Team Description 10/31/2022 Refill [facility] [address] [place] [address] Tom Cleaning MD [address] [place] [address] Allergies Active Allergy Reactions Severity Noted Date Comments Chlorpheniramine-Codeine 11/03/2021 ADDICTIVE FOR PT Metformin Nausea/vomiting High 11/22/2012 Other reaction(s): Nausea, Nausea/Vomiting documented as of this encounter (statuses as of 11/01/2022) Medications Medication Sig Dispensed Refills Start Date End Date Status Dcmldkwbrk-CTQP-Zvk feine 50-325-40 MG Oral Capsule Take by [...] hemoglobin A1c goal of less than 7.0% ([facility]),Ischemic heart disease Inject 3 mg under the skin once a week. 2 mL 5 3 Active Eszopiclone 3 MG Oral Tablet Take 1 Tablet by mouth at bedtime. 30 Tablet 2 3 Active Amitriptyline HCl 10 MG Oral [...] as directed. 3 Each 5 3 Active Ondansetron 8 MG Oral Tablet Disintegrating (Zofran) DISSOLVE 1 TABLET ON TONGUE EVERY 8 HOURS NEEDED FOR NAUSEA AND VOMITING. 20 Tablet 1 3 11/01/19 23 Discontinu ed(Refill) FreeStyle Marcela 14 Day Sensor USE DIRECTED 3 Each 0 3 11/01/19 Discontinu ed(Refill) Hospital, Clinic, or Other Facility Administered Medication Ordered Dose Route Frequency Start Date End Date Status Albuterol Sulfate (Proventil) (2.5 MG/3ML) 0.083% inhalation solution 2.5 mgIndications:Cigarette smoker,Hypoxia,Pneumoni a due to infectious organism, unspecified laterality, unspecified part of lung,Vapes non-nicotine containing substance 2.5 mg NEBULIZER ONCE PRN 03/22/2022 03/22/2023 Active documented as of this encounter (statuses as of 11/01/2022) Active Problems Problem Noted Date Smokes 1 [...] as of this encounter (statuses as of 11/01/2022) Immunizations Name Administration Dates Next Due COVID-19 [...] Telephone Encounter - Tom Cleaning MD - 11/01/2022 4:48 PM EDT Signed Prescriptions: Disp Refills Ondansetron 8 MG Oral Tablet Disintegratin*20 Tab*1 Sig: DISSOLVE 1 TABLET ON TONGUE EVERY 8 HOURS NEEDED FOR NAUSEA AND VOMITING. Authorizing Provider: TOM CLEANING FreeStyle Marcela 14 Day Sensor 3 Each 5 Sig: Use as directed. Use as directed. Authorizing Provider: TOM CLEANING Ordering U ser: GLADYS CAMPBELL * Telephone Encounter - Gladys Campbell [facility] - 11/01/2022 3:29 PM EDTPending Prescriptions: Disp Refills Ondansetron 8 MG Oral Tablet Disintegratin*20 Tab*1 Sig: DISSOLVE 1 TABLET ON TONGUE EVERY 8 HOURS NEEDED FOR NAUSEA AND VOMITING. Signed Prescriptions: Disp Refills FreeStyle Marcela 14 Day Sensor 3 Each 5 Sig: Use as directed. Use as directed. Authorizing Provider: TOM CLEANING [facility] Ordering User: GLADYS CAMPBELL * Telephone Encounter - Gladys Campbell RP - 11/01/2022 3:19 PM EDT Pending Prescriptions: Disp Refills Ondansetron 8 MG Oral Tablet Disintegrati*20 Tab*1 Sig: DISSOLVE 1 TABLET ON TONGUE EVERY 8 HOURS NEEDED FOR NAUSEA AND VOMITING. Signed Prescriptions: Disp Refills FreeStyle Marcela 14 Day Sensor 3 Each 5 Sig: Use as directed. Use as directed. Authorizing Provider: TOM CLEANING Ordering User: GLADYS CAMPBELL Last Visit: 03/22/2022 (in office), 09/07/2022 (telemedicine) Next Visit: 01/21/2023 If no future appointments scheduled, and last appointment is greater than a year ago, please schedule patient for a follow-up appointment Last date the medication was ordered: 09/04/22 Is this request for a controlled substance?No [...] is available upon request. Patient Phone Numbers mobile [phone] Labs: Lab Results Component Value Date/Time CREAT [...] Family Medicine Tom Cleaning MD [address] [place] [address] Health Maintenance Due Date Last Done Comments DISCUSS TOBACCO CESSATION (REFER TO SMARTSET #3621) 1970 Hepatitis B (1 of 3 - [...] 08/03/2021 LUNG CANCER SCREENING - USE SMARTSET 90770 Completed 03/12/2022 GARDASIL-HPV IMMUNIZATION SERIES Aged Out No longer eligible based on patient's age to complete this topic MENINGOCOCCAL (MENACTRA/MENVEO) Aged Out No longer eligible based on patient's age to complete this topic documented as of this encounter Medical Devices Not on filedocumented as of this encounter Care Teams Mrb Engineer Relationship Specialty Start Date End Date Tom Cleaning MD [address] [place] [address] PCP - General Family Medicine 07/28/21 documented as of this encounter
--- OUTSIDE RECORDS SUMMARY | 2023-01-23 15:17 | External Medical Summary | Summary of Care ---
Author Name Unknown Organization [facility] Address [address] [place] [address] Phone [phone] Care Team Providers Care Baffle Installer Name Role Phone Tom Cleaning MD Primary Care Provid er Reason for Visit * Reason Onset Date Comments Medication Refill 11/17/2022 Encounter Details Date Type Department Care Team Description 11/17/2022 Refill [facility] [address] [place] [address] Tom Cleaning MD [address] [place] [address] Anxiety*; Other situational type phobia Allergies Active Allergy Reactions Severity Noted Date Comments Chlorpheniramine-Codeine 11/03/2021 ADDICTIVE FOR PT Metformin Nausea/vomiting High 11/22/2012 Other reaction(s): Nausea, Nausea/Vomiting documented as of this encounter (statuses as of 11/19/2022) Medications Medication Sig Dispensed Refills Start Date End Date Status Icjrqxbedk-UHJH-Lgf feine 50-325-40 MG Oral Capsule Take by [...] hemoglobin A1c goal of less than 7.0% ([facility]),Ischemic heart disease Inject 3 mg under the [...] the morning. 30 Tablet 5 3 Active Ondansetron 8 MG Oral [...] for Anxiety. 30 Tablet 0 3 Active LORazepam 0.5 MG Oral Tablet (Ativan)Indications :Other situational type phobia Take 1 Tablet by mouth every 8 hours as needed for Anxiety. 30 Tablet 0 3 11/18/19 23 Discontinu ed(Refill) Hospital, Clinic, or Other Facility Administered Medication Ordered Dose Route Frequency Start Date End Date Status Albuterol Sulfate (Proventil) (2.5 MG/3ML) 0.083% inhalation solution 2.5 mgIndications:Cigarette smoker,Hypoxia,Pneumoni a due to infectious organism, unspecified laterality, unspecified part of lung,Vapes non-nicotine containing substance 2.5 mg NEBULIZER ONCE PRN 03/22/2022 03/22/2023 Active documented as of this encounter (statuses as of 11/19/2022) Active Problems Problem Noted Date Smokes 1 [...] as of this encounter (statuses as of 11/19/2022) Immunizations Name Administration Dates Next Due COVID-19 [...] Telephone Encounter - Tom Cleaning MD - 11/19/2022 7:51 AM EDT Signed Prescriptions: Disp Refills LORazepam 0.5 MG Oral Tablet (Ativan) 30 Tab*0 Sig: Take 1 Tablet by mouth every 8 hours as needed for Anxiety.Authorizing Provider: TOM CLEANING------- * Telephone Encounter - Jack Eason RPh - 11/18/2022 3:59 PM EDTPending Prescriptions: Disp Refills LORazepam 0.5 MG Oral Tablet (Ativan) 30 Tab*0 Sig: Take 1 Tablet by mouth every 8 hours as needed for Anxiety. * Telephone Encounter - Jack Eason [facility] - 11/18/2022 3:58 PM EDT I have reviewed the patients controlled substance dispensing history in the Prescription Drug Monitoring Program in compliance with the [facility] regulations before prescribing a controlled substance. PDMP checked on 11/18/2022. Pending Prescriptions: Disp Refills LORazepam 0.5 MG Oral Tablet (Ativan) 30 Tab*0 Sig: Take 1 Tablet by mouth every 8 hours as needed for Anxiety. Last Visit: 03/22/2022 (in office), 09/07/2022 (telemedicine) Next Visit: 01/21/2023 Date medication was last filled: 10/14/22 Date medication is due for refill: 10/23/22 [id number] [facility] Is this request for a controlled substance? Yes and Urine Drug Screen Not completed Toxicology [...] available upon request. Please approve if appropriate. Thank You, Jack Alcantara [facility] Clinical Pharmacist [facility] ([facility]) (formerly Telepharmacy) 11/18/2022, 3:58 PM documented in this encounter Plan of Treatment Upcoming Encounters Date Type Specialty Care Team Description 01/21/2023 Office Visit Family Medicine Tom Cleaning MD [address] [place], [place] [id number] Health Maintenance Due Date Last Done Comments DISCUSS TOBACCO CESSATION (REFER TO SMARTSET #2327) 1970 Hepatitis B (1 of 3 - [...] 05/27/2015 LUNG CANCER SCREENING - USE SMARTSET 92434 Completed 03/12/2022 GARDASIL-HPV IMMUNIZATION SERIES Aged Out No longer eligible based on patient's age to complete this topic MENINGOCOCCAL (MENACTRA/MENVEO) Aged Out No longer eligible based on patient's age to complete this topic documented as of this encounter Medical Devices Not on filedocumented as of this encounter Visit Diagnoses Diagnosis Anxiety- Primary Anxiety state, unspecified Other situational type phobia documented in this encounter Care Teams Baffle Installer Relationship Specialty Start Date End Date Tom Cleaning MD [address] [address] PCP - General Family Medicine 07/28/21 documented as of this encounter
--- OUTSIDE RECORDS SUMMARY | 2023-01-23 15:17 | External Medical Summary | Summary of Care ---
Author Name Unknown Organization [facility] Address [address] [place] [address] Phone [phone] Care Team Providers Care Job Developer For Deaf Adults Name Role Phone Tom Cleaning MD Primary Care Provid er Reason for Visit * Reason Comments eRx-Medication Refill Encounter Details Date Type Department Care Team (Late st Contact Info) Description 12/23/2022 Refill [place] [address] [place] [address] Tom Cleaning MD [address] [place] [address] Persistent insomnia Allergies Active Allergy Reactions Criticality Noted Date Comments Chlorpheniramine-Codeine 11/03/2021 ADDICTIVE FOR PT Metformin Nausea/vomiting High 11/22/2012 Other reaction(s): Nausea, Nausea/Vomiting documented as of this encounter (statuses as of 12/23/2022) Medications Medication Sig Dispensed Refills Start Date End Date Status Zpiraoazxs-TYEC-Nb ffeine 50-325-40 MG Oral Capsule Take by [...] hemoglobin A1c goal of less than 7.0% ([facility]),Ischemic heart disease Inject 3 mg under [...] 3 Active LORazepam 0.5 MG Oral Tablet (Ativan)Indication s:Other situational type phobia,Anxiety Take 1 Tablet by mouth every 8 hours as needed for Anxiety. 30 Tablet 0 3 Active NovoLOG FlexPen 100 UNIT/ML Subcutaneous Solution Pen-injector (insulin aspart) INJECT 7 UNITS UNDER THE SKIN AFTER EACH MEAL 15 mL 2 3 Active Gabapentin 100 MG Oral Capsule (Neurontin)Indicat ions:Persistent insomnia TAKE 1 CAPSULE BY MOUTH AT BEDTIME 30 Capsule 0 3 Active Gabapentin 100 MG Oral Capsule (Neurontin)Indicat ions:Persistent insomnia TAKE ONE CAPSULE BY MOUTH NIGHTLY AT BEDTIME Strength: 100 mg 30 Capsule 5 3 023 Discontinued Hospital, Clinic, or Other Facility Administered Medication Ordered Dose Route Frequency Start Date End Date Status Albuterol Sulfate (Proventil) (2.5 MG/3ML) 0.083% inhalation solution 2.5 mgIndications:Cigarette smoker,Hypoxia,Pneumoni a due to infectious organism, unspecified laterality, unspecified part of lung,Vapes non-nicotine containing substance 2.5 mg NEBULIZER ONCE PRN 03/22/2022 03/22/2023 Active documented as of this encounter (statuses as of 12/23/2022) Active Problems Problem Noted Date Diagnosed Date [...] as of this encounter (statuses as of 12/23/2022) Immunizations Name Administration Dates Next Due COVID-19 [...] Telephone Encounter - Tom Cleaning MD - 12/23/2022 6:30 PM EST Signed Prescriptions: Disp Refills Gabapentin 100 MG Oral Capsule (Neurontin) 30 Cap*0 Sig: TAKE 1 CAPSULE BY MOUTH AT BEDTIME Authorizing Provider: TOM CLEANING * Telephone Encounter - Evelyn Lambert LPN - 12/23/2022 2:41 PM ESTPending Prescriptions: Disp Refills Gabapentin 100 MG Oral Capsule [Pharmacy M*30 Cap*0 Sig: TAKE 1 CAPSULE BY MOUTH AT BEDTIME * Telephone Encounter - Nerissa Abdulvannesa - 12/23/2022 1:09 PM ESTPending Prescriptions: Disp Refills Gabapentin 100 MG Oral Capsule [Pharmacy M*30 Cap*0 Sig: TAKE 1CAPSULE BY MOUTH AT BEDTIME documented in this encounter Plan of Treatment Upcoming Encounters Date Type Department Care Team (Late st Contact Info) Description 01/21/2023 3:20 PM EST Office Visit [facility] [address] [place] [address] Tom Cleaning MD [address] [place] [address] Health Maintenance Due Date Last Done Comments DISCUSS TOBACCO CESSATION (REFER TO SMARTSET #9288) 1970 Hepatitis B (1 of 3 - 3-dose series) 1968 Albumin/Creatinine Ratio 1986 Diabetic Foot Exam 1986 Cologuard 2013 Fecal Occult Blood Test 2013 Sigmoidoscopy 2013 Zoster Vaccines (1 of 2) 2018 Mammogram 01/22/2022 01/22/2021, 01/07, 01/22/2021, Additional history exists Diabetic Eye Exam 02/25/2022 02/25/2021 Depression Screening 07/28/2022 07/28/2021 GFR 08/03/2022 08/03/2021, 07/08, 06/18/2021, Additional history exists COVID-19 Vaccine ( season) 2022 01/14/2021, 05/22/2020, 05/22/2020, Additional history [...] 05/27/2015 LUNG CANCER SCREENING - USE SMARTSET 76029 Completed 03/12/2022 GARDASIL-HPV IMMUNIZATION SERIES Aged Out No longer eligible based on patient's age to complete this topic MENINGOCOCCAL (MENACTRA/MENVEO) Aged Out No longer eligible based on patient's age to complete this topic documented as of this encounter Medical Devices Not on filedocumented as of this encounter Visit Diagnoses Diagnosis Persistent insomnia Persistent disorder of initiating or maintaining sleep documented in this encounter Care Teams Job Developer For Deaf Adults Relationship Specialty Start Date End Date Tom Cleaning MD [address] [place] [address] PCP - General Family Medicine 07/28/21 documented as of this encounter
--- OUTSIDE RECORDS SUMMARY | 2023-01-23 15:17 | External Medical Summary | Summary of Care ---
Author Name Unknown Organization [facility] Address [address] [facility] [place] [address] Phone [phone] Care Team Providers Care Tea Bag Machine Tender Name Role Phone Gill Francisco MD Primary Care Provid er Reason for Visit * Reason Comments Follow Up Encounter Details Date Type Department Care Team Description 09/07/2022 [facility] [address] [place] [address] Gill Francisco MD [address] [place] [address] Anxiety* Allergies Active Allergy Reactions Severity Noted Date Comments Chlorpheniramine-Codeine 11/03/2021 ADDICTIVE FOR PT Metformin Nausea/vomiting High 11/22/2012 Other reaction(s): Nausea, Nausea/Vomiting documented as of this encounter (statuses as of 09/07/2022) Medications Medication Sig Dispensed Refills Start Date End Date Status Ipmbboyled-VOZG-Qhg feine 50-325-40 MG Oral Capsule Take by [...] under the skin 1 mg . 0 06/04/2021 Active Triamcinolone Acetonide 0.1 % External Cream (Aristocort) triamcinolone acetonide 0.1 % topical cream 0 Active OneTouch Ultra Blue In Vitro Strip (Glucose Blood) OneTouch Ultra Test strips 0 Active Rosuvastatin Calcium 40 MG Oral Tablet (Crestor)Indication s:Dyslipidemia, goal LDL below 70 Take by mouth 1 Tablet in the morning. 90 Tablet 3 11/13/2021 Active NovoLOG FlexPen 100 UNIT/ML Subcutaneous Solution Pen-injector (insulin aspart) INJECT 7 UNITS SUBCUTANEOUSLY AFTER EACH MEAL Strength: 100 UNIT/ML 1 Each 5 01/08/2022 Active buPROPion HCl ER (XL) 150 MG Oral Tablet Extended Release 24 Hour (Wellbutrin XL) Take 1 Tablet by mouth in the morning. 90 Tablet 3 02/22/2022 Active Trulicity 1.5 MG/0.5ML Subcutaneous Solution Pen-injector (Dulaglutide)Indica tions:Type 2 diabetes mellitus with hemoglobin A1c goal of less than 7.0% ([facility]),Ischemic heart disease Inject 1.5 mg under the skin once a week. 2 mL 5 03/07/2022 Active Trulicity 0.75 MG/0.5ML Subcutaneous Solution Pen-injector (Dulaglutide)Indica tions:Type 2 diabetes mellitus with hemoglobin A1c goal of less than 7.0% ([facility]),Ischemic heart disease Inject 0.75 mg under the skin once a week. To be used along with 1.5mg dose for a total of 2.25 mg weekly. 2 mL 5 03/07/2022 Active Benzonatate 100 MG Oral Capsule Take 2 Capsules by mouth 3 times a day as needed for Cough. 30 Capsule 1 03/10/2022 Active Cefdinir 300 MG Oral Capsule (Omnicef) Take 1 Capsule by mouth in the morning and 1 Capsule in the evening. For 5 days. 0 03/14/2022 Active predniSONE 20 MG Oral Tablet (Deltasone) Take 1 Tablet by mouth in the morning. For 3 days. 0 03/14/2022 Active Nicotine 21 MG/24HR Transdermal Patch 24 Hour (Nicoderm CQ) Place 1 Patch topically on the skin daily. 0 03/14/2022 Active Albuterol Sulfate HFA 108 (90 Base) MCG/ACT Inhalation Aerosol Solution Inhale 1 Puff by mouth every 6 hours as needed. 0 03/14/2022 Active BD Pen Needle Clau U/F 32G X 4 MM (Insulin Pen Needle) USE ONE PEN NEEDLE FOR INSULIN THREE TIMES A DAY BEFORE MEALS. 300 Each 3 03/30/2022 Active Famotidine 40 MG Oral Tablet (Pepcid) TAKE ONE TABLET BY MOUTH IN THE MORNING 90 Tablet 1 05/31/2022 Active FreeStyle Marcela 14 Day Sensor Use as directed. 2 Each 3 06/08/2022 Active Gabapentin 100 MG Oral Capsule (Neurontin)Indicati ons:Persistent insomnia TAKE ONE CAPSULE BY MOUTH NIGHTLY AT BEDTIME Strength: 100 mg 30 Capsule 5 06/25/2022 Active Trulicity 3 MG/0.5ML Subcutaneous Solution Pen-injector (Dulaglutide)Indica tions:Type 2 diabetes mellitus with hemoglobin A1c goal of less than 7.0% ([facility]),Ischemic heart disease Inject 3 mg under the skin once a week. 2 mL 5 07/26/2022 Active Eszopiclone 3 MG Oral Tablet Take 1 Tablet by mouth at bedtime. 30 Tablet 2 08/09/2022 Active LORazepam 0.5 MG Oral Tablet (Ativan)Indications :Other situational type phobia Take 1 Tablet by mouth every 8 hours as needed for Anxiety. 30 Tablet 0 09/07/2022 Active Amitriptyline HCl 10 MG Oral Tablet (Elavil) Take 3 Tablets by mouth at bedtime. 90 Tablet 3 09/04/2022 Active Ondansetron 8 MG Oral Tablet Disintegrating (Zofran) DISSOLVE 1 TABLET ON TONGUE EVERY 8 HOURS NEEDED FOR NAUSEA AND VOMITING. 20 Tablet 1 09/04/2022 Active Simvastatin 80 MG Oral Tablet (Zocor) 0 Activ e Escitalopram Oxalate 10 MG Oral Tablet (Lexapro)Indication s:Anxiety Take 1 tab daily for 7 days then increase to 2 tabs daily. 60 Tablet 1 09/07/2022 Active Hospital, Clinic, or Other Facility Administered Medication Ordered Dose Route Frequency Start Date End Date Status Albuterol Sulfate (Proventil) (2.5 MG/3ML) 0.083% inhalation solution 2.5 mgIndications:Cigarette smoker,Hypoxia,Pneumoni a due to infectious organism, unspecified laterality, unspecified part of lung,Vapes non-nicotine containing substance 2.5 mg NEBULIZER ONCE PRN 03/22/2022 03/22/2023 Active documented as of this encounter (statuses as of 09/07/2022) Active Problems Problem Noted Date Smokes 1 [...] as of this encounter (statuses as of 09/07/2022) Immunizations Name Administration Dates Next Due COVID-19 [...] on file documented as of this encounter Progress Notes * Gill Francisco MD - 09/07/2022 6:42 PM EDT ASSESSMENT / PLAN: Emmy Oh is a 51 year old female with PMHx T2DM on novolog and trulicity / anxiety on supervisor intermediates BZ / insomnia on lunesta - here for f/u Anxiety Not well controlled on ativan prn and wellbutrin Advised to not over use ativan as can cause rebound anxiety Would like to add lexapro- instructed on use MyG check in 1 month Anxiety (Primary) - Escitalopram Oxalate 10 MG Oral Tablet (Lexapro); Take 1 tab daily for 7 days then increase to 2 tabs daily. Subjective: Emmy Oh is a 51 year old female. No chief complaint on file. Patient location: HOME. I was in a hospital or clinic location. After connecting through [employer],patient was verified with two unique identifiers. Patient (or authorized legal retail customer service representative) was then informed that this was a Telemedicine visit and being conducted confidentially over secure lines. Methods to assure confidentiality were taken. Patient acknowledged consent and understanding of pr ivacy and security of the Telemedicine visit. The patient agreed to participate. Scheduling Notes: Anxiety and current mental state due to high stress situations. Arrival Time: 6:22 PM Switched to telephonic due to connectivity issues After connecting to the patient via telephone, the patient was identified by name and date of . Patient was then informed that this was a telephone call only visit. The patient agreed to participate. Visit Disposition: Routine follow-up Total call duration was 21 minutes. HPI: Here via video to review med mgt of anxiety. Feeling overwhelmed. Stuff going on with - recent health scare and extensive hospitalization. Has been increasing ativan use Anxiety , feeling overwhelmed Has not sought counseling but is considering it Patient Active Problem List Diagnosis Code Prolonged PTT (partial thromboplastin time) R79.1 Type 2 diabetes mellitus with hemoglobin A1c goal of less than 7.0% ([facility]) E11.9 Persistent insomnia G47.00 Medical marijuana use Z79.899 History of tobacco abuse Z87.891 Long-term current use of benzodiazepine Z79.899 History of narcotic addiction ([facility]) F11.21 Current use of insulin ([facility]) Z79.4 MEDICATION USE AGREEMENT HF8544 Vitamin D deficiency E55.9 RLS (restless legs syndrome) G25.81 Diverticulitis K57.92 Dysmenorrhea N94.6 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 60 Tablet 1 Wljonajprk-AMKW-Yhghpldi 50-325-40 MG Oral Capsule Take by mouth 1 Capsule every 4 hours as needed . Nitroglycerin 0.4 MG Sublingual Tablet Sublingual (Nitrostat) Place under the tongue 0.4 mg every 5 minutes as needed for Pain, Chest. Aspirin 81 MG Oral Tablet Delayed Release Take by mouth 81 mg in the morning. D3 2000 50 MCG (2000 UT) Oral Capsule (Cholecalciferol) Take by mouth 2,000 Units daily . Omeprazole 20 MG Oral Capsule Delayed Release (PriLOSEC) Take by mouth 20 mg in the morning. Glucagon 1 MG/0.2ML Subcutaneous Solution Auto-injector Inject under the skin 1 mg . Triamcinolone Acetonide 0.1 % External Cream (Aristocort) triamcinolone acetonide 0.1 % topicalcream OneTouch Ultra Blue In Vitro Strip (Glucose Blood) OneTouch Ultra Test strips Rosuvastatin Calcium 40 MG Oral Tablet (Crestor) Take by mouth 1 Tablet in the morning. 90 Tablet 3 NovoLOG FlexPen 100 UNIT/ML Subcutaneous Solution Pen-injector (insulin aspart) INJECT 7 UNITS SUBCUTANEOUSLY AFTER EACH MEAL Strength: 100 UNIT/ML 1 Each 5 buPROPion HCl ER (XL) 150 MG Oral Tablet Extended Release 24 Hour (Wellbutrin XL) Take 1 Tabletby mouth in the morning. 90 Tablet 3 Trulicity 1.5 MG/0.5ML Subcutaneous Solution Pen-injector (Dulaglutide) Inject 1.5 mg under theskin once a week. 2 mL 5 Trulicity 0.75 MG/0.5ML Subcutaneous Solution Pen-injector (Dulaglutide) Inject 0.75 mg under the skin once a week. To be used along with 1.5mg dose for a total of 2.25 mg weekly. 2 mL 5 Benzonatate 100 MG Oral Capsule Take 2 Capsules by mouth 3 times a day as needed for Cough. 30 Capsule 1 Cefdinir 300 MG Oral Capsule (Omnicef) Take 1 Capsule by mouth in the morning and 1 Capsule in the evening. For 5 days. predniSONE 20 MG Oral Tablet (Deltasone) Take 1 Tablet by mouth in the morning. For 3 days. Nicotine 21 MG/24HR Transdermal Patch 24 Hour (Nicoderm CQ) Place 1 Patch topically on the skindaily. Albuterol Sulfate HFA 108 (90 Base) MCG/ACT Inhalation Aerosol Solution Inhale 1 Puff by mouth every 6 hours as needed. BD Pen Needle Clau U/F 32G X 4 MM (Insulin Pen Needle) USE ONE PEN NEEDLE FOR INSULIN THREE TIMES A DAY BEFORE MEALS. 300 Each 3 Famotidine 40 MG Oral Tablet (Pepcid) TAKE ONE TABLET BY MOUTH IN THE MORNING 90 Tablet 1 FreeStyle Marcela 14 Day Sensor Use as directed. 2 Each 3 Gabapentin 100 MG Oral Capsule (Neurontin) TAKE ONE CAPSULE BY MOUTH NIGHTLY AT BEDTIME Strength: 100 mg 30 Capsule 5 Trulicity 3 MG/0.5ML Subcutaneous Solution Pen-injector (Dulaglutide) Inject 3 mg under the skin once a week. 2 mL 5 Eszopiclone 3 MG Oral Tablet Take 1 Tablet by mouth at bedtime. 30 Tablet 2 LORazepam 0.5 MG Oral Tablet (Ativan) Take 1 Tablet by mouth every 8 hours as needed for Anxiety. 30 Tablet 0 Amitriptyline HCl 10 MG Oral Tablet (Elavil) Take 3 Tablets by mouth at bedtime. 90 Tablet 3 Ondansetron 8 MG Oral Tablet Disintegrating (Zofran) DISSOLVE 1 TABLET ON TONGUE EVERY 8 HOURS NEEDED FOR NAUSEA AND VOMITING. 20 Tablet 1 Simvastatin 80 MG Oral Tablet (Zocor) Current Facility-Administered Medications Medication Dose Route Frequency Provider Last Rate Last Admin Albuterol Sulfate (Proventil) (2.5 MG/3ML) 0.083% inhalation solution 2.5 mg 2.5 mg Nebulizer Once PRN Gill Francisco MD Objective: General: No acute distress. Neuro: Alert Pleasant & interactive. Respiratory: Good inspiratory effort, no labored breathing. HEENT: Conjunctivae appear clear. No swelling noted face or lips. Skin: No rash visible on exposed skin areas, normal coloration & appears dry. Psych: Normal affect. Fluent speech. Gill Francisco MD [place] [id number] [facility] [phone] documented in this encounter Plan of Treatment Upcoming Encounters Date Type Specialty Care Team Description 09/21/2022 Appointment Radiology 01/21/2023 Office Visit Family [facility] Gill Francisco MD [address] [place] [address] Health Maintenance Due Date Last Done Comments DISCUSS TOBACCO CESSATION (REFER TO SMARTSET #2342) 1970 Hepatitis B (1 of 3 - [...] 08/03/2021 LUNG CANCER SCREENING - USE SMARTSET 16338 Completed 03/12/2022 GARDASIL-HPV IMMUNIZATION SERIES Aged Out No longer eligible based on patient's age to complete this topic MENINGOCOCCAL (MENACTRA/MENVEO) Aged Out No longer eligible based on patient's age to complete this topic documented as of this encounter Medical Devices Not on filedocumented as of this encounter Visit Diagnoses Diagnosis Anxiety- Primary Anxiety state, unspecified documented in this encounter Care Teams Tea Bag Machine Tender Relationship Specialty Start Date End Date Gill Francisco MD [address] [place] [address] PCP - General Family Medicine 07/28/21 documented as of this encounter
--- OUTSIDE RECORDS SUMMARY | 2023-01-23 15:17 | External Medical Summary | Summary of Care ---
Author Name Unknown Organization [facility] Address [address] [place] [address] Phone [phone] Care Team Providers Care Green Meat Packer Name Role Phone Tom Cleaning MD Primary Care Provid er Reason for Visit * Reason Onset Date Comments Medication Refill 10/11/2022 Encounter Details Date Type Department Care Team Description 10/11/2022 Refill [facility] [address] [place] [address] Tom Cleaning MD [address] [place] [address] Other situational type phobia Allergies Active Allergy Reactions Severity Noted Date Comments Chlorpheniramine-Codeine 11/03/2021 ADDICTIVE FOR PT Metformin Nausea/vomiting High 11/22/2012 Other reaction(s): Nausea, Nausea/Vomiting documented as of this encounter (statuses as of 10/14/2022) Medications Medication Sig Dispensed Refills Start Date End Date Status Eujiaubtht-DTRP-Bgp feine 50-325-40 MG Oral Capsule Take by [...] hemoglobin A1c goal of less than 7.0% ([facility]),Ischemic heart disease Inject 3 mg under the [...] MG Oral Tablet (Zocor) 0 Activ e FreeStyle Marcela 14 Day Sensor USE DIRECTED 3 Each 0 3 Active Citalopram Hydrobromide 10 MG Oral Tablet [...] needed for Anxiety. 30 Tablet 0 3 10/12/19 23 Discontinu ed(Refill) Hospital, Clinic, or Other Facility Administered Medication Ordered Dose Route Frequency Start Date End Date Status Albuterol Sulfate (Proventil) (2.5 MG/3ML) 0.083% inhalation solution 2.5 mgIndications:Cigarette smoker,Hypoxia,Pneumoni a due to infectious organism, unspecified laterality, unspecified part of lung,Vapes non-nicotine containing substance 2.5 mg NEBULIZER ONCE PRN 03/22/2022 03/22/2023 Active documented as of this encounter (statuses as of 10/14/2022) Active Problems Problem Noted Date Smokes 1 [...] as of this encounter (statuses as of 10/14/2022) Immunizations Name Administration Dates Next Due COVID-19 [...] Telephone Encounter - Tom Cleaning MD - 10/14/2022 5:28 PM EDT Signed Prescriptions: Disp Refills LORazepam 0.5 MG Oral Tablet (Ativan) 30 Tab*0 Sig: Take 1 Tablet by mouth every 8 hours as needed for Anxiety. Authorizing Provider: TOM CLEANING * Telephone Encounter - Seun Terrell RPh - 10/12/2022 2:54 PM EDT Pending Prescriptions: Disp Refills LORazepam 0.5 MG Oral Tablet (Ativan) 30 Tab*0 Sig: Take 1 Tablet by mouth every 8 hours as needed for Anxiety. * Telephone Encounter - Seun Terrell RPh - 10/12/2022 2:53 PM EDT I have reviewed the patients controlled substance dispensing history in the Prescription Drug Monitoring Program in compliance with the [facility] regulations before prescribing a controlled substance. PDMP checked on 10/12/2022. Pending Prescriptions: Disp Refills LORazepam 0.5 MG Oral Tablet (Ativan) 30 Tab*0 Sig: Take 1 Tablet by mouth every 8 hours as needed for Anxiety. Last Visit: 03/22/2022 (in office), 09/07/2022 (telemedicine) Next Visit: 01/21/2023 Date medication was last filled: 09/07/22 Date medication is due for refill: 09/17/22 [facility]: [id number] [address] [facility] [address] [place] Is this request for a controlled substance? Yes and Urine Drug Screen Not completed Please approve if appropriate. Thanks, Seun Terrell, PharmD Clinical Pharmacist [facility] ([facility]) (formerly Telepharmacy) [phone] 10/12/2022, 2:53 PM documented in this encounter Plan of Treatment Upcoming Encounters Date Type Specialty Care Team Description 01/21/2023 Office Visit Family Medicine Tom Cleaning MD [address] [place] [address] Health Maintenance Due Date Last Done Comments DISCUSS TOBACCO CESSATION (REFER TO SMARTSET #4292) 1970 Hepatitis B (1 of 3 - [...] 08/03/2021 LUNG CANCER SCREENING - USE SMARTSET 61484 Completed 03/12/2022 GARDASIL-HPV IMMUNIZATION SERIES Aged Out No longer eligible based on patient's age to complete this topic MENINGOCOCCAL (MENACTRA/MENVEO) Aged Out No longer eligible based on patient's age to complete this topic documented as of this encounter Medical Devices Not on filedocumented as of this encounter Visit Diagnoses Diagnosis Other situational type phobia documented in this encounter Care Teams Green Meat Packer Relationship Specialty Start Date End Date Tom Cleaning MD [address] [facility] [place] [address] PCP - General Family Medicine 07/28/21 documented as of this encounter
--- OUTSIDE RECORDS SUMMARY | 2023-01-23 15:18 | External Medical Summary | Summary of Care ---
Author Name Unknown Organization [facility] Address [address] [facility] [address] Phone [phone] Care Team Providers Care Shipping Point Inspector Name Role Phone Gill Francisco MD Primary Care Provid er Encounter Details Date Type Department Care Team Description 09/07/2022 Telephone [facility] [address] [place] [address] Gill Francisco MD [address] [place] [address] Allergies Active Allergy Reactions Severity Noted Date Comments Chlorpheniramine-Codeine 11/03/2021 ADDICTIVE FOR PT Metformin Nausea/vomiting High 11/22/2012 Other reaction(s): Nausea, Nausea/Vomiting documented as of this encounter (statuses as of 09/07/2022) Medications Medication Sig Dispensed Refills Start Date End Date Status Jxtixfrukm-QPDR-Pxx feine 50-325-40 MG Oral Capsule Take by [...] hemoglobin A1c goal of less than 7.0% ([facility]),Ischemic heart disease Inject 3 mg under the [...] MG Oral Tablet (Zocor) 0 Activ e Hospital, Clinic, or Other Facility Administered Medication [...] LNP-s, No Preserve , Sourav-sucrose, Ages 12+ ([facility]) 01/14/2021 DTaP - Dipth/Tet/Acell Pertussis 09/25/2013,1002/2001 Pneumococcal [...] Telephone Encounter - Gill Francisco MD - 09/07/2022 6:50 PM EDT MyG sent documented in this encounter Plan of Treatment Upcoming Encounters Date Type Specialty Care Team Description 09/21/2022 Appointment Radiology 01/21/2023 Office Visit Family Medicine Gill Francisco MD [address] [place] [address] Health Maintenance Due Date Last Done Comments DISCUSS TOBACCO CESSATION (REFER TO SMARTSET #5583) 1970 Hepatitis B (1 of 3 - [...] 08/03/2021 LUNG CANCER SCREENING - USE SMARTSET 42341 Completed 03/12/2022 GARDASIL-HPV IMMUNIZATION SERIES Aged Out No longer eligible based on patient's age to complete this topic MENINGOCOCCAL (MENACTRA/MENVEO) Aged Out No longer eligible based on patient's age to complete this topic documented as of this encounter Medical Devices Not on filedocumented as of this encounter Care Teams Shipping Point Inspector Relationship Specialty Start Date End Date Gill Francisco MD [address], [place] [id number] PCP - General Family Medicine 07/28/21 documented as of this encounter
--- OUTSIDE RECORDS SUMMARY | 2023-01-23 15:18 | External Medical Summary | Summary of Care ---
Author Name Unknown Organization [facility] Address [address] [place] [address] Phone [phone] Care Team Providers Care Furnace Clerk Name Role Phone Gill Francisco MD Primary Care Provid er Encounter Details Date Type Department Care Team Description 08/30/2022 Orders Only Outcomes Research Department [address] [place] [address] Saadia Lowe [employer]RA [employer] Research Other*[id number] Allergies Active Allergy Reactions Severity Noted Date Comments Chlorpheniramine-Codeine 11/03/2021 ADDICTIVE FOR PT Metformin Nausea/vomiting High 11/22/2012 Other reaction(s): Nausea, Nausea/Vomiting documented as of this encounter (statuses as of 08/30/2022) Medications Medication Sig Dispensed Refills Start Date End Date Status Iubuftypxo-DVGR-Zdb feine 50-325-40 MG Oral Capsule Take by [...] BEFORE MEALS. 300 Each 3 03/30/2022 Active Amitriptyline HCl 10 MG Oral Tablet (Elavil) Take 3 Tablets by mouth at bedtime. 90 Tablet 3 05/04/2022 Active Famotidine 40 MG Oral Tablet (Pepcid) TAKE ONE TABLET BY MOUTH IN THE MORNING 90 Tablet 1 05/31/2022 Active FreeStyle Marcela 14 Day Sensor Use as directed. 2 Each 3 06/08/2022 Active Gabapentin 100 MG Oral Capsule (Neurontin)Indicati ons:Persistent insomnia TAKE ONE CAPSULE BY MOUTH NIGHTLY AT BEDTIME Strength: 100 mg 30 Capsule 5 06/25/2022 Active Ondansetron 8 MG Oral Tablet Disintegrating (Zofran) dissolve on tongue.dissolve on tongue. 20 Tablet 1 07/26/2022 Active LORazepam 0.5 MG Oral Tablet (Ativan)Indications :Other situational type phobia Take 1 Tablet by mouth every 8 hours as needed for Anxiety. 30 Tablet 0 07/26/2022 Active Trulicity 3 MG/0.5ML Subcutaneous Solution Pen-injector (Dulaglutide)Indica tions:Type 2 diabetes mellitus with hemoglobin A1c goal of less than 7.0% ([facility]),Ischemic heart disease Inject 3 mg under the skin once a week. 2 mL 5 07/26/2022 Active Ondansetron 8 MG Oral Tablet Disintegrating (Zofran) DISSOLVE 1 TABLET ON TONGUE EVERY 8 HOURS NEEDED FOR NAUSEA AND VOMITING. 20 Tablet 1 07/26/2022 Active Eszopiclone 3 MG Oral Tablet Take 1 Tablet by mouth at bedtime. 30 Tablet 2 08/09/2022 Active Hospital, Clinic, or Other Facility Administered Medication Ordered Dose Route Frequency Start Date End Date Status Albuterol Sulfate (Proventil) (2.5 MG/3ML) 0.083% inhalation solution 2.5 mgIndications:Cigarette smoker,Hypoxia,Pneumoni a due to infectious organism, unspecified laterality, unspecified part of lung,Vapes non-nicotine containing substance 2.5 mg NEBULIZER ONCE PRN 03/22/2022 03/22/2023 Active documented as of this encounter (statuses as of 08/30/2022) Active Problems Problem Noted Date Smokes 1 [...] as of this encounter (statuses as of 08/30/2022) Immunizations Name Administration Dates Next Due COVID-19 [...] drink = 0.6 oz pur e alcohol) Sex Assigned at Date Recorded Not on file Job Start Date Occupation Industry Not on file Not on file Not on file documented as of this encounter Plan of Treatment Upcoming Encounters Date Type Specialty Care Team Description 09/21/2022 Appointment Radiology 01/21/2023 Office Visit Family Medicine Gill Francisco MD [address] [place] [address] Scheduled Orders Name Type Priority Associated Diagnoses Orde r Schedule MYCODE SUBSEQUENT ADULT Lab Routine MyCode Research Other*[id number] Every 6 Months for 2 Occurrences starting 08/30/2022 until 09/19/2023 Health Maintenance Due Date Last Done Comments DISCUSS TOBACCO CESSATION (REFER TO SMARTSET #6893) 1970 Hepatitis B (1 of 3 - 3-dose series) 1968 Albumin/Creatinine Ratio 1986 DIABETES-FOOT EXAM 1986 Cologuard 2013 Fecal Occult Blood Test 2013 Sigmoidoscopy 2013 Zoster Vaccines (1 of 2) 2018 Pap Smear 05/26/2020 05/27/2015 COVID-19 Vaccine (4 - Moderna series) 03/11/2021 [...] - PPSV23 or PCV20) 2033 12/24/2016, 01/14/2015 Hepatitis C Screening Completed 08/03/2021 , 08/03/2021, 08/03/2021 LUNG CANCER SCREENING - USE SMARTSET 16474 Completed 03/12/2022 GARDASIL-HPV IMMUNIZATION SERIES Aged Out No longer eligible based on patient's age to complete this topic MENINGOCOCCAL (MENACTRA/MENVEO) Aged Out No longer eligible based on patient's age to complete this topic documented as of this encounter Medical Devices Not on filedocumented as of this encounter Visit Diagnoses Diagnosis MyCode Research Other*[id number] documented in this encounter Care Teams Furnace Clerk Relationship Specialty Start Date End Date Gill Francisco MD [address] [place] [facility] [place] [address] PCP - General Family Medicine 07/28/21 documented as of this encounter
--- OUTSIDE RECORDS SUMMARY | 2023-01-23 15:18 | External Medical Summary | Summary of Care ---
Author Name Unknown Organization [facility] Address [address] [place] [address] Phone [phone] Care Team Providers Care Day Porter Name Role Phone Tom Cleaning MD Primary Care Provid er Reason for Visit * Reason Onset Date Comments Medication Refill 09/03/2022 Encounter Details Date Type Department Care Team Description 09/03/[address] [facility] [address] [place] [address] Tom Cleaning MD [address] [place] [address] Other situational type phobia Allergies Active Allergy Reactions Severity Noted Date Comments Chlorpheniramine-Codeine 11/03/2021 ADDICTIVE FOR PT Metformin Nausea/vomiting High 11/22/2012 Other reaction(s): Nausea, Nausea/Vomiting documented as of this encounter (statuses as of 09/07/2022) Medications Medication Sig Dispensed Refills Start Date End Date Status Broghazlsw-DKZM-Qcr feine 50-325-40 MG Oral Capsule Take by [...] mouth at bedtime. 90 Tablet 3 3 09/04/19 23 Discontinu ed(Refill) Ondansetron 8 MG Oral Tablet Disintegrating (Zofran) dissolve on tongue.dissolve on tongue. 20 Tablet 1 3 09/05/19 23 Discontinu ed(Medicat ion List Clean Up) LORazepam 0.5 MG Oral Tablet (Ativan)Indications :Other situational type phobia Take 1 Tablet by mouth every 8 hours as needed for Anxiety. 30 Tablet 0 3 09/04/19 23 Discontinu ed(Refill) Ondansetron 8 MG Oral Tablet Disintegrating (Zofran) DISSOLVE 1 TABLET ON TONGUE EVERY 8 HOURS NEEDED FOR NAUSEA AND VOMITING. 20 Tablet 1 3 09/05/19 23 Discontinu ed(Refill) Hospital, Clinic, or Other [...] 12+ (Pfizer) 01/14/2021 DTaP - Dipth/Tet/Acell Pertussis 09/25/2013,10/0 02/2001 Pneumococcal Conjugate Vacc, 13 Valent (Prevnar) 01/14/2015 [...] Telephone Encounter - Tom Cleaning MD - 09/07/2022 8:17 AM EDT Signed Prescriptions: Disp Refills LORazepam 0.5 MG Oral Tablet (Ativan) 30 Tab*0 Sig: Take 1 Tablet by mouth every 8 hours as needed for Anxiety. Authorizing Provider: TOM CLEANING * Telephone Encounter - Marie Rivas [facility] - 09/04/2022 9:37 AM EDTPending Prescriptions: Disp Refills LORazepam 0.5 MG Oral Tablet (Ativan) 30 Tab*0 Sig: Take 1 Tablet by mouth every 8 hours as needed for Anxiety. * Telephone Encounter - Marie Rivas [facility] - 09/04/2022 9:36 AM EDT I have reviewed the patients controlled substance dispensing history in the Prescription Drug Monitoring Program in compliance with the [facility] regulations before prescribing a controlled substance. PDMP checked on 09/04/2022. Pending Prescriptions: Disp Refills LORazepam 0.5 MG Oral Tablet (Ativan) 30 Tab*0 Sig: Take 1 Tablet by mouth every 8 hours as needed for Anxiety. Last Visit: 03/22/2022 (in office), 07/20/2022 (telemedicine) Next Visit: 09/07/2022 Date medication was last filled: 07/26/22 Date medication is due for refill: 08/04/22 Pharmacy: [facility] [id number] [place] [address] [address] Is this request for a controlled substance? Yes and Urine Drug Screen Not completed Toxicology results: Results for orders placed or performed in visit on 08/03/21 TOXICOLOGY, URINESCREEN W/O CONFIRMATION Result Value Amphetamine Negative Benzodiazepines [...] upon request. Please approve if appropriate. Thanks, Marie Rivas, PharmD Clinical Pharmacist Centralized Clinical Pharmacy Services ([facility]PS - Formerly Telepharmacy) [phone] 09/04/2022 9:36 AM documented in this encounter Plan of Treatment Upcoming Encounters Date Type Specialty Care Team Description 09/07/2022 Telemedicine Tom Juárez MD [address] [id number] Arrived 09/21/2022 Appointment Radiology 01/21/2023 Office Visit Tom Juárez MD [address] [address] Health Maintenance Due Date Last Done Comments DISCUSS TOBACCO CESSATION (REFER TO SMARTSET #1861) 1970 Hepatitis B (1 of 3 - [...] 08/03/2021 LUNG CANCER SCREENING - USE SMARTSET 76576 Completed 03/12/2022 GARDASIL-HPV IMMUNIZATION SERIES Aged Out No longer eligible based on patient's age to complete this topic MENINGOCOCCAL (MENACTRA/MENVEO) Aged Out No longer eligible based on patient's age to complete this topic documented as of this encounter Medical Devices Not on filedocumented as of this encounter Visit Diagnoses Diagnosis Other situational type phobia documented in this encounter Care Teams Day Porter Relationship Specialty Start Date End Date Tom Cleaning MD [address] [id number] PCP - General Family Medicine 07/28/21 documented as of this encounter
--- OUTSIDE RECORDS SUMMARY | 2023-01-23 15:18 | External Medical Summary | Summary of Care ---
Author Name Unknown Organization [facility] Address [address] [place] [address] Phone [phone] Care Team Providers Care Supervisor Cap And Hat Production Name Role Phone Tom Cleaning MD Primary Care Provid er Reason for Visit * Reason Onset Date Comments Medication Refill 08/07/2022 Encounter Details Date Type Department Care Team Description 08/07/2022 Refill [facility] [address] [place] [address] Tom Cleaning MD [address] [place] [address] Allergies Active Allergy Reactions Severity Noted Date Comments Chlorpheniramine-Codeine 11/03/2021 ADDICTIVE FOR PT Metformin Nausea/vomiting High 11/22/2012 Other reaction(s): Nausea, Nausea/Vomiting documented as of this encounter (statuses as of 08/09/2022) Medications Medication Sig Dispensed Refills Start Date End Date Status Wldaschdim-NRRD-Rzz feine 50-325-40 MG Oral Capsule Take by [...] BEFORE MEALS. 300 Each 3 3 Active Amitriptyline HCl 10 MG Oral Tablet (Elavil) Take 3 Tablets by mouth at bedtime. 90 Tablet 3 3 Active Famotidine 40 MG Oral Tablet (Pepcid) TAKE ONE TABLET BY MOUTH IN THE MORNING 90 Tablet 1 3 Active FreeStyle Marcela 14 Day Sensor Use as directed. 2 Each 3 3 Active Gabapentin 100 MG Oral Capsule (Neurontin)Indicati ons:Persistent insomnia TAKE ONE CAPSULE BY MOUTH NIGHTLY AT BEDTIME Strength: 100 mg 30 Capsule 5 3 Active Ondansetron 8 MG Oral Tablet Disintegrating (Zofran) dissolve on tongue.dissolve on tongue. 20 Tablet 1 3 Active LORazepam 0.5 MG Oral Tablet (Ativan)Indications :Other situational type phobia Take 1 Tablet by mouth every 8 hours as needed for Anxiety. 30 Tablet 0 3 Active Trulicity 3 MG/0.5ML Subcutaneous Solution Pen-injector (Dulaglutide)Indica tions:Type 2 diabetes mellitus with hemoglobin A1c goal of less than 7.0% ([facility]),Ischemic heart disease Inject 3 mg under the skin once a week. 2 mL 5 3 Active Ondansetron 8 MG Oral Tablet Disintegrating (Zofran) DISSOLVE 1 TABLET ON TONGUE EVERY 8 HOURS NEEDED FOR NAUSEA AND VOMITING. 20 Tablet 1 3 Active Eszopiclone 3 MG Oral Tablet Take 1 Tablet by mouth at bedtime. 30 Tablet 2 3 Active Eszopiclone 3 MG Oral Tablet Take 1 Tablet by mouth at bedtime. 30 Tablet 2 3 08/08/19 23 Discontinu ed(Refill) Hospital, Clinic, or Other Facility Administered Medication Ordered Dose Route Frequency Start Date End Date Status Albuterol Sulfate (Proventil) (2.5 MG/3ML) 0.083% inhalation solution 2.5 mgIndications:Cigarette smoker,Hypoxia,Pneumoni a due to infectious organism, unspecified laterality, unspecified part of lung,Vapes non-nicotine containing substance 2.5 mg NEBULIZER ONCE PRN 03/22/2022 03/22/2023 Active documented as of this encounter (statuses as of 08/09/2022) Active Problems Problem Noted Date Smokes 1 [...] as of this encounter (statuses as of 08/09/2022) Immunizations Name Administration Dates Next Due COVID-19 [...] Telephone Encounter - Tom Cleaning MD - 08/09/2022 5:32 PM EDT Signed Prescriptions: Disp Refills Eszopiclone 3 MG Oral Tablet 30 Tab*2 Sig: Take 1 Tablet by mouth at bedtime. Authorizing Provider: TOM CLEANING * Telephone Encounter - Gladys Erickson [facility] - 08/09/2022 10:22 AM EDT Pending Prescriptions: Disp Refills Eszopiclone 3 MG Oral Tablet 30 Tab*2 Sig: Take 1 Tablet by mouth at bedtime. * Telephone Encounter - Gladys Erickson [facility] - 08/09/2022 10:21 AM EDT I have reviewed the patients controlled substance dispensing history in the Prescription Drug Monitoring Program in compliance with the [facility] regulations before prescribing a controlled substance. PDMP checked on 08/09/2022. Pending Prescriptions: Disp Refills Eszopiclone 3 MG Oral Tablet 30 Tab*2 Sig: Take 1 Tablet by mouth at bedtime. Last Visit: 03/22/2022 (in office), 07/20/2022 (telemedicine) Next Visit: 01/21/2023 Date medication was last filled: 07/12/22 Date medication is due for refill: 08/10/22 Pharmacy: [id number] [address] Is this request for [...] upon request. Please approve if appropriate. Thank you, Gladys Erickson, PharmD Clinical Pharmacist Centralized Clinical Pharmacy Services ([facility]PS) (Formerly Telepharmacy) [phone] 08/09/2022, 10:21 AM documented in this encounter Plan of Treatment Upcoming Encounters Date Type Specialty Care Team Description 09/21/2022 Appointment Radiology 01/21/2023 Office Visit Family Medicine Tom Cleaning MD [address] [place] [address] Health Maintenance Due Date Last Done Comments DISCUSS TOBACCO CESSATION (REFER TO SMARTSET #8345) 1970 Hepatitis B (1 of 3 - [...] (6 to 64 Years) (3 - PPSV23 if available, else PCV20) 2033 12/24/2016, 01/14/2015 Hepatitis C Screening Completed 08/03/2021 , 08/03/2021, 08/03/2021 LUNG CANCER SCREENING - USE SMARTSET 95754 Completed 03/12/2022 GARDASIL-HPV IMMUNIZATION SERIES Aged Out No longer eligible based on patient's age to complete this topic MENINGOCOCCAL (MENACTRA/MENVEO) Aged Out No longer eligible based on patient's age to complete this topic documented as of this encounter Medical Devices Not on filedocumented as of this encounter Care Teams Supervisor Cap [employer] Hat Production Relationship Specialty Start Date End Date Tom Cleaning MD [address] [facility] [place] [address] PCP - General Family Medicine 07/28/21 documented as of this encounter
--- OUTSIDE RECORDS SUMMARY | 2023-01-23 15:18 | External Medical Summary | Summary of Care ---
Author Name Unknown Organization [facility] Address [address] [place] [address] Phone [phone] Care Team Providers Care Resistance Welder Name Role Phone Tom Cleaning MD Primary Care Provid er Reason for Visit * Reason Onset Date Comments Medication Refill 09/03/2022 Encounter Details Date Type Department Care Team Description 09/03/2022 Refill [facility] [address] [place] [address] Tom Cleaning MD [address] [place] [address] Allergies Active Allergy Reactions Severity Noted Date Comments Chlorpheniramine-Codeine 11/03/2021 ADDICTIVE FOR PT Metformin Nausea/vomiting High 11/22/2012 Other reaction(s): Nausea, Nausea/Vomiting documented as of this encounter (statuses as of 09/04/2022) Medications Medication Sig Dispensed Refills Start Date End Date Status Gpofhyhdie-CGRU-Ucm feine 50-325-40 MG Oral Capsule Take by [...] 100 mg 30 Capsule 5 3 Active LORazepam 0.5 MG Oral [...] 23 Discontinu ed(Medicat ion List Clean Up) Ondansetron 8 MG Oral Tablet Disintegrating (Zofran) [...] as of this encounter (statuses as of 09/04/2022) Active Problems Problem Noted Date Smokes 1 [...] as of this encounter (statuses as of 09/04/2022) Immunizations Name Administration Dates Next Due COVID-19 mRNA, LNP-s, No Pre serve, 2-Dose Series (Moderna) 05/22/2020,05/01/2020 COVID-19, LNP-s, No Preserve , Sourav-sucrose, Ages 12+ ([email or web address]) 01/14/2021 DTaP - Dipth/Tet/Acell Pertussis 09/25/2013,10/0 02/2001 [...] Notes * Telephone Encounter - Magui Haq [facility] - 09/04/2022 1:37 PM EDTSigned Prescriptions: Disp Refills Amitriptyline HCl 10 MG Oral Tablet (Elavi*90 Tab*3 Sig: Take 3 Tablets by mouth at bedtime.Authorizing Provider: TOM CLEANING User: MAGUI HAQ Ondansetron 8 MG Oral Tablet Disintegratin*20 Tab*1 Sig: DISSOLVE 1 TABLET ON TONGUE EVERY 8 HOURS NEEDED FOR NAUSEA AND VOMITING.Authorizing Provider: TOM CLEANING User: MAGUI HAQ documented in this encounter Plan of Treatment Upcoming Encounters Date Type Specialty Care Team Description 09/07/2022 Telemedicine Family Medicine Tom Cleaning MD [address] [address] 09/21/2022 Appointment Radiology 01/21/2023 Office Visit Family Medicine Tom Cleaning MD [address] [place] [address] Health Maintenance Due Date Last Done Comments DISCUSS TOBACCO CESSATION (REFER TO SMARTSET #5891) 1970 Hepatitis B (1 of 3 - [...] 08/03/2021 LUNG CANCER SCREENING - USE SMARTSET 01712 Completed 03/12/2022 GARDASIL-HPV IMMUNIZATION SERIES Aged Out No longer eligible based on patient's age to complete this topic MENINGOCOCCAL (MENACTRA/MENVEO) Aged Out No longer eligible based on patient's age to complete this topic documented as of this encounter Medical Devices Not on filedocumented as of this encounter Care Teams Resistance Welder Relationship Specialty Start Date End Date Tom Cleanign MD [address] [address] PCP - General Family Medicine 07/28/21 documented as of this encounter
--- OUTSIDE RECORDS SUMMARY | 2023-01-23 15:18 | External Medical Summary | Summary of Care ---
Author Name Unknown Organization [facility] Address [address] [place] [address] Phone [phone] Care Team Providers Care Crime Scene Investigator Name Role Phone Gill Francisco MD Primary Care Provid er Reason for Visit * Reason Onset Date Comments Health Maintenance 08/24/2022 Encounter Details Date Type Department Care Team Description 08/24/2022 Telephone [facility] [address] [place] [address] Gill Francisco MD [address] [place] [address] Health Maintenance Allergies Active Allergy Reactions Severity Noted Date Comments Chlorpheniramine-Codeine 11/03/2021 ADDICTIVE FOR PT Metformin Nausea/vomiting High 11/22/2012 Other reaction(s): Nausea, Nausea/Vomiting documented as of this encounter (statuses as of 08/24/2022) Medications Medication Sig Dispensed Refills Start Date End Date Status Sohngsejzz-YBBX-Dhd feine 50-325-40 MG Oral Capsule Take by [...] as of this encounter (statuses as of 08/24/2022) Active Problems Problem Noted Date Smokes 1 [...] as of this encounter (statuses as of 08/24/2022) Immunizations Name Administration Dates Next Due COVID-19 mRNA, LNP-s, No Pre serve, 2-Dose Series (Moderna) 05/22/2020,05/01/2020 COVID-19, LNP-s, No Preserve , Sourav-sucrose, Ages 12+ (Pfizer) 01/14/2021 DTaP - Dipth/Tet/Acell Pertussis 09/25/2013,02/2001 Pneumococcal Conjugate Vacc, 13 Valent (Prevnar) 01/14/2015 [...] encounter Miscellaneous Notes * Telephone Encounter - Sheridan Melara LPN - 08/24/2022 1:27 PM EDT Care Gaps Comprehensive Care Outreach Last Office/Telemedicine Visit: 03/22/2022 (in office), 07/20/2022 (telemedicine) Next Office Visit: 01/21/2023 Hemoglobin AIC Results: Lab Results Component Value Date/Time HEMOGLOBIN A1C - [facility] 7.4 (H) 07/19/2022 12:47 PM Reviewed Health Maintenance below: Health Maintenance Topic Date Due Hepatitis B (1 of 3 - 3-dose series) Never done DISCUSS TOBACCO CESSATION (REFER TO SMARTSET #3291) Never done Albumin/Creatinine Ratio Never done DIABETES-FOOT EXAM Never done Zoster Vaccines (1 of 2) Never done Pap Smear 05/26/2020 COVID-19 Vaccine (4 - Moderna series) 03/11/2021 Mammogram 01/22/2022 DIABETES-EYE EXAM 02/25/2022 Depression Screening, Annual for Pts 12 and Over 07/28/2022 GFR 08/03/2022 Influenza Vaccine (FLU shot) (1) 10/08/2022 HbA1c 01/18/2023 Urine Pap had hyster Mamm Eye labs Care Gap Outreach Action Taken: Left message documented in this encounter Plan of Treatment Upcoming Encounters Date Type Specialty Care Team Description 09/21/2022 Appointment Radiology 01/21/2023 Office Visit Family Medicine Gill Francisco MD [address] [place] [address] Health Maintenance Due Date Last Done Comments DISCUSS TOBACCO CESSATION (REFER TO SMARTSET #7431) 1970 Hepatitis B (1 of 3 - [...] 08/03/2021 LUNG CANCER SCREENING - USE SMARTSET 54375 Completed 03/12/2022 GARDASIL-HPV IMMUNIZATION SERIES Aged Out No longer eligible based on patient's age to complete this topic MENINGOCOCCAL (MENACTRA/MENVEO) Aged Out No longer eligible based on patient's age to complete this topic documented as of this encounter Medical Devices Not on filedocumented as of this encounter Care Teams Crime Scene Investigator Relationship Specialty Start Date End Date Gill Francisco MD [address] [place] [employer] [place] [address] PCP - General Family Medicine 07/28/21 documented as of this encounter
--- NOTE | 2023-01-23 15:28 | Emergency Department Note ---
Impression & Plan Pneumonia, Hypoxia, Wheezing ED Provider Note CHIEF COMPLAINT: Shortness of breath HISTORY OF PRESENTING ILLNESS: This 52-year-old female patient presents to the emergency department with her for evaluation of shortness of breath and low oxygen levels. The patient states that she has had a cough and shortness of breath for the past week. She states today her oxygen level has been in the 80s with increasing shortness of breath. She had pneumonia in [place] last year that required admission so she had a pulse ox at home. Does not use oxygen at home. The patient is concerned she has pneumonia again. No history of COPD, wheezing, or other lung problems, but feels like she is wheezing and "gurgling" in her lungs. She denies any fevers. No chest pain, but feels like her lungs are tight and has pain in her ribs from coughing constantly. Denies abdominal pain, nausea, vomiting, or urinary symptoms. Has been taking Mucinex and an albuterol inhaler (from her last pneumonia) for her symptoms at home. Not on any blood thinners. She is a diabetic. REVIEW OF SYSTEMS: See HPI for pertinent positives and pertinent negatives. ALLERGIES: Metformin MEDICATIONS: See below PAST MEDICAL HISTORY: See below PHYSICAL EXAM: Vital Signs: Vitals are noted on the nurse's note and reviewed by myself. GENERAL: Non toxic in appearance and in no acute distress. SKIN: Capillary reflex less than 2 seconds. HEAD: Normocephalic, atraumatic. EARS: Bilateral external auditory canals clear without tragus tenderness. Bilateral tympanic membranes pearly emerson without erythema or effusion. No mastoid tenderness bilaterally. EYES: Pupils equal round and reactive to light and accommodation. Conjunctivae without injection, sclerae without icterus. Extraocular movements intact. NOSE: Patent, turbinates inflamed with no discharge. No sinus tenderness. MOUTH: Mucous membranes moist. Airway patent, uvula midline. Pharynx is not erythematous and not edematous without exudate. Pharynx without postnasal drip. No evidence for peritonsillar abscess. NECK: Supple without nuchal rigidity. No lymphadenopathy. HEART: Regular rate and rhythm without murmurs gallops or rubs. LUNGS: The patient has decreased air exchange bilaterally with wheezes throughout. Mild accessory muscle use without retractions. ABDOMEN: Positive bowel sounds x 4. Normal tympanic percussion. Soft, nontender, without masses or organomegaly. MUSCULOSKELETAL: Bilateral lower extremities nontender to palpation. No calf tenderness, erythema, or edema. Negative Homans' sign. Peripheral pulses 2+ and equal in the bilateral upper and lower extremities. NEURO: Patient was alert and oriented. DIFFERENTIAL DIAGNOSIS: Differential diagnosis includes URI, bronchitis, pneumonia, pneumothorax, hemothorax, PE, ND, pericarditis, myocarditis, airway obstruction, aspiration, pulmonary edema, asthma, COPD, CHF, pleurisy, metabolic acidosis, anemia, neoplasm, or others. ED COURSE AND MEDICAL DECISION MAKING: MONITOR: Continuous monitor technician: Order was placed for continuous monitor technician. Patient was placed on the monitor technician and continuous pulse ox. Patient was noted to be in sinus tachycardia at an initial rate of 105 bpm per my interpretation. EKG: EKG was interpreted by myself as normal sinus rhythm at 95 bpm with no acute [address] or T wave changes. MEDICATIONS GIVEN: 1 L normal saline solution bolus. Toradol 10 mg IV, Solu- Medrol 60 mg IV. DuoNeb treatment followed by an hour-long DuoNeb treatment. Rocephin 2 g IV and Zithromax 500 mg IV. INTERPRETATION OF LABS: I interpreted the labs with full lab results as below in the lab section of this note. White blood cell count elevated at 14.23. Hemoglobin elevated at 16.2. Platelet count elevated at 444. Coags normal. Glucose 179, but CMP otherwise normal. Magnesium normal. High-sensitivity troponin normal. Lactate normal. Procalcitonin normal. Urinalysis without evidence for UTI. Bio fire respiratory panel was negative. Blood cultures are pending. INTERPRETATION OF IMAGING: Imaging studies were interpreted by myself and read by radiology as per the imaging section of this note. Chest x-ray was negative for acute cardiopulmonary etiology. CTA of the chest with IV contrast shows no evidence for PE, but does show mild multifocal patchy groundglass consolidation throughout both lungs which is typical for an infectious/inflammatory pneumonitis. There is also prominent mediastinal and hilar lymph nodes which are likely reactive. CONSULTATIONS: On-call hospitalist [facility] SUMMARY: I examined the patient. An IV lock was placed and labs were drawn. The patient was given an initial DuoNeb treatment with some mild improvement of the wheezing, but persisting wheezing and poor air exchange. The patient was then given an hour-long DuoNeb treatment with continued improvement, but some persisting wheezing. The accessory muscle use improved after the DuoNeb treatments. The patient's oxygen level dropped into the high 80s on room air, but improved while during the DuoNeb treatments as well as 2 L of supplemental oxygen by nasal cannula. The patient does not use oxygen at home. The patient did remain tachycardic during her ER stay. Respiratory bio fire was negative. EKG and high-sensitivity troponin negative and I do not suspect ACS at this time. The patient's white blood cell count is elevated, but lactate and procalcitonin normal. Blood cultures are pending. Chest x-ray was negative, but the patient remained tachycardic, hypoxic, and with significant wheezing on exam. Therefore, CTA of the chest was obtained. No evidence for PE, but it does show changes typical for infectious/inflammatory pneumonitis. Suspect that the patient has pneumonia. The patient was treated with Rocephin 2 g IV and Zithromax 500 mg IV. The patient was unable to give a sputum sample while in the emergency department. Blood cultures are still pending. Due to the patient's continued hypoxia on room air, tachycardia, and wheezing on exam along with her CTA findings I feel the patient requires admission for further inpatient management. I spoke with the on-call hospitalist who agreed to admit the patient for further evaluation and treatment. Please refer to their dictation for further details. The patient's care was transferred in stable condition. DIAGNOSIS: Pneumonia Hypoxia Wheezing Past Med/Surg History Medical History Sepsis due to pneumonia Community acquired pneumonia Depressive disorder Hypercholesterolemia GERD (gastroesophageal reflux disease) Anxiety disorder Osteoarthritis Fibroid, uterine Diabetes Diverticulitis Surgical History History of hysterectomy History of recent maxillofacial surgery History of bilateral carpal tunnel release Social History Smoking Status: Unknown if ever smoked Cigarettes Per Day: 1 ppd; Hx Alcohol Use: No Hx Substance Use: Yes Last Used Substance: Days (ago) Last Used Substance Other:: 1 week ago, used once Preferred Language: [place] Communication Ability: Effective Beliefs That Will Affect Care: None marital status: Current Living Situation: Spouse current occupational status: employed current occupation: [employer] x 20 years Feels Safe at Home: Yes Assistive Devices: Glasses Allergies Allergies Allergy/AdvReac Type Severity Reaction Status Date / Time metformin AdvReac Unknown GI UPSET Verified 06/18/21 12:44 Home Meds Home Medications Medication Instructions Recorded Confirmed aspirin 81 mg tablet,delayed 81 mg PO QAM 06/29/18 01/23/23 release (Adult Low Dose Aspirin) bupropion HCl 150 mg 24 hr tablet, 150 mg PO QAM 06/29/18 01/23/23 extended release (Wellbutrin XL) eszopiclone 3 mg tablet (Lunesta) 3 mg PO HS 06/29/18 01/23/23 lorazepam 0.5 mg tablet (Ativan) 0.5 mg PO Q4 PRN Anxiety 06/29/18 01/23/23 nitroglycerin 0.4 mg sublingual 0.4 mg sublingual Q5M PRN Chest 06/29/18 01/23/23 tablet (Nitrostat) Pain rosuvastatin 40 mg tablet (Crestor) 40 mg PO QAM 06/29/18 01/23/23 amitriptyline 10 mg tablet 30 mg PO HS 01/01/19 01/23/23 insulin aspart U-100 100 unit/mL 7 unit subcut .PER SLIDING SCALE 01/01/19 01/23/23 (3 mL) subcutaneous pen (Novolog FlexPen U-100 Insulin aspart) famotidine 40 mg tablet 40 mg PO QAM 03/11/22 01/23/23 gabapentin 100 mg capsule 100 mg PO HS 03/11/22 01/23/23 omeprazole 20 mg tablet,delayed 20 mg PO QAM 03/11/22 01/23/23 release ondansetron 8 mg disintegrating 8 mg translingual Q8 PRN Nausea 03/11/22 01/23/23 tablet And Vomiting dulaglutide 3 mg/0.5 mL 3 mg subcut WK 01/23/23 01/23/23 subcutaneous pen injector (Trulicity) Previous Rx's Medication Instructions Recorded albuterol sulfate 90 mcg/actuation 1 inh inhalation Q6H PRN shortness 03/14/22 aerosol inhaler of breath or wheezing #6.7 grams dextromethorphan-guaifenesin 5 10 ml PO Q6H PRN cough #237 mL 03/14/22 mg-100 mg/5 mL oral liquid (Robitussin Cough-Chest Congestion DM) Results & Data (ED) Vital Signs Vital Signs - 24 hr 01/23/23 15:13 01/23/23 15:27 01/23/23 15:30 Temperature 36.1 C L Temperature Source Temporal Artery Scan Pulse Rate 110 H 92 H 89 Pulse Rate [Finger] Pulse Rate [Recovery] Pulse Rate from SpO2 Sensor 93 H 91 H Pulse Rhythm [Finger] Respiratory Rate 22 15 15 Respiratory Rate [Recovery] Respiratory Effort / Characteristics Non-Labored Spontaneous Respiratory Depth Normal Respiratory Pattern Blood Pressure 128/70 Blood Pressure [Right Arm] Blood Pressure Mean 89 Blood Pressure Mean [Right Arm] Blood Pressure Position [Right Arm] Pulse Oximetry 92 91 91 Pulse Oximetry [Recovery] Oxygen Delivery Method Room Air Oxygen Flow Rate Sepsis Recent Fever Within 48 Hours No Sepsis New/Unexplained Change in Mental Status N/A Sepsis Action Taken by Nursing No Action Required 01/23/23 15:33 01/23/23 15:40 01/23/23 15:50 Temperature Temperature Source Pulse Rate 93 H 92 H 93 H Pulse Rate [Finger] Pulse Rate [Recovery] Pulse Rate from SpO2 Sensor 91 H 94 H Pulse Rhythm [Finger] Respiratory Rate 15 Respiratory Rate [Recovery] Respiratory Effort / Characteristics Respiratory Depth Respiratory Pattern Blood Pressure Blood Pressure [Right Arm] Blood Pressure Mean Blood Pressure Mean [Right Arm] Blood Pressure Position [Right Arm] Pulse Oximetry 92 96 Pulse Oximetry [Recovery] Oxygen Delivery Method Oxygen Flow Rate Sepsis Recent Fever Within 48 Hours Sepsis New/Unexplained Change in Mental Status Sepsis Action Taken by Nursing 01/23/23 16:10 01/23/23 16:13 01/23/23 16:18 Temperature Temperature Source Pulse Rate 99 H 92 H Pulse Rate [Finger] Pulse Rate [Recovery] Pulse Rate from SpO2 Sensor 101 H 92 H Pulse Rhythm [Finger] Respiratory Rate Respiratory Rate [Recovery] Respiratory Effort / Characteristics Respiratory Depth Respiratory Pattern Blood Pressure Blood Pressure [Right Arm] Blood Pressure Mean Blood Pressure Mean [Right Arm] Blood Pressure Position [Right Arm] Pulse Oximetry 92 94 97 Pulse Oximetry [Recovery] Oxygen Delivery Method Room Air Oxygen Flow Rate Sepsis Recent Fever Within 48 Hours Sepsis New/Unexplained Change in Mental Status Sepsis Action Taken by Nursing 01/23/23 16:18 01/23/23 16:20 01/23/23 16:30 Temperature Temperature Source Pulse Rate 92 H Pulse Rate [Finger] Pulse Rate [Recovery] Pulse Rate from SpO2 Sensor 91 H Pulse Rhythm [Finger] Respiratory Rate Respiratory Rate [Recovery] Respiratory Effort / Characteristics Respiratory Depth Respiratory Pattern Blood Pressure 135/79 132/73 Blood Pressure [Right Arm] Blood Pressure Mean 113 102 Blood Pressure Mean [Right Arm] Blood Pressure Position [Right Arm] Pulse Oximetry 97 Pulse Oximetry [Recovery] Oxygen Delivery Method Oxygen Flow Rate Sepsis Recent Fever Within 48 Hours Sepsis New/Unexplained Change in Mental Status Sepsis Action Taken by Nursing 01/23/23 16:30 01/23/23 16:31 01/23/23 16:32 Temperature Temperature Source Pulse Rate 94 H Pulse Rate [Finger] 96 H Pulse Rate [Recovery] 94 H Pulse Rate from SpO2 Sensor 94 H Pulse Rhythm [Finger] Regular Respiratory Rate 24 Respiratory Rate [Recovery] 24 Respiratory Effort / Characteristics Non-Labored Spontaneous Respiratory Depth Normal Respiratory Pattern Regular Blood Pressure Blood Pressure [Right Arm] 132/73 Blood Pressure Mean Blood Pressure Mean [Right Arm] 92 Blood Pressure Position [Right Arm] Sitting Pulse Oximetry 99 99 Pulse Oximetry [Recovery] 87 L Oxygen Delivery Method Nasal Cannula Room Air Oxygen Flow Rate 2 Sepsis Recent Fever Within 48 Hours Sepsis New/Unexplained Change in Mental Status Sepsis Action Taken by Nursing 01/23/23 16:40 01/23/23 16:50 01/23/23 17:00 Temperature Temperature Source Pulse Rate 98 H 96 H 97 H Pulse Rate [Finger] Pulse Rate [Recovery] Pulse Rate from SpO2 Sensor 94 H 97 H 98 H Pulse Rhythm [Finger] Respiratory Rate Respiratory Rate [Recovery] Respiratory Effort / Characteristics Respiratory Depth Respiratory Pattern Blood Pressure Blood Pressure [Right Arm] Blood Pressure Mean Blood Pressure Mean [Right Arm] Blood Pressure Position [Right Arm] Pulse Oximetry 99 97 97 Pulse Oximetry [Recovery] Oxygen Delivery Method Oxygen Flow Rate Sepsis Recent Fever Within 48 Hours Sepsis New/Unexplained Change in Mental Status Sepsis Action Taken by Nursing 01/23/23 17:01 01/23/23 17:01 01/23/23 17:10 Temperature Temperature Source Pulse Rate 96 H 93 H Pulse Rate [Finger] Pulse Rate [Recovery] Pulse Rate from SpO2 Sensor 96 H 93 H Pulse Rhythm [Finger] Respiratory Rate Respiratory Rate [Recovery] Respiratory Effort / Characteristics Respiratory Depth Respiratory Pattern Blood Pressure 140/76 Blood Pressure [Right Arm] Blood Pressure Mean 85 Blood Pressure Mean [Right Arm] Blood Pressure Position [Right Arm] Pulse Oximetry 97 97 Pulse Oximetry [Recovery] Oxygen Delivery Method Oxygen Flow Rate Sepsis Recent Fever Within 48 Hours Sepsis New/Unexplained Change in Mental Status Sepsis Action Taken by Nursing 01/23/23 17:20 01/23/23 17:30 01/23/23 17:30 Temperature Temperature Source Pulse Rate 91 H 91 H Pulse Rate [Finger] Pulse Rate [Recovery] Pulse Rate from SpO2 Sensor 90 91 H Pulse Rhythm [Finger] Respiratory Rate Respiratory Rate [Recovery] Respiratory Effort / Characteristics Respiratory Depth Respiratory Pattern Blood Pressure 112/53 L Blood Pressure [Right Arm] Blood Pressure Mean 70 Blood Pressure Mean [Right Arm] Blood Pressure Position [Right Arm] Pulse Oximetry 97 96 Pulse Oximetry [Recovery] Oxygen Delivery Method Oxygen Flow Rate Sepsis Recent Fever Within 48 Hours Sepsis New/Unexplained Change in Mental Status Sepsis Action Taken by Nursing 01/23/23 17:47 01/23/23 17:49 01/23/23 17:49 Temperature Temperature Source Pulse Rate 99 H 95 H Pulse Rate [Finger] Pulse Rate [Recovery] Pulse Rate from SpO2 Sensor 96 H Pulse Rhythm [Finger] Respiratory Rate 17 Respiratory Rate [Recovery] Respiratory Effort / Characteristics Respiratory Depth Respiratory Pattern Blood Pressure 116/62 Blood Pressure [Right Arm] Blood Pressure Mean 93 Blood Pressure Mean [Right Arm] Blood Pressure Position [Right Arm] Pulse Oximetry 97 Pulse Oximetry [Recovery] Oxygen Delivery Method Oxygen Flow Rate Sepsis Recent Fever Within 48 Hours Sepsis New/Unexplained Change in Mental Status Sepsis Action Taken by Nursing 01/23/23 17:50 01/23/23 18:00 01/23/23 18:01 Temperature Temperature Source Pulse Rate 93 H 92 H Pulse Rate [Finger] Pulse Rate [Recovery] Pulse Rate from SpO2 Sensor 91 H 95 H Pulse Rhythm [Finger] Respiratory Rate 20 Respiratory Rate [Recovery] Respiratory Effort / Characteristics Respiratory Depth Respiratory Pattern Blood Pressure 127/62 Blood Pressure [Right Arm] Blood Pressure Mean 70 Blood Pressure Mean [Right Arm] Blood Pressure Position [Right Arm] Pulse Oximetry 96 95 Pulse Oximetry [Recovery] Oxygen Delivery Method Oxygen Flow Rate Sepsis Recent Fever Within 48 Hours Sepsis New/Unexplained Change in Mental Status Sepsis Action Taken by Nursing 01/23/23 18:01 01/23/23 18:05 01/23/23 18:10 Temperature Temperature Source Pulse Rate 91 H 92 H Pulse Rate [Finger] 92 H Pulse Rate [Recovery] Pulse Rate from SpO2 Sensor 93 H Pulse Rhythm [Finger] Regular Respiratory Rate 23 18 Respiratory Rate [Recovery] Respiratory Effort / Characteristics Non-Labored Spontaneous Respiratory Depth Normal Respiratory Pattern Regular Blood Pressure Blood Pressure [Right Arm] 127/62 Blood Pressure Mean Blood Pressure Mean [Right Arm] 83 Blood Pressure Position [Right Arm] Sitting Pulse Oximetry 97 97 Pulse Oximetry [Recovery] Oxygen Delivery Method Nasal Cannula Oxygen Flow Rate 2 Sepsis Recent Fever Within 48 Hours Sepsis New/Unexplained Change in Mental Status Sepsis Action Taken by Nursing 01/23/23 18:20 Temperature Temperature Source Pulse Rate 90 Pulse Rate [Finger] Pulse Rate [Recovery] Pulse Rate from SpO2 Sensor Pulse Rhythm [Finger] Respiratory Rate Respiratory Rate [Recovery] Respiratory Effort / Characteristics Respiratory Depth Respiratory Pattern Blood Pressure Blood Pressure [Right Arm] Blood Pressure Mean Blood Pressure Mean [Right Arm] Blood Pressure Position [Right Arm] Pulse Oximetry Pulse Oximetry [Recovery] Oxygen Delivery Method Oxygen Flow Rate Sepsis Recent Fever Within 48 Hours Sepsis New/Unexplained Change in Mental Status Sepsis Action Taken by Nursing Laboratory Data 01/23/23 15:28 01/23/23 15:28 Lab Results 01/23/23 01/23/23 01/23/23 Range/Units 15:28 15:53 16:18 WBC 14.23 H (4.8-10.8) K/ul RBC 5.54 H (4.20-5.40) M/uL Hgb 16.2 H (12.0-16.0) g/dl Hct 50.1 H (37.0-47.0) % MCV 90.4 (80.0-100.0) fL MCH 29.2 (25.0-34.0) pg MCHC 32.3 (32.0-36.0) g/dL RDW Std Deviation 45.3 (36.4-46.3) fL RDW Coeff of Narcisa 13.5 (11.5-14.5) % Plt Count 444 H (130-400) K/uL MPV 8.7 L (9.4-12.4) fL Immature Gran % (Auto) 0.4 % Neut % (Auto) 59.4 % Lymph % (Auto) 23.3 % Pepin % (Auto) 5.6 % Eos % (Auto) 10.2 % Baso % (Auto) 1.1 % Neut # (Auto) 8.45 H (1.40-6.50) K/uL Lymph # (Auto) 3.32 (1.20-3.40) K/uL Pepin # (Auto) 0.80 H (0.11-0.59) K/uL Eos # (Auto) 1.45 H (0.00-0.50) K/uL Baso # (Auto) 0.15 (0.00-0.20) K/uL Immature Gran # (Auto) 0.06 (0.01-0.20) K/uL PT Cancelled INR Cancelled APTT Cancelled PTT Ratio Cancelled Sodium 139 (136-145) mmol/L Potassium 4.4 (3.5-5.1) mmol/L Chloride 104 (98-107) mmol/L Carbon Dioxide 27 (21-32) mmol/L Anion Gap 8 (3-11) BUN 10 (6-23) mg/dl Creatinine 0.71 (0.6-1.2) mg/dl Est Cr Clr Drug Dosing 74.2 ml/min Est GFR ( Amer) 111.9 ml/min Est GFR (Non-Af Amer) 96.6 ml/min BUN/Creatinine Ratio 14.1 (10-20) Glucose 179 H (70-99(Fasting)) mg/dl Lactate 1.7 (0.4-2.0) mmol/L Calcium 10.1 (8.6-10.3) mg/dl Magnesium 2.1 (1.7-2.4) mg/dl Total Bilirubin 0.4 (0.2-1.0) mg/dl AST 18 (13-39) U/L ALT 22 (7-52) U/L Alkaline Phosphatase 103 (34-104) U/L Troponin I High Sens 4.6 (0-14) pg/ml Total Protein 7.9 (6.0-8.3) gm/dl Albumin 4.6 (3.4-5.0) gm/dl Globulin 3.3 (2.5-4.0) gm/dl Albumin/Globulin Ratio 1.4 (0.9-2) Procalcitonin < 0.05 (0-0.5) ng/ml Urine Color Yellow Urine Appearance Clear (Clear) Urine pH 7.5 (4.5-7.5) Ur Specific [place] 1.015 (1.000-1.030) Urine Protein Negative (Negative) Urine Glucose (UA) Negative (Negative) Urine Ketones Negative (Negative) Urine Blood Negative (Negative) Urine Nitrite Negative (Negative) Urine Bilirubin Negative (Negative) Urine Urobilinogen Negative (Negative) Ur Leukocyte Esterase Trace H (Negative) Urine WBC (Auto) 1-5 (0-5) /hpf Urine RBC (Auto) 0-4 (0-4) /hpf U Hyaline Cast (Auto) 0 (0-5) /lpf U Epithel Cells (Auto) 10-20 H (0-5) /lpf Urine Bacteria (Auto) Negative (Negative) Adenovirus (PCR) Not Detected (NotDetected) B. pertussis DNA (PCR) Not Detected (NotDetected) B.parapertussis DNA PCR Not Detected (NotDetected) C. pneumoniae DNA (PCR) Not Detected (NotDetected) Coronavirus OC43 (PCR) Not Detected (NotDetected) Coronavirus HKU1 (PCR) Not Detected (NotDetected) Coronavirus 229E (PCR) Not Detected (NotDetected) SARS-CoV-2 (PCR) Not Detected (NotDetected) Coronavirus NL63 (PCR) Not Detected (NotDetected) Human Metapneumovir PCR Not Detected (NotDetected) Influenza Type A (PCR) Not Detected (NotDetected) Influenza Type B (PCR) Not Detected (NotDetected) M. pneumoniae (PCR) Not Detected (NotDetected) Parainfluenza 1 (PCR) Not Detected (NotDetected) Parainfluenza 2 (PCR) Not Detected (NotDetected) Parainfluenza 3 (PCR) Not Detected (NotDetected) Parainfluenza 4 (PCR) Not Detected (NotDetected) RSV (PCR) Not Detected (NotDetected) Entero/Rhino (PCR) Not Detected (NotDetected) 01/23/23 Range/Units 17:05 WBC (4.8-10.8) K/ul RBC (4.20-5.40) M/uL Hgb (12.0-16.0) g/dl Hct (37.0-47.0) % MCV (80.0-100.0) fL MCH (25.0-34.0) pg MCHC (32.0-36.0) g/dL RDW Std Deviation (36.4-46.3) fL RDW Coeff of Narcisa (11.5-14.5) % Plt Count (130-400) K/uL MPV (9.4-12.4) fL Immature Gran % (Auto) % Neut % (Auto) % Lymph % (Auto) % Pepin % (Auto) % Eos % (Auto) % Baso % (Auto) % Neut # (Auto) (1.40-6.50) K/uL Lymph # (Auto) (1.20-3.40) K/uL Pepin # (Auto) (0.11-0.59) K/uL Eos # (Auto) (0.00-0.50) K/uL Baso # (Auto) (0.00-0.20) K/uL Immature Gran # (Auto) (0.01-0.20) K/uL PT 10.5 INR 1.0 APTT 31 PTT Ratio 1.1 Sodium (136-145) mmol/L Potassium (3.5-5.1) mmol/L Chloride (98-107) mmol/L Carbon Dioxide (21-32) mmol/L Anion Gap (3-11) BUN (6-23) mg/dl Creatinine (0.6-1.2) mg/dl Est Cr Clr Drug Dosing ml/min Est GFR ( Amer) ml/min Est GFR (Non-Af Amer) ml/min BUN/Creatinine Ratio (10-20) Glucose (70-99(Fasting)) mg/dl Lactate (0.4-2.0) mmol/L Calcium (8.6-10.3) mg/dl Magnesium (1.7-2.4) mg/dl Total Bilirubin (0.2-1.0) mg/dl AST (13-39) U/L ALT (7-52) U/L Alkaline Phosphatase (34-104) U/L Troponin I High Sens (0-14) pg/ml Total Protein (6.0-8.3) gm/dl Albumin (3.4-5.0) gm/dl Globulin (2.5-4.0) gm/dl Albumin/Globulin Ratio (0.9-2) Procalcitonin (0-0.5) ng/ml Urine Color Urine Appearance (Clear) Urine pH (4.5-7.5) Ur Specific [place] (1.000-1.030) Urine Protein (Negative) Urine Glucose (UA) (Negative) Urine Ketones (Negative) Urine Blood (Negative) Urine Nitrite (Negative) Urine Bilirubin (Negative) Urine Urobilinogen (Negative) Ur Leukocyte Esterase (Negative) Urine WBC (Auto) (0-5) /hpf Urine RBC (Auto) (0-4) /hpf U Hyaline Cast (Auto) (0-5) /lpf U Epithel Cells (Auto) (0-5) /lpf Urine Bacteria (Auto) (Negative) Adenovirus (PCR) (NotDetected) B. pertussis DNA (PCR) (NotDetected) B.parapertussis DNA PCR (NotDetected) C. pneumoniae DNA (PCR) (NotDetected) Coronavirus OC43 (PCR) (NotDetected) Coronavirus HKU1 (PCR) (NotDetected) Coronavirus 229E (PCR) (NotDetected) SARS-CoV-2 (PCR) (NotDetected) Coronavirus NL63 (PCR) (NotDetected) Human Metapneumovir PCR (NotDetected) Influenza Type A (PCR) (NotDetected) Influenza Type B (PCR) (NotDetected) M. pneumoniae (PCR) (NotDetected) Parainfluenza 1 (PCR) (NotDetected) Parainfluenza 2 (PCR) (NotDetected) Parainfluenza 3 (PCR) (NotDetected) Parainfluenza 4 (PCR) (NotDetected) RSV (PCR) (NotDetected) Entero/Rhino (PCR) (NotDetected) Administered Medications Discontinued Medications Albuterol (Albut/Ipratrop 3mg/0.5mg Neb 3 Ml Vial) 3 ml NEB NOW STA; Protocol Stop: 01/23/23 15:36 Last Admin: 01/23/23 16:14 Dose: 3 ml Documented By: SKLogan Albuterol (Albut/Ipratrop 3mg/0.5mg Neb 3 Ml Vial) 12 ml NEB ONE ONE; Protocol Stop: 01/23/23 17:14 Last Admin: 01/23/23 18:01 Dose: 12 ml Documented By: MAXI Guaifenesin/Codeine Phosphate (Guaifenesin/Codeine 100mg/10mg 5ml Udc) 10 ml PO NOW STA Stop: 01/23/23 20:43 Last Admin: 01/23/23 21:04 Dose: 10 ml Documented By: JAVON Sodium Chloride (Nss) 1,000 mls @ 999 mls/hr IV .Q1H1M LUCAS Stop: 01/23/23 16:45 Last Infusion: 01/23/23 16:53 Dose: Infused Documented By: Admin: 01/23/23 15:47 Dose: 999 mls/hr Documented By: MAXI Ceftriaxone Sodium (Rocephin) 2,000 mg in 50 mls @ 100 mls/hr IV NOW STA Stop: 01/23/23 18:39 Last Infusion: 01/23/23 19:01 Dose: Infused Documented By: Admin: 01/23/23 18:30 Dose: 100 mls/hr Documented By: MXAI Azithromycin 500 mg/ Dextrose 255 mls @ 125 mls/hr IV ONE ONE Stop: 01/23/23 20:12 Last Infusion: 01/23/23 21:05 Dose: Infused Documented By: Admin: 01/23/23 18:54 Dose: 125 mls/hr Documented By: MAXI Insulin Glargine (Lantus Per Unit Charge) 15 units SC TODAY@2000 ONE Stop: 01/23/23 20:01 Last Admin: 01/23/23 21:04 Dose: 15 units Documented By: JAVON Co-signed By: MATY Ioversol (Optiray 320 125ml) 119 ml IV ONCE ONE Stop: 01/23/23 17:43 Last Admin: 01/23/23 17:42 Dose: 119 ml Documented By: CRUZ Ketorolac Tromethamine (Ketorolac Tromethamine 15 Mg/Ml Vial) 10 mg IV NOW ONE Stop: 01/23/23 15:36 Last Admin: 01/23/23 16:14 Dose: 10 mg Documented By: MAXI Methylprednisolone (Methylprednisolone 125 Mg/2 Ml Vial) 60 mg IV NOW STA Stop: 01/23/23 17:14 Last Admin: 01/23/23 18:01 Dose: 60 mg Documented By: MAXI Imaging Data Radiologist's Impression: Chest X-Ray 01/23/23 15:35 TWO VIEW CHEST CLINICAL HISTORY: Dyspnea. Hypoxia. Cough. FINDINGS: PA and lateral chest radiographs are compared to chest x-ray and chest CT dated 03/12/2022. The cardiomediastinal silhouette is unremarkable. The lungs and pleural spaces are clear. There is no pneumothorax. The bony thorax appears intact. IMPRESSION: No active disease in the chest. ACT 112: Negative or not required by law. Electronically signed by: Hever Goldstein M.D. 01/23/2023 4:19 PM Chest CTA 01/23/23 17:13 CT ANGIOGRAM OF THE CHEST CLINICAL HISTORY: Dyspnea. Cough. Hypoxia. COMPARISON STUDY: Chest x-ray dated 01/23/2023. Chest CT dated 03/12/2022. TECHNIQUE: Following the IV administration of 119 cc of Optiray 320, CT angiogram of the chest was performed from the upper abdomen to the thoracic inlet utilizing the pulmonary embolus protocol. Images are reviewed in the axial, sagittal, and coronal planes. 3-D MIPS images are created and assessed. IV contrast was administered without complication. A dose lowering technique was utilized adhering to the principles of ALARA. CT DOSE: 392.45 mGy.cm FINDINGS: Thyroid: Imaged portions of the thyroid gland are normal in size and attenuation. Thoracic aorta: The thoracic aorta is normal in caliber and demonstrates standard 3-vessel arch anatomy. No dissection is seen. Pulmonary vasculature: The pulmonary trunk is normal in caliber. There are no filling defects identified in main, lobar, or segmental pulmonary branches to suggest pulmonary embolus. Heart: The heart is normal in size and without pericardial effusion. Lungs and pleural spaces: There is mild patchy groundglass consolidation seen throughout both lungs, greatest in the lingula and right lower lobe. No pleural effusion is identified. The trachea and central airways are clear. There is diffuse peribronchial thickening. There are scattered foci of mucus plugging. Scattered calcified granulomas are noted. Mediastinum: Prominent mediastinal nodes measure up to 9 mm in short axis. These are likely reactive. Ute: Prominent hilar nodes are likely reactive. Axillae: There is no axillary lymphadenopathy. Upper abdomen: Partially visualized upper abdominal viscera is within normal limits. Skeletal structures: No lytic or blastic bony lesions are seen. IMPRESSION: 1. There is no evidence of pulmonary embolus in the main, lobar, or segmental pulmonary arteries. 2. There is mild multifocal patchy ground glass consolidation seen throughout both lungs, typical for an infectious/inflammatory pneumonitis. Correlate clinically. 3. Prominent mediastinal and hilar nodes are likely reactive. 4. Additional findings as above. ACT 112: Negative or not required by law. Electronically signed by: Hever Goldstein M.D. 01/23/2023 5:58 PM Discharge Plan Visit Data Chief Complaint: Shortness of Breath/Dyspnea Stated Complaint: LOW O2,SOB ED Provider: Hever Greer ED Midlevel Provider: Ellyn Reardon Discharge Problem: Pneumonia, Hypoxia, Wheezing Patient Disposition: Admitted As Inpatient Condition: Good Discharge Instructions Interventions: ED Discharge Assessment Last Done: 01/23/23 22:10 Discharge Problem: Pneumonia Qualifiers: Pneumonia type: due to unspecified organism Laterality: unspecified laterality Lung location: unspecified part of lung Qualified Code(s): J18.9 - Pneumonia, unspecified organism
[2023-01-23] MEDS ORDERED: ALBUT/IPRATROP 3MG/0.5MG NEB 3 ML VIAL NEB STA (15:35)
[2023-01-23] MEDS ORDERED: KETOROLAC TROMETHAMINE 15 MG/ML VIAL IV ONE (15:35)
[2023-01-23] MEDS ORDERED: SODIUM CHLORIDE 0.9% 1,000 ML IV SCH (15:45)
[2023-01-23 15:54] LABS: Basophils # (auto) 0.15 K/uL (0.00-0.20); Basophils % (auto) 1.1 %; Eosinophils # (auto) 1.45 K/uL (0.00-0.50); Eosinophils % (auto) 10.2 %; Hematocrit (blood only) 50.1 % (37.0-47.0); Hemoglobin 16.2 g/dl (12.0-16.0); Immature Granulocytes # (auto) 0.06 K/uL (0.01-0.20); Immature Granulocytes % (auto) 0.4 %; Lymphocytes # (auto) 3.32 K/uL (1.20-3.40); Lymphocytes % (auto) 23.3 %; Mean Corpuscular Hemoglobin 29.2 pg (25.0-34.0); Mean Corpuscular Hgb Conc 32.3 g/dL (32.0-36.0); Mean Corpuscular Volume 90.4 fL (80.0-100.0); Mean Platelet Volume 8.7 fL (9.4-12.4); Monocytes % (auto) 5.6 %; Neutrophils # (auto) 8.45 K/uL (1.40-6.50); Neutrophils % (auto) 59.4 %; Platelet Count 444 K/uL (130-400); RDW Coefficient of Variation 13.5 % (11.5-14.5); RDW Standard Deviation 45.3 fL (36.4-46.3); Red Blood Count 5.54 M/uL (4.20-5.40); White Blood Count 14.23 K/ul (4.8-10.8)
[2023-01-23 16:09] LABS: Albumin Globulin Ratio 1.4 (0.9-2); Albumin Level 4.6 gm/dl (3.4-5.0); BUN Creatinine Ratio 14.1 (10-20); Bilirubin,Total 0.4 mg/dl (0.2-1.0); Calcium 10.1 mg/dl (8.6-10.3); Creatinine Clr Calc Pharmacy 74.2 ml/min; Est GFR (African American) 111.9 ml/min; Est GFR (Non-African American) 96.6 ml/min; Globulin 3.3 gm/dl (2.5-4.0); Magnesium 2.1 mg/dl (1.7-2.4); Potassium 4.4 mmol/L (3.5-5.1); Total Protein 7.9 gm/dl (6.0-8.3)
[2023-01-23 16:15] LABS: Troponin I High Sensitivity 4.6 pg/ml (0-14)
--- NOTE | 2023-01-23 16:21 | XRay Report ---
TWO VIEW CHEST CLINICAL HISTORY: Dyspnea. Hypoxia. Cough. FINDINGS: PA and lateral chest radiographs are compared to chest x-ray and chest CT dated 03/12/2022. T he cardiomediastinal silhouette is unremarkable. The lungs and pleural spaces are clear. There is no pneumothorax. The bony thorax appears intact. IMPRESSION: No active disease in the chest. ACT 112: Negative or not required by law. Electronically signed by: Hever Goldstein M.D. 01/23/2023 4:19 PM
[2023-01-23 16:30] LABS: Appearance Urine Clear (Clear); Bilirubin Urine Negative (Negative); Blood Urine Negative (Negative); Color Urine Yellow; Glucose Urine UA Negative (Negative); Ketones Urine Negative (Negative); Leukocyte Esterase Urine Trace (Negative); Nitrite Urine Negative (Negative); Protein Urine Negative (Negative); Specific Gravity Urine 1.015 (1.000-1.030); Urobilinogen Urine Negative (Negative); pH Urine 7.5 (4.5-7.5)
[2023-01-23 16:42] LABS: Bacteria Urine Automated Negative (Negative); Cast Urine Automated 0 /lpf (0-5); RBC Urine Automated 0-4 /hpf (0-4)
[2023-01-23] MEDS ORDERED: methylPREDNISolone 125 MG/2 ML VIAL IV STA (17:13)
[2023-01-23] MEDS ORDERED: ALBUT/IPRATROP 3MG/0.5MG NEB 3 ML VIAL NEB ONE (17:13)
[2023-01-23 17:16] LABS: Adenovirus PCR Not Detected (NotDetected); Bordetella parapertussis PCR Not Detected (NotDetected); Bordetella pertussis PCR Not Detected (NotDetected); Chlamydia pneumoniae PCR Not Detected (NotDetected); Coronavirus 229E PCR Not Detected (NotDetected); Coronavirus CoV-2 (COVID19)PCR Not Detected (NotDetected); Coronavirus HKU1 PCR Not Detected (NotDetected); Coronavirus NL63 PCR Not Detected (NotDetected); Coronavirus OC43PCR Not Detected (NotDetected); Human Metapneumovirus PCR Not Detected (NotDetected); Influenza A PCR Not Detected (NotDetected); Influenza B PCR Not Detected (NotDetected); Mycoplasma pneumoniae PCR Not Detected (NotDetected); Parainfluenza Virus 1 PCR Not Detected (NotDetected); Parainfluenza Virus 2 PCR Not Detected (NotDetected); Parainfluenza Virus 3 PCR Not Detected (NotDetected); Parainfluenza Virus 4 PCR Not Detected (NotDetected); Respiratory Syncytial VirusPCR Not Detected (NotDetected); Rhinovirus/Enterovirus PCR Not Detected (NotDetected)
[2023-01-23] MEDS ORDERED: OPTIRAY 320 125ml IV ONE (17:42)
--- NOTE | 2023-01-23 18:00 | CT Scan Report ---
CT ANGIOGRAM OF THE CHEST CLINICAL HISTORY: Dyspnea. Cough. Hypoxia. COMPARISON STUDY: Chest x-ray dated 01/23/2023. Chest CT dated 03/12/2022. TECHNIQUE: Following the IV administration of 119 cc of Optiray 320, CT angiogram of the chest was pe rformed from the upper abdomen to the thoracic inlet utilizing the pulmonary embolus protocol. Images are reviewed in the axial, sagittal, and coronal planes. 3-D MIPS images are created and assessed. I V contrast was administered without complication. A dose lowering technique was utilized adhering to the principles of ALARA. CT DOSE: 392.45 mGy.cm FINDINGS: Thyroid: Imaged portions of the thyroid gland are normal in size and attenuation. Thoracic aorta: The thoracic aorta is normal in caliber and demonstrates standard 3-vessel arch anato my. No dissection is seen. Pulmonary vasculature: The pulmonary trunk is normal in caliber. There are no filling defects identif ied in main, lobar, or segmental pulmonary branches to suggest pulmonary embolus. Heart: The heart is normal in size and without pericardial effusion. Lungs and pleural spaces: There is mild patchy groundglass consolidation seen throughout both lungs, greatest in the lingula and right lower lobe. No pleural effusion is identified. The trachea and cent ral airways are clear. There is diffuse peribronchial thickening. There are scattered foci of mucus p lugging. Scattered calcified granulomas are noted. Mediastinum: Prominent mediastinal nodes measure up to 9 mm in short axis. These are likely reactive. Ute: Prominent hilar nodes are likely reactive. Axillae: There is no axillary lymphadenopathy. Upper abdomen: Partially visualized upper abdominal viscera is within normal limits. Skeletal structures: No lytic or blastic bony lesions are seen. IMPRESSION: 1. There is no evidence of pulmonary embolus in the main, lobar, or segmental pulmonary arteries. 2. There is mild multifocal patchy ground glass consolidation seen throughout both lungs, typical for an infectious/inflammatory pneumonitis. Correlate clinically. 3. Prominent mediastinal and hilar nodes are likely reactive. 4. Additional findings as above. ACT 112: Negative or not required by law. Electronically signed by: Hever Goldstein M.D. 01/23/2023 5:58 PM
[2023-01-23] MEDS ORDERED: AZITHROMYCIN 500 MG in DEXTROSE 5% 250 ML IV ONE (18:10)
[2023-01-23] MEDS ORDERED: cefTRIAXone SODIUM 2,000 MG/50 ML BAG IV STA (18:10)
[2023-01-23 18:13] LABS: Partial Thromboplastin Ratio 1.1; Partial Thromboplastin Time 31 Seconds (21-31); Prothrombin Time 10.5 Seconds (9.0-12.0)
[2023-01-23] MEDS ORDERED: ACETAMINOPHEN 325 MG TAB PO PRN (18:29)
[2023-01-23] MEDS ORDERED: POLYETHYLENE (MIRALAX) 17 GM PACK PO PRN (18:29)
[2023-01-23] MEDS ORDERED: ALUMINUM/MAGNESIUM SUSP 30 ML UDC PO PRN (18:29)
[2023-01-23] MEDS ORDERED: MAGNESIUM HYDROXIDE SUSP 30 ML UDC PO PRN (18:29)
--- NOTE | 2023-01-23 18:50 | History & Physical Report ---
Date of Service January 23, 2023 Assessment & Plan (1) Sepsis due to pneumonia: (2) Community acquired pneumonia: (3) Hypoxia: (4) Insulin dependent diabetes mellitus: (5) Hypercholesterolemia: (6) Depressive disorder: (7) Anxiety disorder: (8) GERD (gastroesophageal reflux disease): Plan Ms. Oh is a 52-year-old female that presented to the ED with symptoms including cough and shortness of breath that started last Tuesday. She denies any fever or chills and has been experiencing a worsening nonproductive cough since then. She has been checking her oxygen at home with a portable monitor and noticed that she was in the mid 80s today. Patient smokes tobacco 1 pack/day, no alcohol or recreational drug use. Patient does have medical marijuana card but has not filled that in months. Additional past medical history includes insulin-dependent diabetes mellitus, depression and anxiety, OA, HLD, and GERD. CXR negative for acute cardiopulmonary disease. Chest CT which was unremarkable for PE; There is mild multifocal patchy ground glass consolidation seen throughout both lungs, typical for an infectious/inflammatory pneumonitis.; suggest correlate clinically; Prominent mediastinal and hilar nodes are likely reactive. Leukocytosis in ED WBC 14.23, lactate 1.7, no ERIC, UA negative, bio fire negative for COVID, RSV, influenza. In the ED, patient had wheezing lung sounds; patient received DuoNeb and is currently receiving 1 hour-long nebulizer. Started on ceftriaxone plus azithromycin and received Solu-Medrol 60 mg IV once. Pt smokes 1ppd cigarettes, encouraged smoking cessation. May need to consider PFT's as outpatient or COPD as differential. Suspect patient has community-acquired pneumonia. Will continue ceftriaxone plus azithromycin; will adjust based on blood and sputum culture results. Will add Mucinex and Tessalon Perles for cough expectorant. Will check procalcitonin and add flutter valve with incentive spirometry. Sepsis due to pneumonia: Community-acquired pneumonia: Acute Tachycardic (95), hypoxic (87%), with leukocytosis (WBC 14.23); meets sepsis criteria CXR negative for acute cardiopulmonary disease Chest CTA negative for PE; multifocal ground-glass consolidation suggestive of infectious pneumonia/pneumonitis Lactate 1.7, UA negative, biofire negative Procalcitonin ordered and pending Started on ceftriaxone plus azithromycin in ED; continue for now and adjust based on culture results Sputum and blood cultures pending Received DuoNeb +1 hour-long nebulizer in ED; cont. QID + Q2 PRN Solu-Medrol 60 mg IV given in ED; hold additional orders for steroids for now and monitor progress Flutter valve and Incentive spirometry ordered Mucinex and Tessalon Pearls for cough expectorant May need to consider PFT's as outpatient or COPD as differential ddx given tobacco history Insulin-dependent diabetes mellitus with peripheral neuropathy: Chronic stable Last A1C: 07/2022: 7.4; trend in AM Takes NovoLog; placed on ACHS SSI Takes Trulicity; hold while inpatient Takes gabapentin; continue HLD: Chronic stable Takes rosuvastatin; continue Last Lipid panel 07/2021 TG 225, HDL 32, LDL 69; obtain lipid panel in AM. Anxiety and depression: Chronic stable Takes BuSpar and amitriptyline; continue Takes lorazepam as needed for anxiety; hold for now and add as necessary Tobacco Use: Chronic smokes 1ppd cigarettes; denies Nicotine patch Encouraged smoking cessation May need to consider PFT's as outpatient or COPD diagnosis. GERD: Chronic stable Takes omeprazole; continue Disposition: PCP: Dr. Francisco CODE STATUS: Full code VTE prophylaxis: Lovenox SQ I spent a total of 87 minutes coordinating, documenting, and providing care for this patient excluding time spent in the performance of separately billed services. All of the aforementioned completed while collaborating with the assigned attending physician for a full treatment plan. Please see their addendum for further details. History of Present Illness Chief Complaint: SOB Primary Care Provider: Gill Francisco MD Ms. Oh is a 52-year-old female that presented to the ED with symptoms including cough and shortness of breath that started last Tuesday. She denies any fever or chills and has been experiencing a worsening nonproductive cough since then. She has been checking her oxygen at home with a portable monitor and noticed that she was in the mid 80s today. Patient smokes tobacco 1 pack/day, no alcohol or recreational drug use. Patient does have medical marijuana card but has not filled that in months. Additional past medical history includes insulin-dependent diabetes mellitus, depression and an xiety, OA, HLD, and GERD. CXR negative for acute cardiopulmonary disease. Chest CT which was unremarkable for PE; There is mild multifocal patchy ground glass consolidation seen throughout both lungs, typical for an infectious/inflammatory pneumonitis.; suggest correlate clinically; Prominent mediastinal and hilar nodes are likely reactive. Leukocytosis in ED WBC 14.23, lactate 1.7, no ERIC, UA negative, bio fire negative for COVID, RSV, influenza. In the ED, patient had wheezing lung sounds; patient received DuoNeb and is currently receiving 1 hour-long nebulizer. Started on ceftriaxone plus azithromycin and received Solu-Medrol 60 mg IV once. Patient denies headache, visual or auditory disturbance, vertigo, chest pain, palpitations, lower extremity swelling, abdominal pain or tenderness, nausea, vomiting, diarrhea, recent falls or trauma. On examination patient was able to hold full conversation with saturations remaining greater than 94%. Per report of patient and daughters at bedside she is less labored than when she arrived to the ED. Little air movement with auscultation. Suspect patient has community-acquired pneumonia. Will continue ceftriaxone plus azithromycin; will adjust based on blood and sputum culture results. Will add Mucinex and Tessalon Perles for cough expectorant. Will check procalcitonin and add flutter valve with incentive spirometry. Patient will be admitted for further evaluation and management. Please see A/P for further details. Allergies Allergy/AdvReac Type Severity Reaction Status Date / Time metformin AdvReac Unknown GI UPSET Verified 06/18/21 12:44 Home Medications Medication Instructions Recorded Confirmed Type aspirin 81 mg tablet,delayed 81 mg PO QAM 06/29/18 01/23/23 History release (Adult Low Dose Aspirin) bupropion HCl 150 mg 24 hr tablet, 150 mg PO QAM 06/29/18 01/23/23 History extended release (Wellbutrin XL) eszopiclone 3 mg tablet (Lunesta) 3 mg PO HS 06/29/18 01/23/23 History lorazepam 0.5 mg tablet (Ativan) 0.5 mg PO Q4 PRN Anxiety 06/29/18 01/23/23 History nitroglycerin 0.4 mg sublingual 0.4 mg sublingual Q5M PRN Chest 06/29/18 01/23/23 History tablet (Nitrostat) Pain rosuvastatin 40 mg tablet (Crestor) 40 mg PO QAM 06/29/18 01/23/23 History amitriptyline 10 mg tablet 30 mg PO HS 01/01/19 01/23/23 History insulin aspart U-100 100 unit/mL 7 unit subcut .PER SLIDING SCALE 01/01/19 01/23/23 History (3 mL) subcutaneous pen (Novolog FlexPen U-100 Insulin aspart) famotidine 40 mg tablet 40 mg PO QAM 03/11/22 01/23/23 History gabapentin 100 mg capsule 100 mg PO HS 03/11/22 01/23/23 History omeprazole 20 mg tablet,delayed 20 mg PO QAM 03/11/22 01/23/23 History release ondansetron 8 mg disintegrating 8 mg translingual Q8 PRN Nausea 03/11/22 01/23/23 History tablet And Vomiting albuterol sulfate 90 mcg/actuation 1 inh inhalation Q6H PRN shortness 03/14/22 01/23/23 Rx aerosol inhaler of breath or wheezing #6.7 grams dextromethorphan-guaifenesin 5 10 ml PO Q6H PRN cough #237 mL 03/14/22 01/23/23 Rx mg-100 mg/5 mL oral liquid (Robitussin Cough-Chest Congestion DM) dulaglutide 3 mg/0.5 mL 3 mg subcut WK 01/23/23 01/23/23 History subcutaneous pen injector (Trulicity) Past Med/Surg History Medical History Sepsis due to pneumonia Community acquired pneumonia Depressive disorder Hypercholesterolemia GERD (gastroesophageal reflux disease) Anxiety disorder Osteoarthritis Fibroid, uterine Diabetes Diverticulitis Surgical History History of hysterectomy History of recent maxillofacial surgery History of bilateral carpal tunnel release Social History Smoking Status: Unknown if ever smoked Cigarettes Per Day: 1 ppd; Hx Alcohol Use: No Hx Substance Use: Yes Last Used Substance: Days (ago) Last Used Substance Other:: 1 week ago, used once Preferred Language: Persian Communication Ability: Effective Beliefs That Will Affect Care: None marital status: Current Living Situation: Spouse current occupational status: employed current occupation: [employer] x 20 years Feels Safe at Home: Yes Assistive Devices: Glasses Review of Systems Review of Systems: Neuro: (-) Falls, trauma, slurred speech HEENT: (-) DE PAZ, dizziness, dysphagia, visual or auditory changes CV: (-) CP, palpitations, swelling Resp: (+) SOB GI: (-) appetite changes, N/V/D, bowel changes : (-) urinary changes Skin: (-) rashes Psych: (+) anxiety, depression Physical Exam Physical Exam: Neuro: AAOx4, PERRLA, no aphagia, memory changes, CNII-XII grossly intact HEENT: head normocephalic, moist mucus membranes CV: S1/S2, (-) M/G/R, (-) edema, cap refill < 3 seconds Resp: Lungs with decreased air movement. Expiratory wheezes posteriorly. GI: Abdomen S/NT/ND, Ax4 bowel sounds, (-) CVA tenderness Musculoskeletal: 5/5 B/L UE strength, 5/5 B/L LE strength. No gait disturbance; no assist devices Skin: (-) rashes , (-) erythema. Psych: euthymic mood, but reports feeling anxious Results & Data Results & Data Vital Signs (Past 12 Hours) Vital Signs Temp Pulse Pulse Pulse Resp Resp BP 01/23/23 18:30 95 H 18 01/23/23 18:05 92 H 18 01/23/23 16:32 94 H 24 01/23/23 16:31 96 H 24 01/23/23 16:10 01/23/23 15:33 93 H 01/23/23 15:13 36.1 C L 110 H 22 128/70 BP Pulse Ox Pulse Ox O2 Del Method O2 Flow Rate 01/23/23 18:30 124/77 97 Nasal Cannula 2 01/23/23 18:05 127/62 97 Nasal Cannula 2 01/23/23 16:32 87 L Room Air 01/23/23 16:31 132/73 99 Nasal Cannula 2 01/23/23 16:10 92 Room Air 01/23/23 15:33 01/23/23 15:13 92 Room Air Laboratory Results Short CBC 01/23/23 Range/Units 15:28 WBC 14.23 H (4.8-10.8) K/ul Hgb 16.2 H (12.0-16.0) g/dl Hct 50.1 H (37.0-47.0) % Plt Count 444 H (130-400) K/uL BMP 01/23/23 15:28 Sodium 139 Potassium 4.4 Chloride 104 Carbon Dioxide 27 BUN 10 Creatinine 0.71 Glucose 179 H Calcium 10.1 Liver Function 01/23/23 Range/Units 15:28 Total Bilirubin 0.4 (0.2-1.0) mg/dl AST 18 (13-39) U/L ALT 22 (7-52) U/L Alkaline Phosphatase 103 (34-104) U/L Albumin 4.6 (3.4-5.0) gm/dl Urine 01/23/23 Range/Units 16:18 Urine Color Yellow Urine Appearance Clear (Clear) Urine pH 7.5 (4.5-7.5) Ur Specific [place] 1.015 (1.000-1.030) Urine Protein Negative (Negative) Urine Glucose (UA) Negative (Negative) Diagnostic Findings Chest X-Ray 01/23/23 15:35 TWO VIEW CHEST CLINICAL HISTORY: Dyspnea. Hypoxia. Cough. FINDINGS: PA and lateral chest radiographs are compared to chest x-ray and chest CT dated 03/12/2022. The cardiomediastinal silhouette is unremarkable. The lungs and pleural spaces are clear. There is no pneumothorax. The bony thorax appears intact. IMPRESSION: No active disease in the chest. ACT 112: Negative or not required by law. Electronically signed by: Hever Goldstein M.D. 01/23/2023 4:19 PM Chest CTA 01/23/23 17:13 CT ANGIOGRAM OF THE CHEST CLINICAL HISTORY: Dyspnea. Cough. Hypoxia. COMPARISON STUDY: Chest x-ray dated 01/23/2023. Chest CT dated 03/12/2022. TECHNIQUE: Following the IV administration of 119 cc of Optiray 320, CT angiogram of the chest was performed from the upper abdomen to the thoracic inlet utilizing the pulmonary embolus protocol. Images are reviewed in the axial, sagittal, and coronal planes. 3-D MIPS images are created and assessed. IV contrast was administered without complication. A dose lowering technique was utilized adhering to the principles of ALARA. CT DOSE: 392.45 mGy.cm FINDINGS: Thyroid: Imaged portions of the thyroid gland are normal in size and attenuation. Thoracic aorta: The thoracic aorta is normal in caliber and demonstrates standard 3-vessel arch anatomy. No dissection is seen. Pulmonary vasculature: The pulmonary trunk is normal in caliber. There are no filling defects identified in main, lobar, or segmental pulmonary branches to suggest pulmonary embolus. Heart: The heart is normal in size and without pericardial effusion. Lungs and pleural spaces: There is mild patchy groundglass consolidation seen throughout both lungs, greatest in the lingula and right lower lobe. No pleural effusion is identified. The trachea and central airways are clear. There is diffuse peribronchial thickening. There are scattered foci of mucus plugging. Scattered calcified granulomas are noted. Mediastinum: Prominent mediastinal nodes measure up to 9 mm in short axis. These are likely reactive. Ute: Prominent hilar nodes are likely reactive. Axillae: There is no axillary lymphadenopathy. Upper abdomen: Partially visualized upper abdominal viscera is within normal limits. Skeletal structures: No lytic or blastic bony lesions are seen. IMPRESSION: 1. There is no evidence of pulmonary embolus in the main, lobar, or segmental pulmonary arteries. 2. There is mild multifocal patchy ground glass consolidation seen throughout both lungs, typical for an infectious/inflammatory pneumonitis. Correlate clinically. 3. Prominent mediastinal and hilar nodes are likely reactive. 4. Additional findings as above. ACT 112: Negative or not required by law. Electronically signed by: Hever Goldstein M.D. 01/23/2023 5:58 PM Code Status & VTE Plan Code Status Full code in the event of cardiac respiratory arrest VTE Prophylaxis Plan VTE Prophylaxis will be ordered: Yes Supervising Physician Co-Signing Physician Notes I have seen and examined the patient and have discussed the case with the provider above. I agree with the assessment and plan as stated with the following exceptions. 52 yo F diabetic smoker presents with SOB and cough for the past week. She is now hypoxic and was wheezing on initial presentation. She reports feeling slightly better since treatment in the ER, but is still reporting feeling SOB with walking to the bathroom. She recently had a one hour neb treatment. Historically she has smoked for 40 years, and reports having intermittent episodes of acute bronchitis in the past. On exam BP is 121/71, HR 106, RR 15 bpm, T 36.1. She is in NAD but tries to minimize taking deep breaths as this triggers her to cough and that hurts. She has significant wheezing in all lung chong. CV exam reveals tachy rate and regular rhythm with no m/g/r. She is euvolemic to dry. Abdomen is soft NTND. She has no gross focal neuromuscular deficits. Skin is warm and dry. Workup today includes a chest CT that is not impressive for a typical lobar bacterial pneumonia, although there is a small amount of this in different lung chong. Procalcitonin is negative. CBC reflects possible hemoconcentration. She has an eosinophilia present. Although she has a pneumonia present and is at risk for pneumonia from her diabetes and smoking, I believe there is more contributing to her hypoxia today. Agree with continuing duonebs and steroids in addition to antibiotics. Robitussin AC given for cough suppressant (pt states Tessalon doesnt work for her). Cont oxygen supplementation and wean as tolerated. Smoking cessation recommended. DO Reagan
[2023-01-23] MEDS ORDERED: GLUCOSE 40% GEL 15 GM TUBE PO PRN (19:33)
[2023-01-23] MEDS ORDERED: GLUCOSE 10 TAB/TUBE PO PRN (19:33)
[2023-01-23] MEDS ORDERED: GLUCAGON FOR INJ 1 MG VIAL SQ PRN (19:33)
[2023-01-23] MEDS ORDERED: CARBOHYDRATES FOR HYPOGLYCEMIA PO PRN (19:33)
[2023-01-23] MEDS ORDERED: DEXTROSE 50% 50 ML SYRINGE IV PRN (19:33)
[2023-01-23] MEDS ORDERED: PHARMACY GLYCEMIC MGMT CONSULT PRN (19:33)
[2023-01-23] MEDS ORDERED: LANTUS PER UNIT CHARGE SC ONE (20:00)
[2023-01-23] MEDS ORDERED: guaiFENesin/CODEINE 100MG/10MG 5ML UDC PO STA (20:42)
[2023-01-23] MEDS ORDERED: INSULIN ASPART PER UNIT CHARGE SC SCH (21:00)
[2023-01-23] MEDS ORDERED: LANTUS PER UNIT CHARGE SQ SCH (21:00)
[2023-01-23] MEDS ORDERED: BENZONATATE 100 MG CAPSULE PO SCH (21:00)
[2023-01-23] MEDS: AMITRIPTYLINE HCL 10 MG TAB PO SCH (23:03)
[2023-01-23] MEDS: GABAPENTIN 100 MG CAP PO SCH (23:04)
[2023-01-23] MEDS: INSULIN ASPART PER UNIT CHARGE SC SCH (23:04)
[2023-01-23] MEDS: guaiFENesin 600 MG TABCR PO SCH (23:04)
[2023-01-23] MEDS: ESZOPICLONE 1 MG TAB PO SCH (23:04)
[2023-01-24] MEDS ORDERED: ALBUTEROL 0.083% NEBU SOLN 3 ML VIAL ONE ×2 (00:55→00:56)
[2023-01-24] MEDS: methylPREDNISolone 40 MG in SYRINGE 0 ML IV SCH ×3 (02:20→17:44)
[2023-01-24] MEDS ORDERED: ALBUTEROL 0.083% NEBU SOLN 3 ML VIAL NEB SCH (03:00)
[2023-01-24 05:39] LABS: Albumin Globulin Ratio 1.5 (0.9-2); Albumin Level 4.1 gm/dl (3.4-5.0); BUN Creatinine Ratio 15.9 (10-20); Bilirubin,Total 0.3 mg/dl (0.2-1.0); Creatinine Clr Calc Pharmacy 85.2 ml/min; Est GFR (African American) 117.9 ml/min; Est GFR (Non-African American) 101.7 ml/min; Globulin 2.8 gm/dl (2.5-4.0); Potassium 4.3 mmol/L (3.5-5.1); Total Protein 6.9 gm/dl (6.0-8.3)
[2023-01-24 06:17] LABS: Hematocrit (blood only) 39.6 % (37.0-47.0); Hemoglobin 13.3 g/dl (12.0-16.0); Mean Corpuscular Hemoglobin 29.8 pg (25.0-34.0); Mean Corpuscular Hgb Conc 33.6 g/dL (32.0-36.0); Mean Corpuscular Volume 88.6 fL (80.0-100.0); Platelet Count 442 K/uL (130-400); RDW Coefficient of Variation 13.7 % (11.5-14.5); RDW Standard Deviation 44.6 fL (36.4-46.3); Red Blood Count 4.47 M/uL (4.20-5.40); White Blood Count 21.75 K/ul (4.8-10.8)
[2023-01-24] MEDS: ALBUT/IPRATROP 3MG/0.5MG NEB 3 ML VIAL NEB SCH ×4 (06:54→19:24)
[2023-01-24 07:47] LABS: Estimated Average Glucose 194 mg/dl; Hemoglobin A1C 8.4 % (4.5-5.6)
[2023-01-24] MEDS: PANTOprazole 40 MG TAB PO SCH (07:52)
[2023-01-24] MEDS: buPROPion XL 150 MG TABCR PO SCH (07:52)
[2023-01-24] MEDS: ASPIRIN 81 MG ECTAB PO SCH (07:52)
[2023-01-24] MEDS: FAMOTIDINE 40 MG TABLET PO SCH (07:52)
[2023-01-24] MEDS: ROSUVASTATIN CALCIUM 20 MG TAB PO SCH (07:52)
[2023-01-24] MEDS: ENOXAPARIN INJ 40 MG/0.4 ML SYR SQ SCH (07:53)
[2023-01-24] MEDS: INSULIN ASPART PER UNIT CHARGE SC SCH ×5 (08:45→23:45)
[2023-01-24] MEDS ORDERED: LANTUS PER UNIT CHARGE SC ONE (08:45)
[2023-01-24] MEDS: guaiFENesin 600 MG TABCR PO SCH ×2 (08:46→20:35)
[2023-01-24] MEDS ORDERED: LANTUS PER UNIT CHARGE SC SCH (09:00)
--- NOTE | 2023-01-24 10:12 | Pharmacy Report ---
Pharmacy Glycemic Short Note 2 - Date of Service January 24, 2023 - Glycemic Short BSG Results (Last 24 hours): 01/23/23 01/24/23 01/24/23 15:28 04:30 08:21 Glucose 179 H 225 H POC Glucose 404 H* 01/24/23 08:23 Glucose POC Glucose 331 H* OUTPATIENT ANTIDIABETIC REGIMEN: * Novolog 7 units AC SSI, Trulicity weekly ASSESSMENT: * 52 year old admitted with possible pneumonia, started on antibiotics/steroids on admission. Pharmacy consulted for glycemic management. Received total of 22 units of insulin yesterday, of which 15 units were basal insulin. * Fasting BSG elevated 331 mg/dL - will give Lantus 20 units x 1 now and will tighten novolog for AM check. If BSGs remain elevated at lunch time check, will consider IV insulin bolus. Steroids currently ordered as ongoing, will monitor closely and likely will have overnight checks PLAN FOR INPATIENT GLYCEMIC CONTROL: * Hold outpatient oral diabetes medications * Basal insulin * Lantus 20 units x 1 now this AM * Lantus 10-15 units HS - will consider moving dose to earlier if BSGs remain elevated today with steroids * Bolus insulin * NovoLog per scale ACHS or Q6hrs while NPO * Goal Range: Low 110 mg/dL - High 140 mg/dL * Correction Factor: 20 mg/dL/unit * Nutritional / Prandial insulin per carb ratio of 1 unit per 8 grams CHO consumed
[2023-01-24] MEDS: AZITHROMYCIN 500 MG in DEXTROSE 5% 250 ML IV SCH (17:44)
--- NOTE | 2023-01-24 18:17 | Hospitalist Progress Note ---
Date of Service January 24, 2023 Assessment & Plan (1) Sepsis due to pneumonia: (2) Community acquired pneumonia: (3) Hypoxia: (4) Insulin dependent diabetes mellitus: (5) Hypercholesterolemia: (6) Depressive disorder: (7) Anxiety disorder: (8) GERD (gastroesophageal reflux disease): Plan Per admitting services addendum: Ms. Oh is a 52-year-old female that presented to the ED with symptoms including cough and shortness of breath that started last Tuesday. She denies any fever or chills and has been experiencing a worsening nonproductive cough since then. She has been checking her oxygen at home with a portable monitor and noticed that she was in the mid 80s today. Patient smokes tobacco 1 pack/day, no alcohol or recreational drug use. Patient does have medical marijuana card but has not filled that in months. Additional past medical history includes insulin-dependent diabetes mellitus, depression and anxiety, OA, HLD, and GERD. CXR negative for acute cardiopulmonary disease. Chest CT which was unremarkable for PE; There is mild multifocal patchy ground glass consolidation seen throughout both lungs, typical for an infectious/inflammatory pneumonitis.; suggest correlate clinically; Prominent mediastinal and hilar nodes are likely reactive. Leukocytosis in ED WBC 14.23, lactate 1.7, no ERIC, UA negative, bio fire negative for COVID, RSV, influenza. In the ED, patient had wheezing lung sounds; patient received DuoNeb and is cur rently receiving 1 hour-long nebulizer. Started on ceftriaxone plus azithromycin and received Solu-Medrol 60 mg IV once. Pt smokes 1ppd cigarettes, encouraged smoking cessation. May need to consider PFT's as outpatient or COPD as differential. Suspect patient has community-acquired pneumonia. Will continue ceftriaxone plus azithromycin; will adjust based on blood and sputum culture results. Will add Mucinex and Tessalon Perles for cough expectorant. Will check procalcitonin and add flutter valve with incentive spirometry. Sepsis due to pneumonia: Community-acquired pneumonia: Acute Tachycardic (95), hypoxic (87%), with leukocytosis (WBC 14.23); meets sepsis criteria CXR negative for acute cardiopulmonary disease Chest CTA negative for PE; multifocal ground-glass consolidation suggestive of infectious pneumonia/pneumonitis Lactate 1.7, UA negative, biofire negative Procalcitonin ordered and pending Started on ceftriaxone plus azithromycin in ED; continue for now and adjust based on culture results Sputum and blood cultures pending Received DuoNeb +1 hour-long nebulizer in ED; cont. QID + Q2 PRN Solu-Medrol 60 mg IV given in ED; hold additional orders for steroids for now and monitor progress Flutter valve and Incentive spirometry ordered Mucinex and Tessalon Pearls for cough expectorant May need to consider PFT's as outpatient or COPD as differential ddx given tobacco history 01/24 Improving Continue ceftriaxone plus azithromycin Continue Solu-Medrol 40 every 8 hours Continue DuoNeb 4 times daily Monitor closely Insulin-dependent diabetes mellitus with peripheral neuropathy: Chronic stable Last A1C: 07/2022: 7.4; trend in AM Takes NovoLog; placed on ACHS SSI Takes Trulicity; hold while inpatient Takes gabapentin; continue Pharmacy glycemic consult on board HLD: Chronic stable Takes rosuvastatin; continue Last Lipid panel 07/2021 TG 225, HDL 32, LDL 69; obtain lipid panel in AM. Anxiety and depression: Chronic stable Takes BuSpar and amitriptyline; continue Takes lorazepam as needed for anxiety; hold for now and add as necessary Tobacco Use: Chronic smokes 1ppd cigarettes; denies Nicotine patch Encouraged smoking cessation May need to consider PFT's as outpatient or COPD diagnosis. GERD: Chronic stable Takes omeprazole; continue Disposition: PCP: Dr. Francisco CODE STATUS: Full code VTE prophylaxis: Lovenox SQ Lives at home plan of care discussed with patient in detail and at length all questions answered she is understanding, agreeable, comfortable with the plan of care Admission and Anticipated Discharge Date Admission Date: January 23, 2023 Subjective Follow-up for COPD exacerbation, multifocal pneumonia, etc. Seen sitting up in bed, comfortable, not in distress, on 2 L of oxygen via nasal cannula Patient is a good spirits States she feels improved compared to yesterday Breathing is improving, less cough, able to expectorate more sputum No chest pain No other new symptom Review of Systems Review of Systems: all noted and negative except for above Physical Exam Physical Exam: General- oriented x 3, not in distress, speaks in sentences with no effort or accessory muscle use Eyes- anicteric Neck- no JVD Lungs- mild faint scattered wheezing Heart- normal rate, regular rhythm; no murmurs Abdomen- normal bowel sounds, nondistended, soft, nontender Extremities- no pretibial edema, no calf tenderness Neuro- alert, oriented x 3; no gross focal neurologic deficits Skin- warm & dry Results & Data Results & Data Vital Signs (Past 12 Hours) Vital Signs Temp Pulse Pulse Resp BP Pulse Ox Pulse Ox 01/24/23 17:35 111 H 01/24/23 17:00 93 01/24/23 15:10 37.0 C 111 H 20 111/61 96 01/24/23 14:31 106 H 18 91 01/24/23 11:26 36.8 C 107 H 20 113/64 96 01/24/23 10:56 105 H 18 93 01/24/23 08:00 107 H 01/24/23 08:00 01/24/23 07:35 36.4 C L 114 H 20 122/70 93 01/24/23 06:54 119 H 19 93 O2 Del Method O2 Del Method O2 Flow Rate O2 Flow Rate 01/24/23 17:35 01/24/23 17:00 Nasal Cannula 5 01/24/23 15:10 Nasal Cannula 3 01/24/23 14:31 Nasal Cannula 3 01/24/23 11:26 Nasal Cannula 3 01/24/23 10:56 Nasal Cannula 4 01/24/23 08:00 01/24/23 08:00 Nasal Cannula 2 01/24/23 07:35 Nasal Cannula 5 01/24/23 06:54 Nasal Cannula 5 all noted and reviewed including below
[2023-01-24] MEDS: cefTRIAXone SODIUM 2,000 MG in DEXTROSE 5 % MINI-B 50 ML IV SCH (20:33)
[2023-01-24] MEDS: ESZOPICLONE 1 MG TAB PO SCH (20:35)
[2023-01-24] MEDS: GABAPENTIN 100 MG CAP PO SCH (20:35)
[2023-01-24] MEDS: AMITRIPTYLINE HCL 10 MG TAB PO SCH (20:35)
[2023-01-24] MEDS: LANTUS PER UNIT CHARGE SC SCH (20:36)
[2023-01-24] MEDS: ONDANSETRON INJ 2 MG/ML 2 ML VIAL IV PRN (20:40)
[2023-01-24] MEDS ORDERED: LORazepam 0.5 MG TAB PO PRN (21:20)
[2023-01-25] MEDS: methylPREDNISolone 40 MG in SYRINGE 0 ML IV SCH ×4 (01:49→23:57)
[2023-01-25] MEDS: INSULIN ASPART PER UNIT CHARGE SC SCH ×5 (05:12→20:58)
--- NOTE | 2023-01-25 05:55 | Electrocardiogram Report ---
Test Reason : Blood Pressure : / mmHG Vent. Rate : 095 BPM Atrial Rate : 095 BPM P-R Int : 122 ms QRS Dur : 072 ms QT Int : 348 ms P-R-T Axes : 072 -22 068 degrees QTc Int : 437 ms Normal sinus rhythm Normal ECG When compared with ECG of 12-MAR-2022 06:01, QT has shortened Confirmed by Owen Correia ([id number]) on 01/25/2023 5:55:41 AM Referred By: Confirmed By:Owen Correia
[2023-01-25] MEDS: ALBUT/IPRATROP 3MG/0.5MG NEB 3 ML VIAL NEB SCH ×4 (06:52→19:43)
[2023-01-25] MEDS ORDERED: LANTUS PER UNIT CHARGE SC ONE (07:15)
[2023-01-25] MEDS ORDERED: INSULIN HUMAN REGULAR PER UNIT 5 UNITS in SYRINGE 4.95 ML IV ONE (08:15)
[2023-01-25] MEDS: PANTOprazole 40 MG TAB PO SCH (08:29)
[2023-01-25] MEDS: FAMOTIDINE 40 MG TABLET PO SCH (08:29)
[2023-01-25] MEDS: ROSUVASTATIN CALCIUM 20 MG TAB PO SCH (08:29)
[2023-01-25] MEDS: ASPIRIN 81 MG ECTAB PO SCH (08:29)
[2023-01-25] MEDS: guaiFENesin 600 MG TABCR PO SCH ×2 (08:29→20:58)
[2023-01-25] MEDS: buPROPion XL 150 MG TABCR PO SCH (08:29)
[2023-01-25] MEDS: ENOXAPARIN INJ 40 MG/0.4 ML SYR SQ SCH (08:30)
[2023-01-25 09:24] LABS: BUN Creatinine Ratio 25.3 (10-20); Calcium 9.4 mg/dl (8.6-10.3); Est GFR (African American) 104.7 ml/min; Est GFR (Non-African American) 90.4 ml/min
[2023-01-25] MEDS: SODIUM CHLOR 7% 4 ML NEB NEB SCH ×2 (11:01→19:43)
--- NOTE | 2023-01-25 13:49 | Pharmacy Report ---
Pharmacy Glycemic Short Note 2 - Date of Service January 25, 2023 - Glycemic Short BSG Results (Last 24 hours): 01/24/23 01/24/23 01/24/23 16:51 20:22 23:41 Glucose POC Glucose 243 H 248 H 285 H 01/25/23 01/25/23 01/25/23 04:50 04:51 07:56 Glucose POC Glucose 445 H* 448 H* 307 H* 01/25/23 01/25/23 08:49 12:00 Glucose 230 H POC Glucose 123 H OUTPATIENT ANTIDIABETIC REGIMEN: * Novolog 7 units AC SSI, [place] weekly ASSESSMENT: 01/25 * Patient received total of 92 units of insulin yesterday, of which 35 units were basal insulin * BSGs remain elevated with ongoing steroids, despite utilizing higher parameters then weight based stress of 3 dosing. Patient very sensitive to steroid effects * Patient received about 15 units of correctional insulin overnight - plan to add onto daily basal from yesterday and target basal today 45-50 units total of basal insulin today. IV insulin bolus given this AM, BSGs at lunch trending down now <200 mg/dL * CF/CR tightened this AM, will continue same for rest of day. * Of note, steroids changing to 40 mg iv q 12 hours today (pt will still get 3 doses today) - likely will need to scale back on insulin tomorrow 01/24 * 52 year old admitted with possible pneumonia, started on antibiotics/steroids on admission. Pharmacy consulted for glycemic management. Received total of 22 units of insulin yesterday, of which 15 units were basal insulin. * Fasting BSG elevated 331 mg/dL - will give Lantus 20 units x 1 now and will tighten novolog for AM check. If BSGs remain elevated at lunch time check, will consider IV insulin bolus. Steroids currently ordered as ongoing, will monitor closely and likely will have overnight checks PLAN FOR INPATIENT GLYCEMIC CONTROL: * Hold outpatient oral diabetes medications * Basal insulin * Lantus 40 units x 1 this AM * Lantus 5-10 units HS depending on BSG value * Bolus insulin * NovoLog per scale ACHS or Q6hrs while NPO * Goal Range: Low 110 mg/dL - High 140 mg/dL * Correction Factor: 12 mg/dL/unit * Nutritional / Prandial insulin per carb ratio of 1 unit per 6 grams CHO consumed
--- NOTE | 2023-01-25 14:49 | Hospitalist Progress Note ---
Date of Service January 25, 2023 Assessment & Plan (1) Sepsis due to pneumonia: (2) Community acquired pneumonia: (3) Hypoxia: (4) Insulin dependent diabetes mellitus: (5) Hypercholesterolemia: (6) Depressive disorder: (7) Anxiety disorder: (8) GERD (gastroesophageal reflux disease): Plan Per admitting services addendum: Ms. Oh is a 52-year-old female that presented to the ED with symptoms including cough and shortness of breath that started last Tuesday. She denies any fever or chills and has been experiencing a worsening nonproductive cough since then. She has been checking her oxygen at home with a portable monitor and noticed that she was in the mid 80s today. Patient smokes tobacco 1 pack/day, no alcohol or recreational drug use. Patient does have medical marijuana card but has not filled that in months. Additional past medical history includes insulin-dependent diabetes mellitus, depression and anxiety, OA, HLD, and GERD. CXR negative for acute cardiopulmonary disease. Chest CT which was unremarkable for PE; There is mild multifocal patchy ground glass consolidation seen throughout both lungs, typical for an infectious/inflammatory pneumonitis.; suggest correlate clinically; Prominent mediastinal and hilar nodes are likely reactive. Leukocytosis in ED WBC 14.23, lactate 1.7, no ERIC, UA negative, bio fire negative for COVID, RSV, influenza. In the ED, patient had wheezing lung sounds; patient received DuoNeb and is cur rently receiving 1 hour-long nebulizer. Started on ceftriaxone plus azithromycin and received Solu-Medrol 60 mg IV once. Pt smokes 1ppd cigarettes, encouraged smoking cessation. May need to consider PFT's as outpatient or COPD as differential. Suspect patient has community-acquired pneumonia. Will continue ceftriaxone plus azithromycin; will adjust based on blood and sputum culture results. Will add Mucinex and Tessalon Perles for cough expectorant. Will check procalcitonin and add flutter valve with incentive spirometry. ACUTE HYPOXIC RESPIRATORY FAILURE SECONDARY TO COMMUNITY-ACQUIRED PNEUMONIA POSSIBLE UNDERLYING COPD EXACERBATION SEPSIS DUE TO PNEUMONIA: Acute Tachycardic (95), hypoxic (87%), with leukocytosis (WBC 14.23); meets sepsis criteria CXR negative for acute cardiopulmonary disease Chest CTA negative for PE; multifocal ground-glass consolidation suggestive of infectious pneumonia/pneumonitis Lactate 1.7, UA negative, biofire negative 01/25 Clinically improving Still on 3 L of O2 via nasal cannula, afebrile Wheezing improving Blood cultures pending Sputum culture collection pending Add hypertonic saline nebs twice daily Continue ceftriaxone plus azithromycin day #2 Continue Solu-Medrol 40 mg, decrease from 3 times daily to twice daily Continue DuoNeb 4 times daily Wean off oxygen Insulin-dependent diabetes mellitus with peripheral neuropathy: Chronic stable Last A1C: 07/2022: 7.4; trend in AM Takes NovoLog; placed on ACHS SSI Takes Trulicity; hold while inpatient Takes gabapentin; continue Hyperglycemic today Solu-Medrol IV reduced to twice daily Pharmacy glycemic consult on board HLD: Chronic stable Takes rosuvastatin; continue Last Lipid panel 07/2021 TG 225, HDL 32, LDL 69; obtain lipid panel in AM. Anxiety and depression: Chronic stable Takes BuSpar and amitriptyline; continue Takes lorazepam as needed for anxiety; hold for now and add as necessary Tobacco Use: Chronic smokes 1ppd cigarettes; denies Nicotine patch Encouraged smoking cessation GERD: Chronic stable Takes omeprazole; continue Disposition: PCP: Dr. Francisco CODE STATUS: Full code VTE prophylaxis: Lovenox SQ Lives at home Anticipate discharge to home in 1 to 2 days plan of care discussed with patient in detail and at length all questions answered she is understanding, agreeable, comfortable with the plan of care Admission and Anticipated Discharge Date Admission Date: January 23, 2023 Subjective Follow-up for COPD exacerbation, multifocal pneumonia, acute hypoxia, etc. seen sitting up in bed, on 3 L of O2 via nasal In good spirits States she is gradually improving Breathing and cough is improving Able to expectorate more sputum No chest pain, palpitations, dizziness No fevers or chills No other new symptoms Review of Systems Review of Systems: all noted and negative except for above Physical Exam Physical Exam: General- oriented x 3, not in distress, speaks in sentences with no effort or accessory muscle use Eyes- anicteric Neck- no JVD Lungs-faint intermittent wheezing bilaterally Good air entry Heart- normal rate, regular rhythm; no murmurs Abdomen- normal bowel sounds, nondistended, soft, nontender Extremities- no pretibial edema, no calf tenderness Neuro- alert, oriented x 3; no gross focal neurologic deficits Skin- warm & dry Results & Data Results & Data Vital Signs (Past 12 Hours) Vital Signs Temp Pulse Pulse Resp BP BP Pulse Ox 12/19/23 11:32 36.7 C 106 H 20 102/63 95 01/25/23 11:03 18 106 H 01/25/23 08:08 01/25/23 07:45 36.9 C 121 H 20 127/67 97 01/25/23 07:12 107 H 01/25/23 06:53 101 H 18 96 01/25/23 03:04 37.0 C 107 H 18 111/59 L 97 O2 Del Method O2 Flow Rate 01/25/23 11:32 Nasal Cannula 3 01/25/23 11:03 Nasal Cannula 3 01/25/23 08:08 Nasal Cannula 3 01/25/23 07:45 Nasal Cannula 5 01/25/23 07:12 01/25/23 06:53 Nasal Cannula 5 01/25/23 03:04 Nasal Cannula 5 all noted and reviewed including below
[2023-01-25] MEDS: AZITHROMYCIN 500 MG in DEXTROSE 5% 250 ML IV SCH (18:01)
[2023-01-25] MEDS: cefTRIAXone SODIUM 2,000 MG in DEXTROSE 5 % MINI-B 50 ML IV SCH (20:56)
[2023-01-25] MEDS: GABAPENTIN 100 MG CAP PO SCH (20:57)
[2023-01-25] MEDS: ESZOPICLONE 1 MG TAB PO SCH (20:57)
[2023-01-25] MEDS: AMITRIPTYLINE HCL 10 MG TAB PO SCH (20:58)
[2023-01-25] MEDS: LANTUS PER UNIT CHARGE SC SCH (20:59)
[2023-01-25] MEDS: ONDANSETRON INJ 2 MG/ML 2 ML VIAL IV PRN (21:06)
[2023-01-26] MEDS ORDERED: INSULIN ASPART PER UNIT CHARGE SC SCH
[2023-01-26] MEDS: ALBUT/IPRATROP 3MG/0.5MG NEB 3 ML VIAL NEB SCH ×2 (07:18→10:34)
[2023-01-26] MEDS: SODIUM CHLOR 7% 4 ML NEB NEB SCH (07:18)
[2023-01-26] MEDS: FAMOTIDINE 40 MG TABLET PO SCH (08:25)
[2023-01-26] MEDS: guaiFENesin 600 MG TABCR PO SCH (08:25)
[2023-01-26] MEDS: PANTOprazole 40 MG TAB PO SCH (08:25)
[2023-01-26] MEDS: ROSUVASTATIN CALCIUM 20 MG TAB PO SCH (08:25)
[2023-01-26] MEDS: buPROPion XL 150 MG TABCR PO SCH (08:25)
[2023-01-26] MEDS: ASPIRIN 81 MG ECTAB PO SCH (08:25)
[2023-01-26] MEDS: ENOXAPARIN INJ 40 MG/0.4 ML SYR SQ SCH (08:26)
[2023-01-26] MEDS: INSULIN ASPART PER UNIT CHARGE SC SCH (08:50)
[2023-01-26] MEDS ORDERED: LANTUS PER UNIT CHARGE SC SCH (09:00)
[2023-01-26] MEDS: methylPREDNISolone 40 MG in SYRINGE 0 ML IV SCH (10:56)
--- NOTE | 2023-01-26 15:50 | Discharge Summary ---
Date of Service January 26, 2023 Admission HPI Per Admitting Provider Ms. Oh is a 52-year-old female that presented to the ED with symptoms including cough and shortness of breath that started last Tuesday. She denies any fever or chills and has been experiencing a worsening nonproductive cough since then. She has been checking her oxygen at home with a portable monitor and noticed that she was in the mid 80s today. Patient smokes tobacco 1 pack/day, no alcohol or recreational drug use. Patient does have medical marijuana card but has not filled that in months. Additional past medical history includes insulin-dependent diabetes mellitus, depression and anxiety, OA, HLD, and GERD. CXR negative for acute cardiopulmonary disease. Chest CT which was unremarkable for PE; There is mild multifocal patchy ground glass consolidation seen throughout both lungs, typical for an infectious/inflammatory pneumonitis.; suggest correlate clinically; Prominent mediastinal and hilar nodes are likely reactive. Leukocytosis in ED WBC 14.23, lactate 1.7, no ERIC, UA negative, bio fire negative for COVID, RSV, influenza. In the ED, patient had wheezing lung sounds; patient received DuoNeb and is currently receiving 1 hour-long nebulizer. Started on ceftriaxone plus azithromycin and received Solu-Medrol 60 mg IV once. Patient denies headache, visual or auditory disturbance, vertigo, chest pain, palpitations, lower extremity swelling, abdominal pain or tenderness, nausea, vomiting, diarrhea, recent falls or trauma. On examination patient was able to hold full conversation with saturations remaining greater than 94%. Per report of patient and daughters at bedside she is less labored than when she arrived to the ED. Little air movement with auscultation. Suspect patient has community-acquired pneumonia. Will continue ceftriaxone plus azithromycin; will adjust based on blood and sputum culture results. Will add Mucinex and Tessalon Perles for cough expectorant. Will check procalcitonin and add flutter valve with incentive spirometry. Patient will be admitted for further evaluation and management. Please see A/P for further details. Admission Exam Per Admitting Provider Neuro: AAOx4, PERRLA, no aphagia, memory changes, CNII-XII grossly intact HEENT: head normocephalic, moist mucus membranes CV: S1/S2, (-) M/G/R, (-) edema, cap refill < 3 seconds Resp: Lungs with decreased air movement. Expiratory wheezes posteriorly. GI: Abdomen S/NT/ND, Ax4 bowel sounds, (-) CVA tenderness Musculoskeletal: 5/5 B/L UE strength, 5/5 B/L LE strength. No gait disturbance; no assist devices Skin: (-) rashes , (-) erythema. Psych: euthymic mood, but reports feeling anxious Principal Diagnosis COPD exacerbation Pneumonia Discharge Exam Constitutional: WD/WN, vitals as above, NAD, sitting up in bed, pleasant, conversing easily Respiratory: Bilateral clear vesicular breath sound. Cardiovascular: RRR, no murmur, no edema Vessels: no JVD or carotid bruit Chest: normal inspection of chest Abdomen: normal bowel sounds, soft, nontender, no hepatosplenomegaly Musculoskeletal: no cyanosis or clubbing, extremities motor strength 5/5 Skin: no rashes, warm and dry normal turgor Neurologic: PERRL, EOMI, accommodation nl, no face palsy, no dysarthria CN's II- XI intact bilaterally and moves all extremities Psychiatric: A+Ox3, euthymic affect Lymphatic: no cervical or axillary lymphadenopathy : deferred Discharge Data Allergies Allergy/AdvReac Type Severity Reaction Status Date / Time metformin AdvReac Unknown GI UPSET Verified 06/18/21 12:44 Consultations 01/23/23 18:24 ED Decision to Admit Stat Ordered Studies 01/23/23 17:13 CT angio chest PE protocol Stat Hospital Course (1) Sepsis due to pneumonia: (2) Community acquired pneumonia: (3) Hypoxia: (4) Insulin dependent diabetes mellitus: (5) Hypercholesterolemia: (6) Depressive disorder: (7) Anxiety disorder: (8) GERD (gastroesophageal reflux disease): Plan Ms. Oh is a 52-year-old female that presented to the ED with symptoms including cough and shortness of breath Chest x-ray on admission did not show any acute finding. Chest CTA did not show PE; was positive for multifocal groundglass consolidation. Given her history of smoking and symptoms, patient was treated for COPD exacerbation with [id number] DuoNebs, IV steroids and antibiotics. Patient showed gradual improvement throughout the hospitalization. Two-step oxygen evaluation was done; patient needed 2 L of oxygen at rest and exertion. Patient was discharged on oral steroids, LAMA and antibiotics. Nebulizer was also prescribed Patient was asked to follow-up with her primary care doctor and obtain pulmonology referral. Patient was also asked to discuss with her primary care doctor regarding medication for tobacco disorder. Please note the above document was generated using voice recognition software. It may contain grammatical, syntax or spelling errors. Any formal questions or concerns about the content, text or information contained within the body of this dictation should be directly addressed to the provider for clarification Total Time Total Time Spent Total Time Spent (In Minutes): 34 Total Time Includes: Examination of the Patient, Discharge Planning, Medication Reconciliation, Communication With Other Providers and Other Discharge Plan Discharge Items Patient Disposition: Home - Self-Care Reason For Visit: SIB,PNA Discharge Diagnosis: COPD exacerbation Pneumonia Condition on Discharge: Good Activity: Resume your previous activity Non-emergency contact: Primary Care Provider Call non-emergency contact if: you have any medication questions and your symptoms worsen Follow-up/Referrals: Gill Francisco MD [Primary Care Provider] - (Date & Time 01/28/2023 11:00 AM Provider Gill Francisco MD [facility] Please note that your previously scheduled appointment for this date has been changed from 9AM to 11AM. ) Diet: Regular Addtl Attending Provider Instructions: You were admitted to the hospital due to COPD exacerbation and pneumonia. For the COPD exacerbation, you are prescribed following medication: 1) Nebulizer with DuoNeb to be used every 8 hours for the next 3 days. Then, use it as needed basis for increasing shortness of breath. The prescription for the nebulizer solution is sent to the pharmacy. 2) prednisone 40 mg once a day for 3 days 3) Spiriva inhaler 2 puffs every day. You will need to follow-up with your primary care doctor and obtain pulmonology referral. You are started on Spiriva inhaler daily as treatment for COPD. If your insurance does not cover Spiriva, please discuss with your primary care doctor regarding alternatives. Discuss with your primary care doctor regarding starting Chantix or other medication for tobacco use disorder. For the pneumonia, you are prescribed following medication: 1) Azithromycin 500 mg once a day for 1 day 2) Cefdinir 300 mg twice a day for 3 days Pending Studies at Discharge: No Stand-Alone Forms: [employer], Smoking Cessation Medications and DC Order Prescriptions: New ipratropium-albuterol 0.5 mg-3 mg(2.5 mg base)/3 mL Solution For Nebulization 3 ml NEB QIDR PRN (Reason: sob) Qty: 90 0RF prednisone 20 mg tablet 40 mg PO DAILY 3 Days Qty: 6 0RF Spiriva Respimat 1.25 mcg/actuation mist 2 inh inhalation DAILY Qty: 4 0RF azithromycin 500 mg tablet 500 mg PO DAILY 1 Days Qty: 1 0RF cefdinir 300 mg capsule 300 mg PO BID 3 Days Qty: 6 0RF Continued aspirin [Adult Low Dose Aspirin] 81 mg tablet,delayed release (DR/EC) 81 mg PO QAM bupropion HCl [Wellbutrin XL] 150 mg tablet extended release 24 hr 150 mg PO QAM eszopiclone [Lunesta] 3 mg tablet 3 mg PO HS rosuvastatin [Crestor] 40 mg tablet 40 mg PO QAM lorazepam [Ativan] 0.5 mg tablet 0.5 mg PO Q4 PRN (Reason: Anxiety) nitroglycerin [Nitrostat] 0.4 mg tablet, sublingual 0.4 mg SL Q5M PRN (Reason: Chest Pain) Rx Instructions: place under tongue 0.4mg every 5 minutes as needed for chest pain amitriptyline 10 mg tablet 30 mg PO HS insulin aspart U-100 [Novolog FlexPen U-100 Insulin] 100 unit/mL (3 mL) Insulin Pen 7 unit subcut .PER SLIDING SCALE Rx Instructions: 7 units before each meal per sliding scale gabapentin 100 mg capsule 100 mg PO HS ondansetron 8 mg tablet,disintegrating 8 mg translingual Q8 PRN (Reason: Nausea And Vomiting) omeprazole 20 mg Tablet,Delayed Release (Dr/Ec) 20 mg PO QAM famotidine 40 mg Tablet 40 mg PO QAM albuterol sulfate 90 mcg/actuation HFA aerosol inhaler 1 inh inhalation Q6H PRN (Reason: shortness of breath or wheezing) Qty: 6.7 0RF Trulicity 3 mg/0.5 mL pen injector 3 mg SUBCUT WK Rx Instructions: Tuesday Robitussin Cough-Chest Jose DM 5-100 mg/5 mL Liquid 10 ml PO Q6H PRN (Reason: cough) Qty: 237 0RF Discharge Orders: Discharge Order (Routine); Ordered 01/26/23 Ordered By: Leonardo Jonas/Other Patient Handouts: Managing Type 2 Diabetes, Special Foot Care for Diabetes Admission Data Admit Date/Time: 01/23/23 18:29 Attending Provider: Leonardo Camargo Admit Provider: Franci Kirk Primary Care Provider: Gill Francisco Other Providers: Franci Kirk; Pranav Swanson Other Interventions: Discharge Summary Assessment (RN) Last Done: 01/26/23 11:07
== END 2023-01-26 12:59 | disposition home or self-care (01) | DRG 871 ==
LOC: ED 15:11 → EDINP 18:29 → SUATTDRO 18:29 → 2W 23:17
DX: Z88.8 Allergy status to other drugs, medicaments and biological substances; Z79.85 Long-term (current) use of injectable non-insulin antidiabetic drugs; J44.0 Chronic obstructive pulmonary disease with (acute) lower respiratory infection; Z79.4 Long term (current) use of insulin; F32.A Depression, unspecified; J96.01 Acute respiratory failure with hypoxia; A41.9 Sepsis, unspecified organism; J18.9 Pneumonia, unspecified organism; E78.00 Pure hypercholesterolemia, unspecified; Z79.82 Long term (current) use of aspirin; F17.210 Nicotine dependence, cigarettes, uncomplicated; J44.1 Chronic obstructive pulmonary disease with (acute) exacerbation; E11.65 Type 2 diabetes mellitus with hyperglycemia; Z87.01 Personal history of pneumonia (recurrent); Z99.81 Dependence on supplemental oxygen; F41.9 Anxiety disorder, unspecified; D72.10 Eosinophilia, unspecified; Z79.899 Other long term (current) drug therapy; E11.42 Type 2 diabetes mellitus with diabetic polyneuropathy; K21.9 Gastro-esophageal reflux disease without esophagitis